=== PATIENT | female | born 1995 | race Two or more races ===

== ENCOUNTER 2016-12-26 22:05 | Emergency (ER) | payer MEDICAID ==
[~2016-12-26] VITALS: Ht 162.6 cm; Wt 90.7 kg
[2016-12-26] MEDS ORDERED: NKM (22:28)
[2016-12-26 22:55] LABS: APPEARANCE,URINE CLEAR; KETONES,URINE 1+ (NEGATIVE); LEUKOCYTE ESTERASE ,URINE 1+ (NEGATIVE); NITRITE,URINE NEGATIVE (NEGATIVE); PH,URINE 5 (4.5-8.0); PROTEIN,URINE NEGATIVE (NEGATIVE); UROBILINOGEN,URINE 1 MG/DL (0.0-1.0)
[2016-12-26 23:01] LABS: RBC,URINE 0-2 /HPF (0 - 2); SQUAMOUS EPITHELIAL CELL,UR MODERATE /LPF (NONE/OCC)
[2016-12-26 23:02] LABS: AMORPHOUS SEDIMENT,UR FEW /LPF; BACTERIA,URINE MODERATE /HPF; MUCUS,URINE FEW /LPF (NONE/OCC)
[2016-12-26] MEDS ORDERED: MACROBID100 MG ORAL (23:21)
[2016-12-26] MEDS ORDERED: ZOFRAN4 MG ORAL (23:21)
--- NOTE | 2016-12-26 23:21 | Emergency Room Report ---
History of Present Illness General Chief Complaint: Vomiting Source: Patient Present Illness HPI Is a 21-year-old female with no past medical history. She presents with chief complaint of vomiting in the morning for the last 3 days. No fever chills no nausea vomiting now. She ate dinner without a problem. She also has some mild left ear pain. She is currently on control pill that she's been on for the last 2 years. Also starting her menstrual. Patient History Past Medical History: see triage record, old chart reviewed Past Surgical History: none Pertinent Family History: none Social History: Denies: smoking Last Menstrual Period: now Now: No Immunizations: other Reviewed Nursing Documentation: PMH: Agreed, PSxH: Agreed Nursing Documentation-PMH Past Medical History: No Stated History Review of Systems Eye: Denies: blurred vision, eye pain ENT: Denies: ear pain, nose congestion, throat swelling Respiratory: Denies: cough, shortness of breath Cardiovascular: Denies: chest pain, palpitations Gastrointestinal: Reports: nausea, vomiting, Denies: abdominal pain, diarrhea Musculoskeletal: Denies: back pain, joint pain Skin: Denies: rash Neurological: Denies: headache, numbness Endocrine: Denies: increased thirst, increased urine Hematologic/Lymphatic: Denies: easy bruising All Other Systems: negative except mentioned in HPI Physical Exam Vital Signs Date Time Temp Pulse Resp B/P Pulse Ox O2 Delivery O2 Flow Rate FiO2 12/26/16 22:23 98.2 78 16 146/89 100 Room Air vitals unremarkable Sp02 EP Interpretation: reviewed, normal General Appearance: well appearing, no apparent distress, alert Head: normocephalic, atraumatic Eyes: bilateral eye EOMI, bilateral eye PERRL ENT: hearing grossly normal, normal pharynx, other - TMs normal Neck: full range of motion, supple, no meningismus Respiratory: chest non-tender, lungs clear, normal breath sounds Cardiovascular #1: regular rate, rhythm, no murmur Gastrointestinal: normal bowel sounds, non tender, no mass, no organomegaly, no bruit, non-distended Musculoskeletal: back normal, gait/station normal, normal range of motion Psychiatric: mood/affect normal Skin: warm/dry Medical Decision Making Diagnostic Impression: Primary Impression: Vomiting Qualified Codes: R11.11 - Vomiting without nausea Additional Impression: UTI (urinary tract infection) Qualified Codes: N30.00 - Acute cystitis without hematuria ER Course Patient with no specific vomiting. No symptoms now. Abdominal exam showed no tenderness. No evidence of gallbladder disease. May have a mild urinary tract infection. Not . We'll discharge him. Last Vital Signs Date Time Temp Pulse Resp B/P Pulse Ox O2 Delivery O2 Flow Rate FiO2 12/26/16 22:23 98.2 78 16 146/89 100 Room Air Status: unchanged Disposition: HOME, SELF-CARE Condition: Stable Scripts Nitrofurantoin Monohyd/M-Cryst (Nitrofurantoin Dickinson-Mcr 100 mg) 100 Mg Capsule 100 MG ORAL Q12H, #14 CAP Prov: LYNN MEEHAN M.D. 12/26/16 Ondansetron (Zofran) 4 Mg Tablet 4 MG ORAL Q6H Y for Nausea & Vomiting, #5 TAB 0 Refills Prov: LYNN MEEHAN M.D. 12/26/16 Patient Instructions: Nausea and Vomiting, Adult Additional Instructions: Followup with your DrVincent in 2-3 days. Return if worse. LYNN MEEHAN M.D. Dec 26, 2016 23:21
[2016-12-26 23:47] VITALS: BP 132/79
[2016-12-26 23:48] VITALS: BP 146/89
== END 2016-12-26 23:49 | disposition home or self-care (01) ==
LOC: EMR 23:00
DX: R11.11 Vomiting without nausea (principal); N30.00 Acute cystitis without hematuria; H92.02 Otalgia, left ear; Z79.3 Long term (current) use of hormonal contraceptives
CPT/HCPCS: 81003; 81025; 87086; 99284

== ENCOUNTER 2017-07-12 19:23 | Emergency (ER) | payer MEDICAID ==
[~2017-07-12] VITALS: Ht 162.6 cm; Wt 86.2 kg
[~2017-07-12 19:23] MED LIST: MACROBID100 MG ORAL; NKM; ZOFRAN4 MG ORAL
[2017-07-12 19:40] VITALS: BP 122/83
[2017-07-12] MEDS ORDERED: FIORINAL 50-321 EACH PO (20:08)
[2017-07-12] MEDS ORDERED: ZOFRAN ODT4 MG ORAL (20:08)
[2017-07-12 20:27] VITALS: BP 122/83
--- NOTE | 2017-07-12 22:50 | Emergency Room Report ---
History of Present Illness General Chief Complaint: Headache Source: Patient Present Illness HPI 22-year-old female presents ED complaining of headache. Started today earlier. States she's been having migraines since she was a teenager. But states that becoming more frequently. Initially noticed photophobia and nausea. Denies any headache at this time. Denies any neck stiffness fevers or chills. States that her brother also has migraines. Patient states she did not take medication for headaches. Denies fevers or chills. Denies cough or dysuria or hematuria. However aggravating or leading factors. Denies any other associated symptom Allergies: Coded Allergies: No Known Allergies (Unverified , 07/12/17) Patient History Past Medical History: none Past Surgical History: none Pertinent Family History: none Social History: Denies: smoking, alcohol use, drug use Last Menstrual Period: July 04 Now: No : 2 Immunizations: UTD Reviewed Nursing Documentation: PMH: Agreed, PSxH: Agreed Review of Systems All Other Systems: negative except mentioned in HPI Physical Exam Vital Signs Date Time Temp Pulse Resp B/P (MAP) Pulse Ox O2 Delivery O2 Flow Rate FiO2 07/12/17 19:29 98.2 83 18 122/83 98 Room Air Sp02 EP Interpretation: reviewed, normal General Appearance: no apparent distress, alert, GCS 15, non-toxic Head: normocephalic, atraumatic Eyes: bilateral eye normal inspection, bilateral eye PERRL ENT: hearing grossly normal, normal pharynx, no angioedema, normal voice Neck: full range of motion, supple/symm/no masses Respiratory: chest non-tender, lungs clear, normal breath sounds, speaking full sentences Cardiovascular #1: regular rate, rhythm, no edema Cardiovascular #2: 2+ carotid (R), 2+ carotid (L), 2+ radial (R), 2+ radial (L) , 2+ dorsalis pedis (R), 2+ dorsalis pedis (L) Gastrointestinal: normal bowel sounds, non tender, soft, non-distended, no guarding, no rebound Rectal: deferred Genitourinary: normal inspection, no CVA tenderness Musculoskeletal: back normal, gait/station normal, normal range of motion, non- tender Neurologic: alert, oriented x3, responsive, motor strength/tone normal, sensory intact, speech normal Psychiatric: judgement/insight normal, memory normal, mood/affect normal, no suicidal/homicidal ideation Reflexes: 3+ bicep (R), 3+ bicep (L), 3+ tricep (R), 3+ tricep (L), 3+ knee (R) , 3+ knee (L) Skin: normal color, no rash, warm/dry, well hydrated Lymphatic: no adenopathy Medical Decision Making Diagnostic Impression: Primary Impression: Migraine Qualified Codes: G43.909 - Migraine, unspecified, not intractable, without status migrainosus ER Course Hospital Course 22-year-old female presents ED complaining of headache. History of migraine. Differential diagnoses include: tension headache, migraine, dehydration Clinical course Patient placed on stretcher. After initial history, physical exam reveals a young female in no acute distress. No focal neurological deficits. No nuchal rigidity. No photophobia or blurry vision at this time. No headache at this time. Given no headache at this time I see no reason for workup or treatment Migraine strongly suspected given family history and patient described a classical symptoms of migraine including photophobia and nausea I will prescribe Fioricet and Zofran. Recommended followup with PMD and neurology consultation as outpatient i. I feel this is a highly complex case requiring extensive working including EKG/Rhythm strip, Xray/CT/US, Blood/urine lab work, repeat exams while in ED, and administration of strong opiates/narcotics for pain control, admission to hospital or close patient follow up. Diagnosis - migraine stable and discharged to home with RX Fiorcet, Zofran. f/up with PMD. return to ED if symptoms recur/worsen. Last Vital Signs Date Time Temp Pulse Resp B/P (MAP) Pulse Ox O2 Delivery O2 Flow Rate FiO2 07/12/17 19:29 98.2 83 18 122/83 98 Room Air Status: improved Disposition: HOME, SELF-CARE Condition: Stable Scripts Ondansetron Odt* (ZOFRAN ODT*) 4 Mg Tab.rapdis 4 MG ORAL Q6H Y for Nausea & Vomiting, #30 TAB 0 Refills Prov: MICHELLE LANGSTON M.D. 07/12/17 Aspirin/Caffeine/Butalbital (Fiorinal 50-325-40 mg Capsule) 1 Each Capsule 1 EA PO Q6HR, #20 CAP Prov: MICHELLE LANGSTON M.D. 07/12/17 Referrals: [facility] (PCP) Patient Instructions: Migraine Headache MICHELLE LANGSTON M.D. Jul 12, 2017 22:50
== END 2017-07-12 20:27 | disposition home or self-care (01) ==
LOC: EMR 20:00
DX: G43.909 Migraine, unspecified, not intractable, without status migrainosus (principal)
CPT/HCPCS: 99283

== ENCOUNTER 2018-11-13 21:53 | Emergency (ER) | payer MEDICAID ==
[~2018-11-13] VITALS: Ht 162.6 cm; Wt 86.2 kg
[~2018-11-13 21:53] MED LIST changes: +FIORINAL 50-321 EACH PO; +ZOFRAN ODT4 MG ORAL
[2018-11-13] MEDS ORDERED: NKM (22:10)
--- NOTE | 2018-11-13 22:27 | NUR ---
ED Nurse Note: Patient transferred from [facility] and presents with abscess at left perineal area adjacent to labia. patient has pain 10/10.
[2018-11-13 22:28] VITALS: BP 134/80
--- NOTE | 2018-11-13 22:33 | NUR ---
ED Nurse Note: ERMD at bedside to perform I&D.
[2018-11-13] MEDS ORDERED: IBUPROFEN600 MG ORAL (22:47)
[2018-11-13] MEDS ORDERED: CLINDAMYCIN HC300 MG ORAL (22:47)
--- NOTE | 2018-11-13 22:47 | Emergency Room Report ---
History of Present Illness General Chief Complaint: Skin Rash/Abscess Source: Patient Present Illness HPI Is a 23-year-old female with no significant past medical history. She presents with chief complaint of a Bartholin abscess. Onset for last few days. Getting more swollen. Painful to palpation walking. Similar symptom in the past. No other complaint. Pain is 8 out of 10. Allergies: Coded Allergies: No Known Allergies (Unverified , 07/12/17) Patient History Past Medical History: see triage record, old chart reviewed Past Surgical History: none Pertinent Family History: none Social History: Denies: smoking Last Menstrual Period: July 2018, patient currently on a depo shot Now: No : 2 Para: 2 Immunizations: other Reviewed Nursing Documentation: PMH: Agreed; PSxH: Agreed Nursing Documentation-PMH Past Medical History: No History, Except For Review of Systems Eye: Denies: eye pain, blurred vision ENT: Denies: ear pain, nose congestion, throat swelling Respiratory: Denies: cough, shortness of breath Cardiovascular: Denies: chest pain, palpitations Gastrointestinal: Denies: abdominal pain, diarrhea, nausea, vomiting Musculoskeletal: Denies: back pain, joint pain Skin: Denies: rash Neurological: Denies: headache, numbness Endocrine: Denies: increased thirst, increased urine Hematologic/Lymphatic: Denies: easy bruising All Other Systems: negative except mentioned in HPI Physical Exam Vital Signs Date Time Temp Pulse Resp B/P (MAP) Pulse Ox O2 Delivery O2 Flow Rate FiO2 11/13/18 22:06 98.8 89 20 97 Room Air 11/13/18 22:28 134/80 vitals normal Sp02 EP Interpretation: reviewed, normal General Appearance: well appearing, no apparent distress, alert Head: normocephalic, atraumatic Eyes: bilateral eye PERRL, bilateral eye EOMI ENT: hearing grossly normal, normal pharynx Neck: full range of motion, supple, no meningismus Respiratory: chest non-tender, lungs clear, normal breath sounds Cardiovascular #1: regular rate, rhythm, no murmur Gastrointestinal: normal bowel sounds, non tender, no mass, no organomegaly, no bruit, non-distended Genitourinary: other - Bartholin abscess to the left side of vagina. Exam done with female nurse in room. Musculoskeletal: back normal, gait/station normal, normal range of motion Neurologic: alert, oriented x3 Psychiatric: mood/affect normal Skin: warm/dry Procedures Incision and Drainage Incision and Drainage : Consent: Verbal Site: vagina Blade Size: 11 I & D Procedure: betadine prep Wound Location: pelvis Anesthesia: 1% Lidocaine Patient Tolerated: Well Complications: None Medical Decision Making Diagnostic Impression: Primary Impression: Bartholin's gland abscess Last Vital Signs Date Time Temp Pulse Resp B/P (MAP) Pulse Ox O2 Delivery O2 Flow Rate FiO2 11/13/18 22:28 98.8 78 20 134/80 97 Room Air Status: improved Disposition: HOME, SELF-CARE Condition: Stable Scripts Ibuprofen* (MOTRIN*) 600 Mg Tablet 600 MG ORAL THREE TIMES A DAY, #30 TAB 0 Refills Prov: Jamar Moy MD 11/13/18 Clindamycin Hcl (CLINDAMYCIN HCL) 300 Mg Capsule 300 MG ORAL THREE TIMES A DAY, #21 CAP Prov: Jamar Moy MD 11/13/18 Referrals: [facility] (PCP) Additional Instructions: Follow-up with your accountant machine processing within a week. Return if symptom worsen. Jamar Moy MD November 13, 2018 22:47
[2018-11-13 22:57] VITALS: BP 134/80
--- NOTE | 2018-11-13 22:57 | NUR ---
ED Nurse Note: Patient cleared for discharge by ERMD, no s/s of acute distress. ID band removed. Patient verbalized understanding of discharge instructions.
== END 2018-11-13 23:00 | disposition home or self-care (01) ==
LOC: EMR 22:25
DX: N75.1 Abscess of Bartholin's gland (principal)
CPT/HCPCS: 57010; 99283; Z7502

== ENCOUNTER 2018-12-23 11:32 | Emergency (ER) | payer MEDICAID ==
[~2018-12-23] VITALS: Ht 162.6 cm; Wt 81.6 kg
[~2018-12-23 11:32] MED LIST changes: +CLINDAMYCIN HC300 MG ORAL; +IBUPROFEN600 MG ORAL
[2018-12-23 11:53] VITALS: BP 137/91
--- NOTE | 2018-12-23 11:53 | NUR ---
ED Nurse Note:pt. came with left vaginal swelling possible cyst, exam was done by ER MD in my presence, no c/o pain at this time, no drainage noted
[2018-12-23] MEDS ORDERED: CLINDAMYCIN HC300 MG ORAL (11:54)
[2018-12-23] MEDS ORDERED: IBUPROFEN600 MG ORAL (11:54)
[2018-12-23 11:57] VITALS: BP 137/91
--- NOTE | 2018-12-23 11:58 | NUR ---
ER DISCHARGE NOTE: Patient is cleared to be discharged per ERMD, pt is aox4, on room air, with stable vital signs. pt was given dc and prescription instructions, pt was able to verbalize understanding pt is able to ambulate with steady gait. pt took all belongings.
--- NOTE | 2018-12-23 13:59 | Emergency Room Report ---
History of Present Illness General Chief Complaint: Skin Rash/Abscess Source: Patient Present Illness HPI Patient presents with complaints of the left lower vaginal area discomfort similar to previous Patient had incision performed here last month Reports that the area had improved however over the past several days again felt a small increased palpable area in the lateral vaginal area This was also associated with some discomfort on touch Denies any vaginal discharge denies any fevers or chills patient has not had the ability to follow-up with tunnel kiln firer since then Allergies: Coded Allergies: No Known Allergies (Unverified , 07/12/17) Patient History Past Medical History: see triage record Pertinent Family History: none Last Menstrual Period: LAST WEEK Reviewed Nursing Documentation: PMH: Agreed; PSxH: Agreed Nursing Documentation-PMH Past Medical History: No Stated History Review of Systems All Other Systems: negative except mentioned in HPI Physical Exam Vital Signs Date Time Temp Pulse Resp B/P (MAP) Pulse Ox O2 Delivery O2 Flow Rate FiO2 12/23/18 11:34 98.1 91 23 137/91 (106) 100 Room Air Sp02 EP Interpretation: reviewed, normal General Appearance: well appearing, no apparent distress Head: normocephalic, atraumatic Eyes: bilateral eye PERRL, bilateral eye EOMI ENT: hearing grossly normal, normal pharynx Neck: supple Respiratory: lungs clear Cardiovascular #1: regular rate, rhythm Gastrointestinal: non tender, soft Genitourinary: other - Left lower area of the Labora minor of the vaginal area reveals a small palpable cyst type structure no erythema approximately half by half centimeter Musculoskeletal: normal inspection Neurologic: alert, oriented x3 Skin: other - As noted above Lymphatic: no adenopathy Medical Decision Making Diagnostic Impression: Primary Impression: bartholyn cyst ER Course Patient appears to have findings consistent with a Bartholin cyst does not appear to be Infected at this time I discussed with the patient's the importance of close follow-up with gynecology As given the lack of full improvement with incision She will likely require further more in-depth evaluation by this specialty and possible further procedure patient is otherwise medically stable Was prophylactically placed on antibiotics and requires close follow-up Last Vital Signs Date Time Temp Pulse Resp B/P (MAP) Pulse Ox O2 Delivery O2 Flow Rate FiO2 12/23/18 11:57 98.1 72 23 137/91 100 Room Air Status: unchanged Disposition: HOME, SELF-CARE Condition: Stable Scripts Ibuprofen* (MOTRIN*) 600 Mg Tablet 600 MG ORAL Q8H PRN for For Pain, #20 TAB 0 Refills Prov: Norris Rivas DO 12/23/18 Clindamycin Hcl (CLINDAMYCIN HCL) 300 Mg Capsule 300 MG ORAL THREE TIMES A DAY, #21 CAP Prov: Norris Rivas DO 12/23/18 Referrals: [facility] Patient Instructions: Bartholin Cyst or Abscess, [id number] Additional Instructions: Patient is provided with the discharge instructions notified to follow up with primary doctor in the next 2-3 days otherwise return to the er with any worsening symptoms. Please note that this report is being documented using [employer] technology. This can lead to erroneous entry secondary to incorrect interpretation by the dictating instrument. Norris Rivas DO Dec 23, 2018 13:59
== END 2018-12-23 13:30 | disposition home or self-care (01) ==
LOC: EMR 13:20
DX: N75.0 Cyst of Bartholin's gland (principal)
CPT/HCPCS: 99282

== ENCOUNTER 2019-02-08 11:26 | Emergency (ER) | payer MEDICAID ==
[~2019-02-08] VITALS: Ht 162.6 cm; Wt 83.9 kg
[2019-02-08 11:37] VITALS: BP 116/75
[2019-02-08] MEDS ORDERED: CEPHALEXIN500 M1 ORAL (12:11)
[2019-02-08] MEDS ORDERED: IBUPROFEN600 MG ORAL (12:11)
--- NOTE | 2019-02-08 12:13 | Emergency Room Report ---
History of Present Illness General Chief Complaint: Toothache Source: Patient, Medical Record Present Illness HPI 23-year-old female complaining of left sided tooth ache X3 days. States pain is 10/10, Sharp in quality. No aggravating/ relieving factors. Denies fall or trauma. Denies fever, rash, vomiting, diarrhea or abdominal pain. Denies chest pain or shortness of breath. LMP February 02, 2019. No current medications. Has appt with dentist scheduled in 5 days. Allergies: Coded Allergies: No Known Allergies (Unverified , 07/12/17) Patient History Past Medical History: none Past Surgical History: none Social History: Denies: smoking, alcohol use, drug use Last Menstrual Period: 01/2019 Now: No : 2 Para: 0 Nursing Documentation-PMH Past Medical History: No Stated History Review of Systems All Other Systems: negative except mentioned in HPI Physical Exam Vital Signs Date Time Temp Pulse Resp B/P (MAP) Pulse Ox O2 Delivery O2 Flow Rate FiO2 02/08/19 11:32 98.2 72 18 116/75 (89) 99 Room Air Sp02 EP Interpretation: reviewed, normal Eyes: bilateral eye normal inspection, bilateral eye PERRL ENT: normal pharynx, TMs + canals normal, other - no erythema over left cheek or jaw. left lower posterior molar: TTP with tongue depressor, multiple cavities. Respiratory: chest non-tender, lungs clear, normal breath sounds, speaking full sentences Cardiovascular #1: regular rate, rhythm, no edema Neurologic: alert, oriented x3, responsive, motor strength/tone normal, sensory intact, speech normal Psychiatric: mood/affect normal Medical Decision Making PA Attestation This patient was seen under the direct supervision of [Dr. Deluca] who directed all aspects of care and diagnostic interpretation. Diagnostic Impression: Primary Impression: Toothache ER Course ED course HPI: 23 year-old female with no significant past medical history complaining of pain to the left lower toothache x3 days. Denies fever. Patient is well-appearing, nontoxic in appearance. Normal vitals, afebrile. Patient speaking in full sentences without respiratory distress. Denies chest pain or shortness of breath. Ddx: Gingivitis versus periodontal disease versus dental abscess HPI & PE consistent with: Toothache/ Dental pain Orders/ Interventions: None Disposition: Stable for discharge home. Prescription for Keflex 500 mg 3 times daily x1 week and ibuprofen as needed for pain given. Soft Liquid diet advised. Apply ice pack to affected area. Follow-up with dentist in 2 to 3 days or return to ED if worsening symptoms, new symptoms, or sudden change in condition. Please note that this Emergency Department Report was dictated using [employer] acquisition manager technology software, occasionally this can lead to erroneous entry secondary to interpretation by the dictation equipment. Last Vital Signs Date Time Temp Pulse Resp B/P (MAP) Pulse Ox O2 Delivery O2 Flow Rate FiO2 02/08/19 11:37 98.2 72 18 116/75 99 Room Air Status: unchanged Disposition: HOME, SELF-CARE Condition: Stable Scripts Ibuprofen* (MOTRIN*) 600 Mg Tablet 600 MG ORAL Q8H PRN for For Pain, #20 TAB 0 Refills Prov: Deshaun Conway 02/08/19 Cephalexin* (CEPHALEXIN*) 500 Mg Tablet 500 MG ORAL EVERY 8 HOURS for 7 Days, #21 CAP Prov: Deshaun Conway 02/08/19 Additional Instructions: Followup with PCP/ dentist in 2 to 3 days or return to ED if worsening symptoms , new symptoms (fever), or sudden change in condition. Deshaun Conway Feb 08, 2019 12:13
[2019-02-08 12:28] VITALS: BP 112/69
== END 2019-02-08 12:30 | disposition home or self-care (01) ==
LOC: EMR 12:06
DX: K08.89 Other specified disorders of teeth and supporting structures (principal)
CPT/HCPCS: 99282

== ENCOUNTER 2019-02-15 14:07 | Emergency (ER) | payer MEDICAID ==
[~2019-02-15] VITALS: Ht 162.6 cm; Wt 81.6 kg
[~2019-02-15 14:07] MED LIST changes: +CEPHALEXIN500 M1 ORAL
[2019-02-15 15:00] VITALS: BP 116/72
--- NOTE | 2019-02-15 15:00 | NUR ---
ED Nurse Note: pt walked in due to skin rash on vagina started yesterday. denies pain. pt stated itis growing. pt is seen by shakeel banegas. will continue to monitor
--- NOTE | 2019-02-15 15:03 | Emergency Room Report ---
History of Present Illness General Chief Complaint: Skin Rash/Abscess Source: Patient, Medical Record Present Illness HPI 23-year-old female with no significant past medical history here complaining of a nonpainful mass in the vaginal area times 3 months. Patient was here back in October 2018 and had a Bartholin cyst which was drained and put on antibiotics. Patient reports that she never follow-up with her primary care provider manager organizational and keeps having recurrences of a similar cyst in the area. She reports that this time she has a nonpainful mass in the vaginal area without any pus drainage. Denies fever and chills. Reports that she periodically waxes vaginal area. Denies vaginal discharge, dysuria, urinary frequency. Denies chest pain, shortness of breath, palpitation, and other associated symptoms. Has not taken medication for pain. Denies pruritus. Allergies: Coded Allergies: No Known Allergies (Unverified , 07/12/17) Patient History Past Medical History: see triage record Past Surgical History: unable to obtain Pertinent Family History: none Last Menstrual Period: 02/02/2019 Now: No : 2 Para: 2 Immunizations: UTD Reviewed Nursing Documentation: PMH: Agreed; PSxH: Agreed Review of Systems All Other Systems: negative except mentioned in HPI Physical Exam Vital Signs Date Time Temp Pulse Resp B/P (MAP) Pulse Ox O2 Delivery O2 Flow Rate FiO2 02/15/19 14:41 98.4 81 18 116/72 (87) 97 Room Air Sp02 EP Interpretation: reviewed, normal General Appearance: no apparent distress, alert, GCS 15, non-toxic Head: normocephalic, atraumatic Eyes: bilateral eye normal inspection, bilateral eye PERRL ENT: hearing grossly normal, normal pharynx, no angioedema, normal voice Neck: full range of motion, supple/symm/no masses Respiratory: chest non-tender, lungs clear, normal breath sounds, speaking full sentences Cardiovascular #1: regular rate, rhythm, no edema, no murmur Gastrointestinal: normal inspection, soft, no mass Genitourinary: no CVA tenderness, other - Bartholin cyst noted in the vaginal area however no pus drainage Musculoskeletal: normal inspection, back normal Neurologic: normal inspection, alert, oriented x3 Psychiatric: normal inspection Skin: no rash Lymphatic: normal inspection, no adenopathy Medical Decision Making PA Attestation All my diagnosis and treatment plans were reviewed ad discussed with my supervising physician Dr. Flores Diagnostic Impression: Primary Impression: Vaginal cyst Additional Impression: Bartholin cyst ER Course 23-year-old female with no significant past medical history here complaining of a nonpainful mass in the vaginal area times 3 months. Patient was here back in October 2018 and had a Bartholin cyst which was drained and put on antibiotics. Patient reports that she never follow-up with her primary care provider manager organizational and keeps having recurrences of a similar cyst in the area. She reports that this time she has a nonpainful mass in the vaginal area without any pus drainage. Denies fever and chills. Reports that she periodically waxes vaginal area. Denies vaginal discharge, dysuria, urinary frequency. Denies chest pain, shortness of breath, palpitation, and other associated symptoms. Has not taken medication for pain. Denies pruritus. Ddx considered but are not limited to : Cellulitis, Bartholin abscess, Bartholin cyst, vaginal mass Vital signs: are WNL, pt. is afebrile H&PE are most consistent with: Bartholin cyst ORDERS: Keflex, ibuprofen ED INTERVENTIONS: None required at this time. DISCHARGE: At this time pt. is stable for d/c to home. Will provide printed patient care instructions, and any necessary prescriptions. Care plan and follow up instructions have been discussed with the patient prior to discharge. Patient refuses incision and drainage and reports that she is going to follow- up with primary care. She requests antibiotics. Denies pain. Advised to return to the emergency room with fever and chills. Last Vital Signs Date Time Temp Pulse Resp B/P (MAP) Pulse Ox O2 Delivery O2 Flow Rate FiO2 02/15/19 14:41 98.4 81 18 116/72 (87) 97 Room Air Disposition: HOME, SELF-CARE Condition: Stable Scripts Ibuprofen (Ibu) 800 Mg Tablet 800 MG PO BID, #15 TAB Prov: Ed Jang 02/15/19 Cephalexin* (KEFLEX*) 500 Mg Capsule 500 MG ORAL EVERY 6 HOURS for 7 Days, #28 CAP Prov: Ed Jang 02/15/19 Patient Instructions: Bartholin Cyst or Abscess Additional Instructions: Due to recurrent Bartholin cyst follow-up with manager organizational you need to see her primary care physician first noted to get referral. Take antibiotics as directed since you are in no pain or discomfort no drainage is necessary and your cyst has not turned into an abscess. If worsening symptoms return to the emergency room. Ed Jang Feb 15, 2019 15:03
[2019-02-15] MEDS ORDERED: IBU800 MG PO (15:04)
[2019-02-15] MEDS ORDERED: CEPHALEXIN500 MG ORAL (15:04)
[2019-02-15 15:15] VITALS: BP 116/72
--- NOTE | 2019-02-15 15:15 | NUR ---
ER DISCHARGE NOTE: Patient is cleared to be discharged per ERMD, pt is aox4, on room air, with stable vital signs. pt was given dc and prescription instructions, pt was able to verbalize understanding, pt id band removed without complications. pt is able to ambulate with steady gait. pt took all belongings.
== END 2019-02-15 15:15 | disposition home or self-care (01) ==
LOC: EMR 15:04
DX: N75.0 Cyst of Bartholin's gland (principal); N89.8 Other specified noninflammatory disorders of vagina
CPT/HCPCS: 99282

== ENCOUNTER 2019-04-07 00:41 | Emergency (ER) | payer MEDICAID ==
[~2019-04-07] VITALS: Ht 162.6 cm; Wt 88.5 kg
[~2019-04-07 00:41] MED LIST changes: +CEPHALEXIN500 MG ORAL; +IBU800 MG PO; +IMITREX50 MG ORAL
[2019-04-07 00:44] VITALS: BP 111/68
--- NOTE | 2019-04-07 01:10 | NUR ---
ED Nurse Note: Patient nursed in room otho. Await review. Complaining of cramping pain score 5 since this morning and spotting. LMP 1 Sept. Reports being 5 weeks . Urine sample obtained.
--- NOTE | 2019-04-07 01:15 | NUR ---
ED Nurse Note: Patient reports not yet having seen OBGYN care but has been seeen by PCP. Partner and daughter taken to bedside from waiting area.
--- NOTE | 2019-04-07 01:35 | Emergency Room Report ---
History of Present Illness General Chief Complaint: Complications Source: Patient Present Illness [facility] This is a 23-year-old female who is 3, para 2, approximately 5 and half weeks . She presents with chief complaint of vaginal bleeding. She had an ultrasound around 4 weeks at [facility]. She said that they only saw a gestational sac. She was doing well until today. She started spotting and then have heavy bleeding with clots tonight. She said it felt like a normal menstruation. Denies any pain other than cramps. No nausea no vomiting. No trauma. Denies any other complaint. Allergies: Coded Allergies: No Known Allergies (Unverified , 07/12/17) Patient History Past Medical History: see triage record, old chart reviewed Past Surgical History: none Pertinent Family History: none Social History: Denies: smoking Last Menstrual Period: jan Now: Yes : 3 Para: 2 Immunizations: other Reviewed Nursing Documentation: PMH: Agreed; PSxH: Agreed Nursing Documentation-PMH Past Medical History: No Stated History Review of Systems Eye: Denies: eye pain, blurred vision ENT: Denies: ear pain, nose congestion, throat swelling Respiratory: Denies: cough, shortness of breath Cardiovascular: Denies: chest pain, palpitations Gastrointestinal: Denies: abdominal pain, diarrhea, nausea, vomiting Genitourinary: Reports: vag bleed/dc Musculoskeletal: Denies: back pain, joint pain Skin: Denies: rash Neurological: Denies: headache, numbness Endocrine: Denies: increased thirst, increased urine Hematologic/Lymphatic: Denies: easy bruising All Other Systems: negative except mentioned in HPI Physical Exam Vital Signs Date Time Temp Pulse Resp B/P (MAP) Pulse Ox O2 Delivery O2 Flow Rate FiO2 04/07/19 00:44 98.1 92 16 111/68 (82) 99 Room Air Vitals normal Sp02 EP Interpretation: reviewed, normal General Appearance: well appearing, no apparent distress, alert Head: normocephalic, atraumatic Eyes: bilateral eye PERRL, bilateral eye EOMI ENT: hearing grossly normal, normal pharynx Neck: full range of motion, supple, no meningismus Respiratory: chest non-tender, lungs clear, normal breath sounds Cardiovascular #1: regular rate, rhythm, no murmur Gastrointestinal: normal bowel sounds, non tender, no mass, no organomegaly, no bruit, non-distended Musculoskeletal: back normal, gait/station normal, normal range of motion Psychiatric: mood/affect normal Medical Decision Making Diagnostic Impression: Primary Impression: Spontaneous in first trimester Additional Impression: UTI (urinary tract infection) Qualified Codes: N30.00 - Acute cystitis without hematuria ER Course Patient presents with vaginal bleeding. The fact that she described this as irregular menstrual bleed and with a low hCG, this points toward spontaneous . She said this saw gestational sac a week and a half ago. Will need repeat blood work in 2 days and/or ultrasound. I see no need for emergent ultrasound at this moment because hCG level is very low. No evidence of ectopic since she had an ultrasound a week ago that showed no ectopic. She is not on fertility medication. Last Vital Signs Date Time Temp Pulse Resp B/P (MAP) Pulse Ox O2 Delivery O2 Flow Rate FiO2 04/07/19 00:44 98.1 92 16 111/68 (82) 99 Room Air Status: improved Disposition: HOME, SELF-CARE Condition: Stable Scripts Nitrofurantoin Monohyd/M-Cryst (Nitrofurantoin [place]-Mcr 100 mg) 100 Mg Capsule 100 MG ORAL Q12H, #14 CAP Prov: Jamar Moy MD 04/07/19 Additional Instructions: Follow-up with your doctor in 2 to 3 days for recheck on your level. Call your TRACTOR TRAILER OPERATOR to compare level done last week. Return if worse. Jamar Moy MD Apr 07, 2019 01:35
[2019-04-07 01:58] LABS: BILIRUBIN, URINE NEGATIVE (NEGATIVE); GLUCOSE, URINE (UA) NEGATIVE (NEGATIVE); KETONES,URINE NEGATIVE (NEGATIVE); LEUKOCYTE ESTERASE ,URINE 1+ (NEGATIVE); NITRITE,URINE NEGATIVE (NEGATIVE); PH,URINE 6 (4.5-8.0); PROTEIN,URINE 1+ (NEGATIVE); UROBILINOGEN,URINE 4 MG/DL (0.0-1.0)
[2019-04-07 02:14] LABS: APPEARANCE,URINE SLIGHTLY CLOUDY; COLOR,URINE YELLOW
[2019-04-07] MEDS ORDERED: MACROBID100 MG ORAL (02:35)
--- NOTE | 2019-04-07 02:40 | NUR ---
ER DISCHARGE NOTE: Patient is cleared to be discharged per ERMD, pt is aox4, on room air, with stable vital signs. pt was given dc instructions by RN completeing discharge, pt was able to verbalize understanding, pt id band removed. pt is able to ambulate with steady gait. pt took all belongings.
== END 2019-04-07 02:40 | disposition home or self-care (01) ==
LOC: EMR 01:13
DX: O03.9 Complete or unspecified spontaneous abortion without complication (principal); O23.11 Infections of bladder in pregnancy, first trimester; Z3A.01 Less than 8 weeks gestation of pregnancy
CPT/HCPCS: 36415; 81003; 84702; 86850; 86900; 86901; Z7502; 99283

== ENCOUNTER 2020-02-13 21:51 | Emergency (ER) | payer MEDICAID ==
[~2020-02-13] VITALS: Ht 162.6 cm; Wt 87.1 kg
[~2020-02-13 21:51] MED LIST changes: +RIBOFLAVIN100 MG PO
[2020-02-13 22:15] VITALS: BP 134/80
--- NOTE | 2020-02-13 22:17 | Emergency Room Report ---
History of Present Illness General Chief Complaint: General Complaint Source: Patient Present Illness HPI 24-year-old female with no past medical history. She presents with chief complaint of abnormal labs. She said that she is noticed that her eyes and scans are yellowish in nature. She has no abdominal pain. She said this been ongoing for a month. Before that she was taking some protein shake diet. She is not drinker. She says she only drink 1-2 beer once in a while. No Tylenol use. She went to her doctor a week ago. She had lab done and it came back abnormal liver enzyme. She was sent here to the ER. Patient has no symptoms other than these abnormal labs. 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 COVID-19 Screening: Negative COVID-19 COVID-19 Testing Source: 02/04/20 Patient History Past Medical History: see triage record, old chart reviewed Past Surgical History: none Pertinent Family History: none Social History: Denies: smoking, alcohol use Last Menstrual Period: july 2019 Now: No - IUD Immunizations: other Reviewed Nursing Documentation: PMH: Agreed; PSxH: Agreed Nursing Documentation-PMH Past Medical History: No History, Except For Hx Neurological Problems: Yes - migraine Review of Systems Eye: Denies: eye pain, blurred vision ENT: Denies: ear pain, nose congestion, throat swelling Respiratory: Denies: cough, shortness of breath Cardiovascular: Denies: chest pain, palpitations Gastrointestinal: Denies: abdominal pain, diarrhea, nausea, vomiting Musculoskeletal: Denies: back pain, joint pain Skin: Reports: change in color; Denies: rash Neurological: Denies: headache, numbness Endocrine: Denies: increased thirst, increased urine Hematologic/Lymphatic: Denies: easy bruising All Other Systems: negative except mentioned in HPI Physical Exam Vital Signs Date Time Temp Pulse Resp B/P (MAP) Pulse Ox O2 Delivery O2 Flow Rate FiO2 02/13/20 21:59 99.1 105 18 134/80 (98) 100 Room Air Vitals unremarkable Sp02 EP Interpretation: reviewed, normal General Appearance: well appearing, no apparent distress, alert Head: normocephalic, atraumatic Eyes: bilateral eye PERRL, bilateral eye EOMI, bilateral eye scleral icterus ENT: hearing grossly normal, normal pharynx Neck: full range of motion, supple, no meningismus Respiratory: chest non-tender, lungs clear, normal breath sounds Cardiovascular #1: regular rate, rhythm, no murmur Gastrointestinal: normal bowel sounds, non tender, no mass, no organomegaly, no bruit, non-distended Musculoskeletal: back normal, normal range of motion, gait/station normal Psychiatric: mood/affect normal Skin: jaundice Medical Decision Making Diagnostic Impression: Primary Impression: Hyperbilirubinemia Additional Impression: Abnormal liver enzymes ER Course She came in with abnormal liver enzymes. Laboratory data show that her LFTs are elevated. Bilirubin is 9. This explain her jaundice and icterus. She is also felt itching. This is probably secondary to her elevated bilirubin. CT scan and ultrasound he was unremarkable. No obvious source for of her problem. Hepatitis panel sent. She will need further work-up with GI doctor. Her CT scan showed a very distended stomach with ingested content. Patient said that she ate a large Prydeinig meal right before she came in. CT/MRI/US Diagnostic Results CT/MRI/US Diagnostic Results #1: Imaging Test Ordered: CT abdomen pelvis Impression Read by radiologist. Distended stomach with ingested content. Otherwise negative. CT/MRI/US Diagnostic Results #2: Imaging Test Ordered: Ultrasound abdomen Impression Read by radiologist. No acute process. Last Vital Signs Date Time Temp Pulse Resp B/P (MAP) Pulse Ox O2 Delivery O2 Flow Rate FiO2 02/13/20 21:59 99.1 105 18 134/80 (98) 100 Room Air Status: improved Disposition: HOME, SELF-CARE Condition: Stable Scripts Hydroxyzine Pamoate* (VISTARIL*) 50 Mg Capsule 50 MG ORAL EVERY 6 HOURS, #30 TAB 0 Refills Prov: Jamar Moy MD 02/14/20 Additional Instructions: Bring your laboratory data and CT and ultrasound report to your doctor. You will need referral to see a GI/liver specialist. You will need work-up. Return if symptoms worsen. Jamar Moy MD Feb 13, 2020 22:17
--- NOTE | 2020-02-13 23:14 | Diagnostic Imaging Report ---
EXAM: CT Abdomen and Pelvis Without Intravenous Contrast CLINICAL HISTORY: PAIN TECHNIQUE: Axial computed tomography images of the abdomen and pelvis without intravenous contrast. CTDI is 10 mGy and DLP is 522 mGy-cm. One or more of the following dose reduction techniques were used: automated exposure control, adjustment of the mA and/or kV according to patient size, use of iterative reconstruction technique. Coronal and sagittal reformatted images were created and reviewed. COMPARISON: No relevant prior studies available. FINDINGS: Lung bases: Unremarkable. No mass. No consolidation. ABDOMEN: Liver: Unremarkable. Gallbladder and bile ducts: Unremarkable. No calcified stones. No ductal dilation. Pancreas: Unremarkable. No ductal dilation. Spleen: Unremarkable. No splenomegaly. Adrenals: Unremarkable. No mass. Kidneys and ureters: Incidentally noted left renal nonobstructing 0.4 cm nephrolith. Remaining renal structures unremarkable. Stomach and bowel: Stomach markedly distended with ingested contents, this could be a cause for pain. Fecal small bowel contents could be incidental or could represent slow intestinal transit and could be a cause for pain. No mucosal thickening. PELVIS: Appendix: No findings to suggest acute appendicitis. Bladder: Unremarkable. No stones. Reproductive: Unremarkable as visualized. ABDOMEN and PELVIS: Intraperitoneal space: Unremarkable. No free air. No significant fluid collection. Bones/joints: No acute fracture. No dislocation. Soft tissues: Unremarkable. Vasculature: Unremarkable. No abdominal aortic aneurysm. Lymph nodes: Unremarkable. No enlarged lymph nodes. IMPRESSION: 1. Stomach markedly distended with ingested contents, this could be a cause for pain. 2. Fecal small bowel contents could be incidental or could represent slow intestinal transit and could be a cause for pain. 3. Otherwise no acute abnormality identified to account for patient presentation. 4. Incidentally noted left renal nonobstructing 0.4 cm nephrolith.
--- NOTE | 2020-02-14 00:27 | Diagnostic Imaging Report ---
EXAM: US Abdomen Complete CLINICAL HISTORY: PAIN TECHNIQUE: Real-time ultrasound of the abdomen with image documentation. COMPARISON: Same-day CT abdomen and pelvis FINDINGS: Liver: Mild hepatomegaly of uncertain significance. Otherwise normal liver. Liver 18.5 cm No intrahepatic bile duct dilation. Gallbladder: Nondistended gallbladder with mild wall thickening probably due to contraction. Multiple gallstones. Common bile duct: CBD 0.3 cm No stones. No dilation. Pancreas: Unremarkable as visualized. Kidneys: Right kidney 10.7 cm Left kidney 11.5 cm No stones. No hydronephrosis. Spleen: Spleen 12.6 cm Aorta: Aorta approximately 1.8cm No aneurysm. Inferior vena cava: Unremarkable. Other findings: GB wall 0.4 cm IMPRESSION: 1. No acute abnormality definitively identified to explain patient presentation. 2. Consider nonemergent hepatobiliary scintigraphy to evaluate for other causes of right upper quadrant pain if there is persistent concern, appearance could be compatible with chronic cholecystitis in the proper clinical context. 3. Mild hepatomegaly of uncertain significance. 4. Otherwise unremarkable study.
[2020-02-14] MEDS ORDERED: VISTARIL50 MG ORAL (00:40)
[2020-02-14 23:30] VITALS: BP 141/80
== END 2020-02-14 00:50 | disposition home or self-care (01) ==
LOC: EMR 22:15
DX: E80.6 Other disorders of bilirubin metabolism (principal); R94.5 Abnormal results of liver function studies
CPT/HCPCS: 74176; 76700; 81025; Z7502; 86705; 86709; 86803; 87340; 99284

== ENCOUNTER 2020-08-10 19:11 | Emergency (ER) | payer MEDICAID ==
[~2020-08-10] VITALS: Ht 162.6 cm; Wt 90.7 kg
[~2020-08-10 19:11] MED LIST changes: +VISTARIL50 MG ORAL
--- NOTE | 2020-08-10 19:35 | NUR ---
ED Nurse Note: Pt ambulated into ed with no assistance. C/O bilateral foot and ankle swelling x1 week. Reports she is supposed to have an appointment scheduled in a couple of days with a turn laster for unknown liver issue. Pt denies pain but reports her abdomen feels swollen.
[2020-08-10 20:05] LABS: BASOPHILS % (AUTO) 1.9 % (0.0-2.0); EOSINOPHILS % (AUTO) 2.8 % (0.0-3.0); HEMATOCRIT 30.1 % (37.0-47.0); HEMOGLOBIN 9.4 G/DL (12.0-16.0); LYMPHOCYTES % (AUTO) 34.8 % (20.0-45.0); MEAN CORPUSCULAR VOLUME 105 FL (80-99); MONOCYTES % (AUTO) 9.3 % (1.0-10.0); NEUTROPHILS % (AUTO) 51.2 % (45.0-75.0); PLATELET COUNT 106 K/UL (150-450); RED BLOOD COUNT 2.86 M/UL (4.20-5.40); RED CELL DISTRIBUTION WIDTH 17.2 % (11.6-14.8); WHITE BLOOD COUNT 9.3 K/UL (4.8-10.8)
[2020-08-10 20:13] LABS: ANION GAP 4 mmol/L (5-15); BLOOD UREA NITROGEN 8 mg/dL (7-18); CALCIUM 7.2 MG/DL (8.5-10.1); CARBON DIOXIDE 23 MMOL/L (21-32); CHLORIDE 106 MMOL/L (98-107); CREATININE 0.8 MG/DL (0.55-1.30); POTASSIUM 3.5 MMOL/L (3.5-5.1); SODIUM 133 MMOL/L (136-145)
--- NOTE | 2020-08-10 20:26 | Emergency Room Report ---
History of Present Illness General Chief Complaint: Edema Source: Patient Present Illness HPI Disclaimer: Please note that this report is being documented using DRAGON technology. This can lead to erroneous entry secondary to incorrect interpretation by the dictating instrument. HPI: 25-year-old female presents for evaluation of bilateral lower extremity edema. Patient states she noted swelling over the past week in her feet. Sometimes it is painful to walk. Denies redness or heat. Denies skin breakdown. Denies trauma or injury. No prior history of swelling in the feet. Tried elevating her legs and soaking them in salted water. Denies numbness or tingling. Denies weakness. 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 EOMI. Resp: Normal work of breathing Skin: Intact. No abrasions, laceration or rash over the exposed skin MSK: Normal tone and bulk. Moving all extremities. No obvious deformity. Bilateral lower extremity nonpitting edema mid martinez distally. Palpable posterior tibialis pulses bilaterally brisk capillary refill of the digits. Neuro: Awake and alert. Mentating appropriately Medical Decision Making Diagnostic Impression: Primary Impression: Anemia Additional Impression: Peripheral edema ER Course 25-year-old female presents with symmetrical bilateral lower extremity edema. Concern for DVT or kidney issues labs and ultrasound studies were obtained. No significant findings. Kidney function within normal limits. No DVT identified according to initial interpretation. Likely peripheral edema. Consult on elevation, compression stockings, losing weight and changing her diet to reduce the amount of salt she is taking in. Follow-up with her PMD. Instructed to return with new or worsening symptoms. Laboratory Tests Test 08/10/20 19:57 White Blood Count 9.3 K/UL (4.8-10.8) Red Blood Count 2.86 M/UL (4.20-5.40) L Hemoglobin 9.4 G/DL (12.0-16.0) L Hematocrit 30.1 % (37.0-47.0) L Mean Corpuscular Volume 105 FL (80-99) H Mean Corpuscular Hemoglobin 33.1 PG (27.0-31.0) H Mean Corpuscular Hemoglobin Concent 31.4 G/DL (32.0-36.0) L Red Cell Distribution Width 17.2 % (11.6-14.8) H Platelet Count 106 K/UL (150-450) L Mean Platelet Volume 8.5 FL (6.5-10.1) Neutrophils (%) (Auto) 51.2 % (45.0-75.0) Lymphocytes (%) (Auto) 34.8 % (20.0-45.0) Monocytes (%) (Auto) 9.3 % (1.0-10.0) Eosinophils (%) (Auto) 2.8 % (0.0-3.0) Basophils (%) (Auto) 1.9 % (0.0-2.0) Sodium Level 133 MMOL/L (136-145) L Potassium Level 3.5 MMOL/L (3.5-5.1) Chloride Level 106 MMOL/L (98-107) Carbon Dioxide Level 23 MMOL/L (21-32) Anion Gap 4 mmol/L (5-15) L Blood Urea Nitrogen 8 mg/dL (7-18) Creatinine 0.8 MG/DL (0.55-1.30) Estimated Glomerular Filtration Rate > 60 mL/min (>60) Glucose Level 106 MG/DL (74-106) Calcium Level 7.2 MG/DL (8.5-10.1) L Last Vital Signs Date Time Temp Pulse Resp B/P (MAP) Pulse Ox O2 Delivery O2 Flow Rate FiO2 08/10/20 19:18 98.4 108 18 129/67 (87) 100 Room Air Disposition: HOME, SELF-CARE Condition: Stable Patient Instructions: Peripheral Edema Additional Instructions: Please follow-up with your primary care doctor in the next 1 to 3 days to discuss this emergency department visit and for reevaluation. If you have any new or worsening symptoms please return to the emergency department for reevaluation. Please note that this report is being documented using Broadcastr technology. This can lead to erroneous entry secondary to incorrect interpretation by the dictating instrument. Noah Deluca MD Aug 10, 2020 20:26
--- NOTE | 2020-08-10 20:30 | NUR ---
ED Nurse Note: US in room.
[2020-08-10 20:45] VITALS: BP 125/70
--- NOTE | 2020-08-10 20:49 | NUR ---
ER DISCHARGE NOTE: Patient is cleared to be discharged per ER MD, pt is aaox4, on room air, with stable vital signs. pt was given d/c instructions, pt was able to verbalize understanding, pt id band removed. pt is able to ambulate with steady gait. pt took all belongings.
--- NOTE | 2020-08-11 15:02 | Diagnostic Imaging Report ---
Indication: Reason For Exam: DVT Technique: Grayscale and duplex images of the bilateral lower extremity veins Comparison: None Findings: Bilaterally, grayscale and duplex images demonstrate no evidence of intraluminal thrombus. Normal phasic Doppler waveforms, demonstrating normal augmentation response and no evidence of valvular insufficiency. Greater saphenous vein(s) and tibial veins are patent. Normal compressibility. There is edema of the bilateral calf subcutaneous fat Impression: Negative for evidence of lower extremity deep venous thrombosis bilaterally
== END 2020-08-10 20:50 | disposition home or self-care (01) ==
LOC: EMR 19:40
DX: R60.0 Localized edema (principal); D64.9 Anemia, unspecified
CPT/HCPCS: 36415; 80048; 85025; 93970; Z7502; 99284

== ENCOUNTER 2020-08-22 14:04 | Inpatient (IN) | payer MEDICAID ==
[~2020-08-22] VITALS: Ht 162.6 cm; Wt 90.7 kg
--- NOTE | 2020-08-22 15:34 | Emergency Room Report ---
History of Present Illness General Chief Complaint: Gastrointestinal Illness Source: Patient Present Illness HPI 25-year-old female with past medical history of hepatitis B, previous alcohol dependence, obesity presents with abdominal distention, leg swelling, and shortness of breath x 2 weeks. Patient is currently awaiting follow-up with a GI specialist. Referral was sent from her primary care doctor 1 week ago. She states that she feels more short of breath than usual secondary to her abdominal distention and has not been able to get out of bed. She feels bloated and the bloating goes from the right upper quadrant/left upper quadrant all the way around to the bilateral flanks. Also endorses loose nonbloody stools. Denies fever, cough, chest pain, nausea, vomiting, phlegm, hematuria, dysuria, rash, headache, photophobia or any other symptoms. Denies trauma The patient's symptoms were acute on chronic onset, severity was moderate, duration since 14 days. Quality: Distended Past medical history: Previous alcohol dependence, hepatitis C Past surgical history: Denies Smoking: Denies Alcohol use: Previous heavy alcohol use Drug use: Denies Review of systems: CONST: No fevers or chills, No night sweats PULMONARY: No productive cough, ++ shortness of breath CARDIAC: No chest pain, No palpitations GI: No vomiting, ++ diarrhea , No melena_or_BRBPR : No dysuria, No hematuria, No discharge NEURO: No new_focal_weakness_or_numbness, No confusion, No vision changes 14 point Review of Systems is otherwise negative except per HPI Physical Exam: GENERAL: Awake_alert_ nontoxic, no acute distress Spo2 denies 100% on RA -normal EYES: ++ Scleral icterus Extraocular muscles are intact. Conjunctivae clear. Lids without swelling. ENT: External nose and ear normal_in_appearance. Oropharynx clear. Head_atraumatic, Moist_oral_mucosa NECK: No JVD. No meningismus. No thyromegaly. Supple. Trachea midline RESP: Normal respiratory effort. Symmetric rise. No stridor. Clear_to_auscultation_No_rales_No_wheezes CARDIAC: Tachycardic rate and regular rhytm. No_significant pedal edema. ABDOMEN: Soft. ++distended. ++ Ascites, ++ fluid wave. Negative murphys sign/rosving/obturator_No_rebound_or_guarding. MSK: Normal muscle tone, without rigidity. Extremities without asymmetric deformity or swelling. SKIN: ++Mild jaundice. Warm and dry. No visible cyanosis or pallor. NEUROLOGIC: Alert, oriented x3. Motor_and_sensation_grossly_intact. No truncal ataxia. Gait_normal Psych: Normal mood and affect, normal judgment and insight - COORDINATION OF CARE Case was discussed with: Patient , Patient's Physician Any labs and imaging that were ordered were interpreted as part of the medical decision making: Medical Decision Making/Plan: Differential diagnosis includes cholecystitis, choledocholithiasis, hepatitis, small bowel obstruction, volvulus, AAA, pancreatitis, atypical appendicitis, gastroparesis, gastritis, peptic ulcer disease, among others. Patient is well appearing with stable vital signs. Abdominal exam is non pe ritoneal with no guarding or rebound. Labs show liver failure, worsening thrombocytopenia, stable anemia, and evidence for urinary tract infection. Due to diffuse anasarca and history of heavy drinking, BNP was ordered and found to be elevated. Cannot rule out diastolic heart failure at this time given her drinking history and symptoms of orthopnea and lower extremity edema. She has no echocardiogram on file. EKG shows T wave inversions in the lateral leads. Troponin was negative x1. Chest x-ray showed mildly elevated cardiac silhouette. No pleural effusions. CT scan of the abdomen pelvis demonstrates nodular liver phlebotomy services representative of early cirrhosis, cholelithiasis, nonspecific pericholecystic fluid, ascites, splenomegaly, small nonobstructing left renal stone without hydronephrosis, colitis. Chest x-ray shows diffuse interstitial opacities consistent with pulmonary vascular congestion. ED intervention included Lasix diuresis. Rocephin was given for broad-spectrum coverage for UTI. The patient denies any bloody stool and has no pain out of proportion to exam, and no significant risk factors for mesenteric ischemia such as atrial fibrillation or severe PAD/PVD (peripheral arterial / vascular disease), thus definitive workup to rule out mesenteric ischemia was not pursued. Patient is afebrile, without any significant tenderness in the RUQ, and a negative [place] sign. The patients presentation does not appear to be consistent with acute cholecystitis and thus definitive imaging to rule it out was not pursued. The patient has no significant risk factors for AAA (abdominal aortic aneurysm) such as age over 50 with history of hypertension, connective tissue disorder, or 1st degree relative with AAA. the patient has normal dorsalis pedis pulses, no radiation of pain to the back, and no pulsatile mass felt on exam. The patients profile was overall low risk for AAA and definitive workup was not pursued. The patients symptoms are not consistent with ACS (acute coronary syndrome), symptoms are not exertional, EKG without obvious ischemic change. I spoke with Dr. Nolan, and reviewed the patients presentation, workup, resul ts, and treatment. They will admit the patient for further care and evaluation, and assume care of the patient at this time. Allergies: Coded Allergies: No Known Allergies (Unverified , 08/22/20) COVID-19 Screening Contact w/high risk pt: No Experienced COVID-19 symptoms?: No COVID-19 Testing performed PACKAGING MANAGER: No Patient History Last Menstrual Period: 08/15/20 Now: No Nursing Documentation-PMH Past Medical History: No History, Except For Hx Gastrointestinal Problems: Yes - hep B Hx Neurological Problems: Yes - migraine Physical Exam Vital Signs Date Time Temp Pulse Resp B/P (MAP) Pulse Ox O2 Delivery O2 Flow Rate FiO2 08/22/20 14:51 97.9 114 18 127/62 (83) 100 Room Air Sp02 EP Interpretation: reviewed, normal Medical Decision Making Diagnostic Impression: Primary Impression: Anasarca Additional Impressions: Hepatitis B Anemia Peripheral edema UTI (urinary tract infection) Pleural effusion Alcohol dependence Cirrhosis Thrombocytopenia Pleural effusion, right Cholelithiasis Splenomegaly Colitis EKG Diagnostic Results Troponin ordered: Yes When was troponin ordered?: Aug 22, 2020 DEBORAH Scribe Text 12-lead EKG (interpreted by me) Time: 1604 Indication: Rhythm analysis Tracing visualized and Interpreted by me. Rhythm: Tachycardia Rate: 112 bpm QTc: 464 Morphology: No_significant_ST_elevations_or_depressions, No STEMI Impression: Sinus tachycardia, fusion complexes, T wave inversion in lead V4, V5, V6 Rhythm Strip Diag. Results Rhythm Strip Time: 15:34 EP Interpretation: yes Rate: 99 Rhythm: NSR, no PVC's, no ectopy Chest X-Ray Diagnostic Results Chest X-Ray Diagnostic Results : PA Scribe Text Chest X-Ray: Views: [ 1 ] view(s) Indication: Shortness of breath Findings: Cardiomegaly, interstitial edema, mediastinum normal. No infiltrate. Impression: Cardiomegaly, interstitial edema The X-ray(s) were independently viewed and interpreted contemporaneously Electronically signed by Honey beach DO CT/MRI/US Diagnostic Results CT/MRI/US Diagnostic Results : Impression CT Abdomen and Pelvis Without Intravenous Contrast FINDINGS: Lung bases: Mild dependent atelectasis bilaterally. Pleural space: Small right pleural effusion. Mediastinum: Mild prominence of the wall of the distal esophagus may represent esophagitis. ABDOMEN: Liver: Nodular contour of the liver could represent early cirrhosis changes. Gallbladder and bile ducts: Cholelithiasis. Nonspecific prominence of the gallbladder wall and pericholecystic fluid. Further evaluation could be performed with ultrasound if clinically indicated. Pancreas: Unremarkable. No ductal dilation. Spleen: Mild splenomegaly. Adrenals: Unremarkable. No mass. Kidneys and ureters: Small nonobstructing left renal stone. No hydronephrosis or ureteral stone. Stomach and bowel: Prominence of the lo of the colon may be secondary to underdistention. Colitis is not excluded. Evaluation of the stomach is limited by under distention. PELVIS: Appendix: Normal appendix. Bladder: Mild prominence of the bladder wall may be secondary to underdistention. Please correlate with urinalysis if concerned for cystitis. No stones. Reproductive: Unremarkable as visualized. ABDOMEN and PELVIS: Intraperitoneal space: Large amount of ascites. No free air. Bones/joints: No acute fracture. No dislocation. Soft tissues: Anasarca. Small fat-containing umbilical hernia. Vasculature: Unremarkable. No abdominal aortic aneurysm. Lymph nodes: Unremarkable. No enlarged lymph nodes. IMPRESSION: 1. Small right pleural effusion. 2. Mild prominence of the wall of the distal esophagus may represent esophagitis. 3. Cholelithiasis. Nonspecific prominence of the gallbladder wall and pericholecystic fluid. Further evaluation could be performed with ultrasound if clinically indicated. 4. Small nonobstructing left renal stone. No hydronephrosis or ureteral stone. 5. Nodular contour of the liver could represent early cirrhosis changes. 6. Mild splenomegaly. 7. Large amount of ascites. 8. Anasarca. 9. Prominence of the lo of the colon may be secondary to underdistention. Colitis is not excluded. 10. Mild prominence of the bladder wall may be secondary to underdistention. Please correlate with urinalysis if concerned for cystitis. Dictated By: Mesha Mercedes MD Reevaluation Time: 16:34 Last Vital Signs Date Time Temp Pulse Resp B/P (MAP) Pulse Ox O2 Delivery O2 Flow Rate FiO2 08/22/20 14:51 97.9 114 18 127/62 (83) 100 Room Air Status: improved Disposition: ADMITTED INPATIENT Admit Decision Time: 16:34 Condition: Stable Referrals: [facility],REFERRING (PCP) Honey Schaeffer D.O. Aug 22, 2020 15:34
--- NOTE | 2020-08-22 15:48 | NUR ---
Patient presented to the ER with c/o abdominal distention and bloating. She also reports SOB and recent diagnosis of Hepatitis B. Her bi-lat eyes are yellow tinted. She reports that she is currently awaiting a GI consult.
[2020-08-22 15:57] LABS: BASOPHILS % (AUTO) 1.9 % (0.0-2.0); EOSINOPHILS % (AUTO) 2.8 % (0.0-3.0); HEMATOCRIT 27.8 % (37.0-47.0); HEMOGLOBIN 9.1 G/DL (12.0-16.0); LYMPHOCYTES % (AUTO) 29.7 % (20.0-45.0); MEAN CORPUSCULAR VOLUME 102 FL (80-99); MONOCYTES % (AUTO) 12.4 % (1.0-10.0); NEUTROPHILS % (AUTO) 53.2 % (45.0-75.0); PLATELET COUNT 100 K/UL (150-450); RED BLOOD COUNT 2.74 M/UL (4.20-5.40); RED CELL DISTRIBUTION WIDTH 16.8 % (11.6-14.8); WHITE BLOOD COUNT 8.3 K/UL (4.8-10.8)
[2020-08-22 16:03] LABS: APPEARANCE,URINE SLIGHTLY CLOUDY; BILIRUBIN, URINE 3+ (NEGATIVE); GLUCOSE, URINE (UA) NEGATIVE (NEGATIVE); KETONES,URINE 1+ (NEGATIVE); LEUKOCYTE ESTERASE ,URINE 1+ (NEGATIVE); NITRITE,URINE POSITIVE (NEGATIVE); PH,URINE 5 (4.5-8.0); PROTEIN,URINE 2+ (NEGATIVE); UROBILINOGEN,URINE 8 MG/DL (0.0-1.0)
[2020-08-22 16:06] LABS: COLOR,URINE AMBER
[2020-08-22 16:10] LABS: ANION GAP 7 mmol/L (5-15); BLOOD UREA NITROGEN 8 mg/dL (7-18); CALCIUM 7.4 MG/DL (8.5-10.1); CARBON DIOXIDE 22 MMOL/L (21-32); CHLORIDE 107 MMOL/L (98-107); CREATININE 0.8 MG/DL (0.55-1.30); POTASSIUM 3.6 MMOL/L (3.5-5.1); SODIUM 136 MMOL/L (136-145)
[2020-08-22 16:14] LABS: INR 2.7 (0.9-1.1)
[2020-08-22] MEDS ORDERED: cefTRIAXone 1 GM in NS 55 ML IVPB ONE (16:15)
[2020-08-22 16:22] LABS: ALANINE AMINOTRANSFERASE 231 U/L (12-78); ALBUMIN 1.1 G/DL (3.4-5.0); ALBUMIN/GLOBULIN RATIO 0.1 (1.0-2.7); ALKALINE PHOSPHATASE 266 U/L (46-116); ASPARTATE AMINO TRANSFERASE 625 U/L (15-37); BILIRUBIN,TOTAL 7.7 MG/DL (0.2-1.0)
[2020-08-22 16:28] LABS: BILIRUBIN,DIRECT 5.7 MG/DL (0.0-0.3)
--- NOTE | 2020-08-22 17:02 | Diagnostic Imaging Report ---
EXAM: XR Chest, 1 View CLINICAL HISTORY: SOB TECHNIQUE: Frontal view of the chest. COMPARISON: None FINDINGS: Hardware: None. Lungs/pleura: Diffuse interstitial opacities. No focal consolidation. No pleural effusion or pneumothorax. Heart/mediastinum: Borderline size of the heart. Soft tissues: Unremarkable. Bones: No acute fracture. Upper abdomen: Normal. IMPRESSION: Diffuse interstitial opacities may be related to technique versus pulmonary vasculature congestion.
--- NOTE | 2020-08-22 17:22 | NUR ---
assisting primary RN with pt. IV placed, labs sent. pt medicated. 1720: repeat lactic drawn, 2nd set of cultures drawn. pt vitals updated. pt on monitor. VSS. pt denies pain. will continue to monitor.
[2020-08-22 17:23] VITALS: BP 120/49
--- NOTE | 2020-08-22 17:24 | Diagnostic Imaging Report ---
EXAM: CT Abdomen and Pelvis Without Intravenous Contrast CLINICAL HISTORY: ABD PAIN TECHNIQUE: Axial computed tomography images of the abdomen and pelvis without intravenous contrast. CTDI is 17.4 mGy and DLP is 937.8 mGy-cm. One or more of the following dose reduction techniques were used: automated exposure control, adjustment of the mA and/or kV according to patient size, use of iterative reconstruction technique. COMPARISON: CT abdomen/pelvis on 02/13/2020 FINDINGS: Lung bases: Mild dependent atelectasis bilaterally. Pleural space: Small right pleural effusion. Mediastinum: Mild prominence of the wall of the distal esophagus may represent esophagitis. ABDOMEN: Liver: Nodular contour of the liver could represent early cirrhosis changes. Gallbladder and bile ducts: Cholelithiasis. Nonspecific prominence of the gallbladder wall and pericholecystic fluid. Further evaluation could be performed with ultrasound if clinically indicated. Pancreas: Unremarkable. No ductal dilation. Spleen: Mild splenomegaly. Adrenals: Unremarkable. No mass. Kidneys and ureters: Small nonobstructing left renal stone. No hydronephrosis or ureteral stone. Stomach and bowel: Prominence of the lo of the colon may be secondary to underdistention. Colitis is not excluded. Evaluation of the stomach is limited by under distention. PELVIS: Appendix: Normal appendix. Bladder: Mild prominence of the bladder wall may be secondary to underdistention. Please correlate with urinalysis if concerned for cystitis. No stones. Reproductive: Unremarkable as visualized. ABDOMEN and PELVIS: Intraperitoneal space: Large amount of ascites. No free air. Bones/joints: No acute fracture. No dislocation. Soft tissues: Anasarca. Small fat-containing umbilical hernia. Vasculature: Unremarkable. No abdominal aortic aneurysm. Lymph nodes: Unremarkable. No enlarged lymph nodes. IMPRESSION: 1. Small right pleural effusion. 2. Mild prominence of the wall of the distal esophagus may represent esophagitis. 3. Cholelithiasis. Nonspecific prominence of the gallbladder wall and pericholecystic fluid. Further evaluation could be performed with ultrasound if clinically indicated. 4. Small nonobstructing left renal stone. No hydronephrosis or ureteral stone. 5. Nodular contour of the liver could represent early cirrhosis changes. 6. Mild splenomegaly. 7. Large amount of ascites. 8. Anasarca. 9. Prominence of the lo of the colon may be secondary to underdistention. Colitis is not excluded. 10. Mild prominence of the bladder wall may be secondary to underdistention. Please correlate with urinalysis if concerned for cystitis.
[2020-08-22 17:51] VITALS: BP 130/53
--- NOTE | 2020-08-22 19:10 | NUR ---
ED Nurse Note: Received report from offgoing nurse PORTIA Medrano. Patient is AOX4, calm and cooperative. Denies any discomfort at this time. NBP 114/64, HR 59, RR 19, O2 Sat 100% on room air,denies any pain.
--- NOTE | 2020-08-22 19:30 | NUR ---
covid19 antigen test specimen taken to lab, registered in lab book.
--- NOTE | 2020-08-22 20:00 | NUR ---
NURSE NOTES: received report from PORTIA Montero from ER. awaiting pt arrival on unit.
--- NOTE | 2020-08-22 20:07 | NUR ---
Report given to PORTIA Suazo on 4th floor.
--- NOTE | 2020-08-22 20:20 | NUR ---
Patient tranported to [phone] via anette christiansen.
[2020-08-22 20:25] VITALS: BP 140/66
--- NOTE | 2020-08-22 20:25 | NUR ---
TRANSFER TO FLOOR: Patient transferred to [facility] as ordered, per dr. Schaeffer. Report given to PORTIA Suazo. Belongings given to patient, list given to nurse Gabriele.
--- NOTE | 2020-08-22 20:25 | NUR ---
NURSE NOTES: pt arrived on unit. no acute distress noted, no co pain at the moment, just uncomfortable from the ascites and anasarca. Pt denies SOB at the moment. Vital signs are stable although pt is running tachy at 115. pt states she is nervous being here in the hospital. belongings recorded. no home medications brought. pt oriented to unit and to room. call light in reach, bed in lowest position, side rails up bed locked. Will call Dr. Nolan for admission orders.
[2020-08-22] MEDS ORDERED: LORazepam Inj 2mg/ml 1ml IV PRN (21:45)
[2020-08-22] MEDS ORDERED: Varibar Pudding 230ml MC PRN (22:00)
[2020-08-22] MEDS ORDERED: Varibar Nectar 240ml MC PRN (22:00)
[2020-08-22] MEDS ORDERED: Varibar Honey 250ml MC PRN (22:00)
[2020-08-22] MEDS ORDERED: Varibar Thin Liquid powder 148gm MC PRN (22:00)
[2020-08-23 00:09] VITALS: BP 103/54
--- NOTE | 2020-08-23 00:10 | NUR ---
NURSE NOTES: pt running tachy with heart rate at 109. Other vital signs are stable. pt with no acute s/s of distress and no co pain at the moment. Dr. Nolan notified of tachycardia. Instructed by Dr. Nolan to give ice chips to pt and to contact Dr. Cunningham for overnight tachycardia.
[2020-08-23 04:00] VITALS: BP 130/73
--- NOTE | 2020-08-23 04:15 | NUR ---
NURSE NOTES: pt pulse rate at 113. EKG done in ER shows sinus tachycardia as well. Dr. Nolan notified earlier of tachycardia, consult made to Dr. Cunningham for cardiovascular management. pt is not symtomatic, she is asleep in bed at the moment. no acute distress observed. no co pain, no co sob and difficulty breathing. other vital signs are stable and she is 100% on room air. will endorse sinus tachy to day shift nurse and to follow up with the
--- NOTE | 2020-08-23 06:29 | NUR ---
NURSE HAND-OFF: Important Events on Shift:new admit, safety, sinus tachycardia Patient Status: stable Diet: NPO Pending Orders: NA Pending Results/Labs:NA Pending MD notification: multiple physician consultations made Latest Vital Signs: Temperature 97.9 , Pulse 113 , B/P 130 /73 , Respiratory Rate 18 , O2 SAT 100 , Room Air, O2 Flow Rate . Vital Sign Comment: sinus tachy 109 to 113 throughout shift. pt in no acute distress, asymptomatic, other vital signs within normal limits, 100% on room air. Latest Marx Fall Score: 0 Fall Risk: Low Risk Safety Measures: Call light Within Reach, Bed Alarm , Side Rails Side Rails x2, Bed position Low and Locked. Fall Precautions: Patient Fall Education Report will be given to PORTIA Batista.
--- NOTE | 2020-08-23 07:18 | General Progress Note ---
Subjective ROS Limited/Unobtainable: Yes Allergies: Coded Allergies: No Known Allergies (Unverified , 08/22/20) Objective Last 24 Hour Vital Signs Date Time Temp Pulse Resp B/P (MAP) Pulse Ox O2 Delivery O2 Flow Rate FiO2 08/23/20 04:00 97.9 113 18 130/73 (92) 100 08/23/20 00:09 97.9 109 18 103/54 (70) 98 08/22/20 21:55 Room Air 08/22/20 20:25 98.4 110 18 140/66 (90) 100 08/22/20 17:51 75 16 130/53 100 08/22/20 17:23 98.6 105 18 120/49 100 Room Air 08/22/20 15:44 Room Air 08/22/20 15:44 08/22/20 14:51 97.9 114 18 127/62 (83) 100 Room Air Intake and Output 08/22/20 08/23/20 19:00 07:00 Intake Total 150 ml Balance 150 ml Intake IV Total 150 ml Laboratory Tests 08/22/20 15:13: Urine Color [place], Urine Appearance Slightly cloudy, Urine pH 5, Urine Specific [place] 1.020, Urine Protein 2+H, Urine Glucose (UA) Negative, Urine Ketones 1+H , Urine Blood 5+H, Urine Nitrite PositiveH, Urine Bilirubin 3+H, Urine Ictotest Positive, Urine Urobilinogen 8H, Urine Leukocyte Esterase 1+H, Urine RBC 2-4H, Urine WBC 0-2, Urine Squamous Epithelial Cells ModerateH, Urine Bacteria ModerateH, Urine HCG, Qualitative Negative 08/22/20 15:26: White Blood Count 8.3, Red Blood Count 2.74L, Hemoglobin 9.1L, Hematocrit 27.8L, Mean Corpuscular Volume 102H, Mean Corpuscular Hemoglobin 33.2H, Mean Corpuscular Hemoglobin Concent 32.6, Red Cell Distribution Width 16.8H, Platelet Count 100L, Mean Platelet Volume 9.8, Neutrophils (%) (Auto) 53.2, Lymphocytes (%) (Auto) 29.7, Monocytes (%) (Auto) 12.4H, Eosinophils (%) (Auto) 2.8, Basophils (%) (Auto) 1.9, Prothrombin Time 27.2H, Prothromb Time International Ratio 2.7H, Sodium Level 136, Potassium Level 3.6, Chloride Level 107, Carbon Dioxide Level 22, Anion Gap 7, Blood Urea Nitrogen 8, Creatinine 0.8, Estimat Glomerular Filtration Rate > 60, Glucose Level 113H, Lactic Acid Level 2.10H, Calcium Level 7.4L, Total Bilirubin 7.7H, Direct Bilirubin 5.7H, Aspartate Amino Transf (AST/SGOT) 625H, Alanine Aminotransferase (ALT/SGPT) 231H, Alkaline Phosphatase 266H, Troponin I 0.023, Pro-B-Type Natriuretic Peptide 241H, Total Protein 9.0H, Albumin 1.1L, Globulin 7.9, Albumin/Globulin Ratio 0.1L, Lipase 314 08/22/20 17:16: Lactic Acid Level 1.40 08/23/20 06:20: White Blood Count [Pending], Red Blood Count [Pending], Hemoglobin [Pending], Hematocrit [Pending], Mean Corpuscular Volume [Pending], Mean Corpuscular Hemo globin [Pending], Mean Corpuscular Hemoglobin Concent [Pending], Red Cell Distribution Width [Pending], Platelet Count [Pending], Mean Platelet Volume [Pending], Neutrophils (%) (Auto) [Pending], Lymphocytes (%) (Auto) [Pending], Monocytes (%) (Auto) [Pending], Eosinophils (%) (Auto) [Pending], Basophils (%) (Auto) [Pending], Sodium Level [Pending], Potassium Level [Pending], Chloride Level [Pending], Carbon Dioxide Level [Pending], Blood Urea Nitrogen [Pending], Creatinine [Pending], Estimat Glomerular Filtration Rate [Pending], Glucose Level [Pending], Calcium Level [Pending], Total Bilirubin [Pending], Aspartate Amino Transf (AST/SGOT) [Pending], Alanine Aminotransferase (ALT/SGPT) [Pending], Alkaline Phosphatase [Pending], Total Protein [Pending], Albumin [Pending], Globulin [Pending] Height (Feet): 5 Height (Inches): 4.00 Weight (Pounds): 200 General Appearance: no apparent distress EENT: scleral icterus Neck: supple Cardiovascular: normal rate Respiratory/Chest: decreased breath sounds Abdomen: normal bowel sounds, non tender, soft Extremities: non-tender Assessment/Plan Assessment/Plan: hep B cirrhosis ascites gallstones paracentesis AFP albumin diuretics tomorrow has out patient hepatology fu Faraz Fernandez MD Aug 23, 2020 07:18
[2020-08-23 07:22] LABS: BASOPHILS % (AUTO) 1.5 % (0.0-2.0); EOSINOPHILS % (AUTO) 1.7 % (0.0-3.0); HEMATOCRIT 29.5 % (37.0-47.0); HEMOGLOBIN 9.5 G/DL (12.0-16.0); LYMPHOCYTES % (AUTO) 34.1 % (20.0-45.0); MEAN CORPUSCULAR VOLUME 103 FL (80-99); MONOCYTES % (AUTO) 11.1 % (1.0-10.0); NEUTROPHILS % (AUTO) 51.6 % (45.0-75.0); PLATELET COUNT 102 K/UL (150-450); RED BLOOD COUNT 2.87 M/UL (4.20-5.40); RED CELL DISTRIBUTION WIDTH 16.8 % (11.6-14.8); WHITE BLOOD COUNT 8.2 K/UL (4.8-10.8)
--- NOTE | 2020-08-23 07:45 | NUR ---
NURSE NOTES: Pt lying in bed w/bed in lowest position and call light within reach. Pt A&Ox4, VSS, and in no apparent distress. IV site intact/asymptomatic; skin intact w/abdomen distension noted. Will continue to monitor.
[2020-08-23 07:47] LABS: ALANINE AMINOTRANSFERASE 212 U/L (12-78); ALBUMIN/GLOBULIN RATIO 0.1 (1.0-2.7); ALKALINE PHOSPHATASE 255 U/L (46-116); ANION GAP 5 mmol/L (5-15); ASPARTATE AMINO TRANSFERASE 617 U/L (15-37); BILIRUBIN,TOTAL 7.1 MG/DL (0.2-1.0); BLOOD UREA NITROGEN 9 mg/dL (7-18); CALCIUM 7.3 MG/DL (8.5-10.1); CARBON DIOXIDE 24 MMOL/L (21-32); CHLORIDE 109 MMOL/L (98-107); CREATININE 0.8 MG/DL (0.55-1.30); POTASSIUM 3.2 MMOL/L (3.5-5.1); SODIUM 138 MMOL/L (136-145)
[2020-08-23 07:48] LABS: BILIRUBIN,DIRECT 5.4 MG/DL (0.0-0.3)
[2020-08-23 08:00] VITALS: BP 103/51
[2020-08-23 08:18] LABS: FERRITIN 91 NG/ML (8-388); GAMMA GLUTAMYL TRANSPEPTIDASE 57 U/L (5-85); PHOSPHORUS 3.4 MG/DL (2.5-4.9)
[2020-08-23 08:30] LABS: % IRON SATURATION 78 % (15-50); IRON 157 ug/dL (50-175); TOTAL IRON BINDING CAPACITY 201 ug/dL (250-450)
--- NOTE | 2020-08-23 08:54 | Consultation ---
Consult Note Consult Note I am asked to evaluate the patient at the request of Dr. Mei for fluid and electrolyte management 25-year-old female with past medical history of hepatitis B, previous alcohol dependence, obesity presents with abdominal distention, leg swelling, and shortness of breath x 2 weeks. Patient is currently awaiting follow-up with a GI specialist. Referral was sent from her primary care doctor 1 week ago. She states that she feels more short of breath than usual secondary to her abdominal distention and has not been able to get out of bed. She feels bloated and the bloating goes from the right upper quadrant/left upper quadrant all the way around to the bilateral flanks. Also endorses loose nonbloody stools. Denies fever, cough, chest pain, nausea, vomiting, phlegm, hematuria, dysuria, rash, headache, photophobia or any other symptoms. Denies trauma The patient's symptoms were acute on chronic onset, severity was moderate, duration since 14 days. Quality: Distended Past medical history: Previous alcohol dependence, hepatitis C Past surgical history: Denies Smoking: Denies Alcohol use: Previous heavy alcohol use Drug use: Denies PHYSICAL EXAMINATION: VITAL SIGNS: Temperature 98.3, pulse 113, blood pressure 103/51. GENERAL APPEARANCE: No acute distress. HEAD AND NECK: She has icterus in the sclerae. HEART: Tachycardic. LUNGS: Clear. ABDOMEN: Soft, distended with ascites. EXTREMITIES: Edema of legs. NEUROLOGIC: Awake, alert, oriented x3. LABORATORY AND DIAGNOSTIC DATA: Sodium 138, potassium 3.2, chloride 109, bicarb 24, BUN 9, creatinine 0.8, glucose 55. Lactic acid at the time of admission was 2.1. Total bilirubin 7.1, direct bilirubin 5.4, AST 670, ALT 212, alkaline phosphatase 255. WBC 8.2, hemoglobin 9.2, hematocrit 29.5, platelets 102. UA showed moderate bacteria, WBCs 0 to 2, nitrite was positive. Urine culture so far negative. COVID test negative. CT scan of the abdomen and pelvis showed prominence of the wall of distal esophagus, may have esophagitis, cholelithiasis, nonobstructive left renal stone, nodular liver, likely early cirrhosis, splenomegaly, large amount of ascites, anasarca, mild prominence of bladder wall. . Assessment/Plan Electrolyte imbalance Cirrhosis of the liver, ascites Hepatitis B Previous alcohol dependent Gallstones Anemia Suggestions: Potassium supplement Anemia work-up Monitor electrolytes paracentesis AFP albumin diuretics tomorrow has out patient hepatology fu Sidney Norman MD Aug 23, 2020 08:54
[2020-08-23] MEDS ORDERED: Phytonadione 1 MG in D5W 55 ML IVPB ONE (09:00)
[2020-08-23] MEDS ORDERED: Sodium Chloride for KCL Premix x 2hrs IV SCH (09:15)
--- NOTE | 2020-08-23 09:30 | NUR ---
NURSE NOTES: Pt would like to have Dr. Zapata go over paracentesis before she signs consent; awaiting MD call back. Will continue to monitor.
[2020-08-23 12:00] VITALS: BP 117/53
[2020-08-23 12:09] LABS: INR 3.2 (0.9-1.1)
--- NOTE | 2020-08-23 12:15 | NUR ---
NURSE NOTES: Notified Dr. Cunningham of pt's elevated HR; no new orders given. Will continue to monitor.
--- NOTE | 2020-08-23 12:54 | Consultation ---
Consult Note Consult Note DATE OF CONSULTATION: 08/23/2020 CONSULTING PHYSICIAN: Ramon Parry MD. ATTENDING PHYSICIAN: Dr. Nolan REASON FOR CONSULTATION: Respiratory distress, pleural effusion HISTORY OF PRESENT ILLNESS: This is a 25-year-old female with past medical history of hepatitis B, previous alcohol dependence, and obesity, who presented to the ED for evaluation of abdominal distention, leg edema, and shortness of breath x2 weeks. Patient reports she started having yellowing of her eyes in January 2020. She was seen by her primary care physician who recommended her to be evaluated in the ER and she was diagnosed with hepatitis B. She denies IV drug use, or any family member who has hepatitis B. She reports having an appointment with her GI specialist on 08/28/2020 as an outpatient. She reports she started having abdominal distention and bloating for 2 weeks. She denies loose stools, fever, chest pain, nausea, vomiting, hematuria, dysuria, rash, or any other symptoms. Abdomen/pelvis CT showed early cirrhosis, cholelithiasis, nonspecific pericholecystic fluid, ascites, splenomegaly, small nonobstructing left renal stone without hydronephrosis, and colitis.Chest x-ray was notable for diffuse interstitial opacities consistent with pulmonary vascular congestion. She tested negative for COVID-19 in the ER. Urinalysis findings are consistent with UTI. Patient was given broad-spectrum antibiotics. Patient is now admitted to the hospital for further management. PAST MEDICAL HISTORY: Hepatitis B, history of alcohol dependence, obesity MEDICATIONS: Hydroxyzine, sumatriptan ALLERGIES: No known allergies FAMILY HISTORY: Noncontributory PERSONAL/SOCIAL HISTORY: Denies IV drug use REVIEW OF SYSTEMS: Negative except mentioned in HPI PHYSICAL EXAMINATION: VITAL SIGNS: Blood pressure 117/53, heart rate 121, respiratory rate 18, weight 90 kg, height 163 cm. General: Patient laying in bed comfortably, NAD on room air HEENT: Scleral icterus, EOMs intact. Lids without swelling. No JVD, CHEST AND LUNGS: Reveals clear, normal, symmetrical breath sounds with no adventitious sounds. CARDIOVASCULAR: Reveals normal S1, S2 without murmurs, rubs, or clicks. ABDOMEN: Morbid obesity, distended, positive fluid wave, negative Olvera sign RECTAL: Deferred. MUSCULOSKELETAL: There is no tenderness to palpation. Range of motion is normal. NEUROLOGICAL: Alert and oriented x3 , nonfocal LABORATORY DATA: Laboratory testing shows hemoglobin 9.5, hematocrit 29.5, platelet count 102. Chemistries show potassium 3.2, chloride 109, uric acid 2.0, total bilirubin 7.1 Assessment/Plan 1. DVT ppx - with tachycardia and leg edema -We will order D-dimer and venous duplex of legs 2. Hyperbilirubinemia, GI following 3. Elevated LFTs, GI following 4. Hypoalbuminemia -Albumin replaced 5. UTI -Follow-up UCx negative - s/p broad spectrum Abx 6. Respiratory distress on arrival -Now saturating well on room air -Monitor for hypoxia and provide supplemental oxygen as needed 7. Small pleural effusion -Monitor effusions for now given normoxemia -We will consider thoracentesis if effusion increases in size 8. Cirrhosis of the liver, ascites -GI following -Scheduled for paracentesis -Outpatient GI follow-up on 08/28/2020 per patient 9. Cholelithiasis, GI following 10. Anemia -On IV iron The care for this patient was discussed with my supervising physician. Time spent for this case was approximately 31 minutes. Harpal Mares Aug 23, 2020 12:54
--- NOTE | 2020-08-23 13:43 | Cardiac Electrophysiology PN ---
Subjective Subjective [id number] Objective Last 24 Hour Vital Signs Date Time Temp Pulse Resp B/P (MAP) Pulse Ox O2 Delivery O2 Flow Rate FiO2 08/23/20 12:00 98.2 121 18 117/53 (74) 96 08/23/20 08:00 98.3 117 18 103/51 (68) 97 08/23/20 04:00 97.9 113 18 130/73 (92) 100 08/23/20 00:09 97.9 109 18 103/54 (70) 98 08/22/20 21:55 Room Air 08/22/20 20:25 98.4 110 18 140/66 (90) 100 08/22/20 17:51 75 16 130/53 100 08/22/20 17:23 98.6 105 18 120/49 100 Room Air 08/22/20 15:44 Room Air 08/22/20 15:44 08/22/20 14:51 97.9 114 18 127/62 (83) 100 Room Air Intake and Output 08/22/20 08/23/20 19:00 07:00 Intake Total 150 ml Balance 150 ml Intake IV Total 150 ml Laboratory Tests Test 08/22/20 15:13 08/22/20 15:26 08/22/20 17:16 08/23/20 06:20 Urine Color Raine Urine Appearance Slightly cloudy Urine pH 5 (4.5-8.0) Urine Specific [place] 1.020 (1.005-1.035) Urine Protein 2+ (NEGATIVE) H Urine Glucose (UA) Negative (NEGATIVE) Urine Ketones 1+ (NEGATIVE) H Urine Blood 5+ (NEGATIVE) H Urine Nitrite Positive (NEGATIVE) H Urine Bilirubin 3+ (NEGATIVE) H Urine Ictotest Positive (NEGATIVE) Urine Urobilinogen 8 MG/DL (0.0-1.0) H Urine Leukocyte Esterase 1+ (NEGATIVE) H Urine RBC 2-4 /HPF (0 - 2) H Urine WBC 0-2 /HPF (0 - 2) Urine Squamous Epithelial Cells Moderate /LPF (NONE/OCC) H Urine Bacteria Moderate /HPF (NONE) H Urine HCG, Qualitative Negative (NEGATIVE) White Blood Count 8.3 K/UL (4.8-10.8) 8.2 K/UL (4.8-10.8) Red Blood Count 2.74 M/UL (4.20-5.40) L 2.87 M/UL (4.20-5.40) L Hemoglobin 9.1 G/DL (12.0-16.0) L 9.5 G/DL (12.0-16.0) L Hematocrit 27.8 % (37.0-47.0) L 29.5 % (37.0-47.0) L Mean Corpuscular Volume 102 FL (80-99) H 103 FL (80-99) H Mean Corpuscular Hemoglobin 33.2 PG (27.0-31.0) H 33.0 PG (27.0-31.0) H Mean Corpuscular Hemoglobin Concent 32.6 G/DL (32.0-36.0) 32.2 G/DL (32.0-36.0) Red Cell Distribution Width 16.8 % (11.6-14.8) H 16.8 % (11.6-14.8) H Platelet Count 100 K/UL (150-450) L 102 K/UL (150-450) L Mean Platelet Volume 9.8 FL (6.5-10.1) 9.1 FL (6.5-10.1) Neutrophils (%) (Auto) 53.2 % (45.0-75.0) 51.6 % (45.0-75.0) Lymphocytes (%) (Auto) 29.7 % (20.0-45.0) 34.1 % (20.0-45.0) Monocytes (%) (Auto) 12.4 % (1.0-10.0) H 11.1 % (1.0-10.0) H Eosinophils (%) (Auto) 2.8 % (0.0-3.0) 1.7 % (0.0-3.0) Basophils (%) (Auto) 1.9 % (0.0-2.0) 1.5 % (0.0-2.0) Prothrombin Time 27.2 SEC (9.30-11.50) H Prothromb Time International Ratio 2.7 (0.9-1.1) H Sodium Level 136 MMOL/L (136-145) 138 MMOL/L (136-145) Potassium Level 3.6 MMOL/L (3.5-5.1) 3.2 MMOL/L (3.5-5.1) L Chloride Level 107 MMOL/L (98-107) 109 MMOL/L (98-107) H Carbon Dioxide Level 22 MMOL/L (21-32) 24 MMOL/L (21-32) Anion Gap 7 mmol/L (5-15) 5 mmol/L (5-15) Blood Urea Nitrogen 8 mg/dL (7-18) 9 mg/dL (7-18) Creatinine 0.8 MG/DL (0.55-1.30) 0.8 MG/DL (0.55-1.30) Estimat Glomerular Filtration Rate > 60 mL/min (>60) > 60 mL/min (>60) Glucose Level 113 MG/DL (74-106) H 55 MG/DL (74-106) L Lactic Acid Level 2.10 mmol/L (0.4-2.0) H 1.40 mmol/L (0.66-2.22) Calcium Level 7.4 MG/DL (8.5-10.1) L 7.3 MG/DL (8.5-10.1) L Total Bilirubin 7.7 MG/DL (0.2-1.0) H 7.1 MG/DL (0.2-1.0) H Direct Bilirubin 5.7 MG/DL (0.0-0.3) H 5.4 MG/DL (0.0-0.3) H Aspartate Amino Transf (AST/SGOT) 625 U/L (15-37) H 617 U/L (15-37) H Alanine Aminotransferase (ALT/SGPT) 231 U/L (12-78) H 212 U/L (12-78) H Alkaline Phosphatase 266 U/L (46-116) H 255 U/L (46-116) H Troponin I 0.023 ng/mL (0.000-0.056) Pro-B-Type Natriuretic Peptide 241 pg/mL (0-125) H Total Protein 9.0 G/DL (6.4-8.2) H 8.9 G/DL (6.4-8.2) H Albumin 1.1 G/DL (3.4-5.0) L 1.0 G/DL (3.4-5.0) L Globulin 7.9 g/dL 7.9 g/dL Albumin/Globulin Ratio 0.1 (1.0-2.7) L 0.1 (1.0-2.7) L Lipase 314 U/L (73-393) Uric Acid 2.0 MG/DL (2.6-7.2) L Phosphorus Level 3.4 MG/DL (2.5-4.9) Magnesium Level 1.8 MG/DL (1.8-2.4) Iron Level 157 ug/dL (50-175) Total Iron Binding Capacity 201 ug/dL (250-450) L Percent Iron Saturation 78 % (15-50) H Unsaturated Iron Binding 44 ug/dL (112-346) L Ferritin 91 NG/ML (8-388) Gamma Glutamyl Transpeptidase 57 U/L (5-85) Vitamin B12 Level 1967 PG/ML (193-986) H Folate 14.6 NG/ML (8.6-58.9) Test 08/23/20 11:30 Prothrombin Time 32.6 SEC (9.30-11.50) H Prothromb Time International Ratio 3.2 (0.9-1.1) H D-Dimer 11.61 mg/L FEU (0.00-0.49) H Microbiology Date/Time Source Procedure Growth Status 08/22/20 19:30 Nasopharynx SARS-CoV-2 Antigen (Rapid)(LAURO) - Final Complete 08/22/20 15:13 Urine,Clean Catch Urine Culture - Preliminary NO GROWTH Resulted Benjamin Cunningham MD Aug 23, 2020 13:43
--- NOTE | 2020-08-23 15:51 | NUR ---
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 98.6 HR 105 RR 18 B/P 120/49 AST 625 ALT 231 ALK PHOS 266 UA+ NITRITES, LEUKOCYTES ESTERASE,BLOOD, KETONES IS: IV BOLUS NS X 1 LITER ROCEPHIN IV ADMITTED TO MED/SURG @ 2019 MED/SURG STATUS DCP RETURN HOME
[2020-08-23 16:00] VITALS: BP 116/53
--- NOTE | 2020-08-23 18:34 | NUR ---
Speech Pathology Note (Bedside Dysphagia Evaluation) Brief Note: Ms. Glover is a 25 year old female admitted for jaundice and distended abdomen in setting of liver cirrhosis. CBC: 8.2/9.5/29.5/102 LFT ALT/AST: 212/617, TB7.1, DB 5.4, VSS: Physicians order reviewed, preparing for paracentesis noted. CT A/P reviewed noted. CXR reviewed noted. GI on case. Findings: Ms. Glover stated, " I am hungry." Speech clear and voice intact. She was able to self drink and self feed jello, cranberry juice without dysphagia. Interpretation: 1. Functional swallow Plan: 1. Regular diet and thin liquid I will sign off from service at this time. Zuri Jackson
--- NOTE | 2020-08-23 19:30 | NUR ---
NURSE NOTES: Patient awake in bed, alert and oriented x4, on room air, no complaint at this time. IV access on the right AC and left wrist. Instructed to use call light for assistance. Bed in lowest and lock engaged. Will continue to monitor.
[2020-08-23 20:00] VITALS: BP 117/53
--- NOTE | 2020-08-23 20:29 | NUR ---
NURSE HAND-OFF: Important Events on Shift: Paracentesis not done; endorsed to give FFP 1 hr before paracentesis (per Dr. Alaniz). Patient Status: Stable Diet: NPO Pending Orders: paracentesis, VD Pending Results/Labs: None Pending MD notification: None Latest Vital Signs: Temperature 99.7 , Pulse 123 , B/P 116 /53 , Respiratory Rate 18 , O2 SAT 99 , Room Air, O2 Flow Rate Vital Sign Comment: tachycardic Latest Marx Fall Score: 0 Fall Risk: Low Risk Safety Measures: Call light Within Reach, Bed Alarm , Side Rails Side Rails x2, Bed position Low and Locked. Fall Precautions: Patient Fall Education Report given to PORTIA Crowley.
[2020-08-23] MEDS: Iron Sucrose 100 MG in NS 55 ML IVPB SCH (20:41)
--- NOTE | 2020-08-23 20:44 | Consultation ---
DATE OF CONSULTATION: 08/23/2020 INFECTIOUS DISEASES CONSULTATION CONSULTING PHYSICIAN: Elijah Resendiz MD PRIMARY ATTENDING PHYSICIAN: Norris Nolan MD REASON FOR CONSULTATION: Hepatitis B, cirrhosis. HISTORY OF PRESENT ILLNESS: A 25-year-old female was admitted yesterday from home complaining of abdominal distention, leg swelling, shortness of breath for 2 weeks. The patient was diagnosed with hepatitis B and cirrhosis, was supposed to see a cloth shrinker, has loose nonbloody stools. PAST MEDICAL HISTORY: Alcohol dependence, cirrhosis, anemia, hepatitis B. ALLERGIES: No known drug allergies. MEDICATIONS: Iron sucrose, Protonix, Zofran, got a dose of ceftriaxone in the ER. SOCIAL HISTORY: Single, has two children. Quit alcohol one year ago. Denies drug abuse or smoking. REVIEW OF SYSTEMS: She has history of present illness. Denies any fever or chills. No coughing. No nausea. No vomiting. No dysuria. PHYSICAL EXAMINATION: VITAL SIGNS: Temperature 98.3, pulse 113, blood pressure 103/51. GENERAL APPEARANCE: No acute distress. HEAD AND NECK: She has icterus in the sclerae. HEART: Tachycardic. LUNGS: Clear. ABDOMEN: Soft, distended with ascites. EXTREMITIES: Edema of legs. NEUROLOGIC: Awake, alert, oriented x3. LABORATORY AND DIAGNOSTIC DATA: Sodium 138, potassium 3.2, chloride 109, bicarb 24, BUN 9, creatinine 0.8, glucose 55. Lactic acid at the time of admission was 2.1. Total bilirubin 7.1, direct bilirubin 5.4, AST 670, ALT 212, alkaline phosphatase 255. WBC 8.2, hemoglobin 9.2, hematocrit 29.5, platelets 102. UA showed moderate bacteria, WBCs 0 to 2, nitrite was positive. Urine culture so far negative. COVID test negative. CT scan of the abdomen and pelvis showed prominence of the wall of distal esophagus, may have esophagitis, cholelithiasis, nonobstructive left renal stone, nodular liver, likely early cirrhosis, splenomegaly, large amount of ascites, anasarca, mild prominence of bladder wall. IMPRESSION: Cirrhosis of liver, hepatitis B, anemia, thrombocytopenia, acidosis at the time of admission. So far urine culture is negative. RECOMMENDATION: Observe off antibiotic. The patient is waiting for thoracentesis. At the end of my exam, I thank Dr. Nolan for involving me in the care of this patient. Elijah Resendiz M.D. DR: [place] JOB#: [id number] CC: HIRA
--- NOTE | 2020-08-23 20:44 | Consultation ---
DATE OF CONSULTATION: 08/23/2020 CARDIOLOGY CONSULTATION CONSULTING PHYSICIAN: Benjamin Cunningham M.D. REFERRING PHYSICIAN: Norris Nolan M.D. REASON FOR CONSULTATION: Shortness of breath. HISTORY OF PRESENT ILLNESS: The patient is a 25-year-old lady with history of hepatitis B as well as history of alcohol dependence in the past and obesity who presented to the emergency room for abdominal distention and leg edema and shortness of breath of two weeks' duration. The patient also noticed yellowishness of the eyes since January 2020 that was evaluated by her primary care doctor and diagnosed with hepatitis B. The patient has history of IV drug use. The patient has an appointment with her GI specialist as an outpatient; however, started having abdominal distention and bloating and came to the emergency room for further evaluation. The patient's abdomen and pelvis CT scan showed early cirrhosis and cholelithiasis. Chest x-ray showed pulmonary vascular congestion and tested negative for COVID. The patient also was found to have urinary tract infection and was also started on broad-spectrum IV antibiotic. REVIEW OF SYSTEMS: Negative other than what was mentioned in history of present illness. PAST MEDICAL HISTORY: Hepatitis B and history of alcohol dependence, but she quit about a year ago. MEDICATIONS: Per reconciliation. ALLERGIES: She has no known drug allergies. SOCIAL HISTORY: Denies any drug use, but she has a history of heavy alcohol use in the past. PHYSICAL EXAMINATION: VITAL SIGNS: Blood pressure of 117/53, pulse is 120, respirations 18, temperature 98.2. HEAD AND NECK: No JVD, but she has jaundiced sclerae. LUNGS: Clear. CARDIOVASCULAR: Regular S1 and S2 with no gallop. ABDOMEN: Distended with ascites. EXTREMITIES: 1+ pitting edema. LABORATORY DATA: Labs show white count of 8.2, hemoglobin 9.5, hematocrit 29.5, platelet count 102. Sodium is 138, potassium 3.2, BUN of 9, creatinine 0.8, and glucose of 55. Lactic acid 2.2. BNP was 241. Her alkaline phosphatase is 255, ALT is 212, AST is 617, bilirubin is 7.1, direct bilirubin of 5.4. Urinalysis showed 3+ bilirubin and positive nitrites. ASSESSMENT AND PLAN: 1. Shortness of breath due to volume overload. The patient has cirrhosis of the liver. Her INR is 3.2. D-dimer is 11.6. We will get an echocardiogram to evaluate for ejection fraction and wall motion abnormality to make sure the patient has not developed alcoholic cardiomyopathy lower extremity edema. Start the patient on Lasix 40 mg IV b.i.d. and replace the potassium. It is 3.2. Add Aldactone to her medical regimen as well. 2. Cirrhosis of the liver with ascites and with the INR, the patient received FFP and albumin and vitamin K, will be undergoing paracentesis. 3. History of hepatitis B and alcoholism. Further evaluation by Dr. Zapata. 4. Gallstones. Thank you very much for allowing me to participate in the care of this patient. Please do not hesitate to contact me for any questions regarding my evaluation. Sincerely, Benjamin Cunningham M.D. DR: DOREEN JOB#: [id number] CC:
--- NOTE | 2020-08-23 21:50 | NUR ---
NURSE NOTES: Patient complained of pain on left wrist IV access. IV removed.
[2020-08-24] VITALS: BP 124/75
--- NOTE | 2020-08-24 | NUR ---
NURSE NOTES: Patient's IV patent and with blood backflow. Patient didn't let RN to insert another IV access. Addendum: 08/25/20 at 0448 by RADHA VASQUEZ RN This note is for 08/24/20 2100
--- NOTE | 2020-08-24 03:14 | History and Physical Report ---
DATE OF ADMISSION: 08/22/2020 HISTORY OF PRESENT ILLNESS: The patient basically has alcohol abuse and came in with uncomfortable feeling of distended abdomen and also has hepatitis B since January 2020. The patient initially had tachycardia and also has been admitted for ascites, distended abdomen, dyspnea on exertion, anasarca, orthopnea, fulminant liver failure, right pleural effusion, and coagulopathy as well as UTI, rule out cirrhosis of the liver, and is admitted for ascites for possible paracentesis. The patient says feels uncomfortable with the abdomen; however, no vomiting. No hematemesis. No nausea. Does have shortness of breath and dyspnea on exertion, but no coughing. No headache. PAST MEDICAL HISTORY: History of alcohol abuse, history of migraine headaches, hepatitis B. PAST SURGICAL HISTORY: None known. SOCIAL HISTORY: She has history of smoking, history of marijuana use, history of alcohol abuse. FAMILY HISTORY: Noncontributory. MEDICATIONS: None. REVIEW OF SYSTEMS: HEENT: Denies headaches. RESPIRATORY: Reports shortness of breath and dyspnea on exertion. Denies cough. CARDIOVASCULAR: Denies chest pain. No orthopnea. GASTROINTESTINAL: Denies nausea, vomiting, or diarrhea. EXTREMITIES: Denies pain in lower extremities. CENTRAL NERVOUS SYSTEM: Denies change in speech pattern. GASTROINTESTINAL: She has abdominal distention and abdominal discomfort for about two weeks. MEDICATIONS: None. PHYSICAL EXAMINATION: VITAL SIGNS: Temperature 97.9, pulse is 109, blood pressure is 103/54. HEENT: PERRLA. NECK: Supple. No lymphadenopathy. CHEST: Clear to auscultation. CARDIOVASCULAR: Regular rate and rhythm. No murmurs or extra sounds. ABDOMEN: Distended. Positive bowel sounds. No rebound. Abdomen is soft. EXTREMITIES: No edema. Moves all four extremities. NEUROLOGIC: Reflexes equal on both sides. Able to move all. No focal neurological deficits. LABORATORY DATA: WBC of 8.3, hemoglobin of 9.1, platelets of 100. Sodium is 138, potassium 3.2, BUN of 9, creatinine of 0.8, glucose of 65. AST of 617, ALT of 212, alkaline phosphatase of 255, total bilirubin of 7.1. ASSESSMENT AND PLAN: Jaundice, liver failure, coagulopathy, UTI, pleural effusion on the x-ray, coagulopathy, INR 1.7, rule out cirrhosis and ascites. I have basically consulted Dr. Benavides, Dr. Zapata, Dr. Ramon Parry, Dr. Cunningham, Dr. Hdez, Dr. Richard Alaniz, Dr. Morel, Dr. Elijah Resendiz to rule out bacterial infection and also for the management of possible cirrhosis as well as for the management of the UTI and coagulopathy. Also rule out any alcohol withdrawal seizures or delirium tremens to help with the management of that. Norris Nolan M.D. DR: Destiny JOB#: [id number] CC:
[2020-08-24 04:00] VITALS: BP 129/74
--- NOTE | 2020-08-24 06:40 | General Progress Note ---
Subjective ROS Limited/Unobtainable: Yes Allergies: Coded Allergies: No Known Allergies (Unverified , 08/22/20) Objective Last 24 Hour Vital Signs Date Time Temp Pulse Resp B/P (MAP) Pulse Ox O2 Delivery O2 Flow Rate FiO2 08/24/20 04:00 98.8 93 18 129/74 (92) 95 08/24/20 00:00 98.4 90 18 124/75 (91) 96 08/23/20 21:00 Room Air 08/23/20 20:00 98.8 120 18 117/53 (74) 99 08/23/20 16:00 99.7 123 18 116/53 (74) 99 08/23/20 12:00 98.2 121 18 117/53 (74) 96 08/23/20 09:00 Room Air 08/23/20 08:00 98.3 117 18 103/51 (68) 97 Intake and Output 08/23/20 08/24/20 19:00 07:00 Intake Total 60 ml Balance 60 ml Intake IV Total 60 ml Laboratory Tests 08/23/20 11:30: Prothrombin Time 32.6H, Prothromb Time International Ratio 3.2H, D-Dimer 11.61H 08/24/20 05:20: Prothrombin Time [Pending], Prothromb Time International Ratio [Pending], Activated Partial Thromboplast Time [Pending], Ammonia [Pending], Pro-B-Type Natriuretic Peptide [Pending], Alpha Fetoprotein [Pending], Hepatitis A IgM Antibody [Pending], Hepatitis B Surface Antigen [Pending], Hepatitis B Core IgM Antibody [Pending], Hepatitis C Antibody [Pending] Height (Feet): 5 Height (Inches): 4.00 Weight (Pounds): 200 General Appearance: alert EENT: normal ENT inspection, scleral icterus Neck: supple Cardiovascular: normal peripheral pulses Respiratory/Chest: decreased breath sounds Abdomen: hypoactive bowel sounds Extremities: non-tender Assessment/Plan Assessment/Plan: hep B cirrhosis ascites gallstones coagulopathy MELD score 27 paracentesis, pending AFP albumin diuretic ( lasix 40 mg iv and aldactone 100 mg po) has out patient hepatology fu needs transplant evaluation and hep B treatment vit k given Faraz Zapata MD Aug 24, 2020 06:40
--- NOTE | 2020-08-24 06:47 | Consultation ---
History of Present Illness General Chief Complaint: Gastrointestinal Illness Present Illness Allergies: Coded Allergies: No Known Allergies (Unverified , 08/22/20) Medication History Scheduled Hydroxyzine Pamoate* (Vistaril*), 50 MG ORAL EVERY 6 HOURS Nitrofurantoin Monohyd/M-Cryst (Nitrofurantoin [place]-Mcr 100 mg), 100 MG ORAL Q12H Riboflavin (Riboflavin), 400 MG PO DAILY Sumatriptan Succinate* (Imitrex*), 50 MG ORAL DAILY PRN MIGRAINE Patient History Healthcare decision maker Resuscitation status Advanced Directive on File Physical Exam Last 24 Hour Vital Signs Date Time Temp Pulse Resp B/P (MAP) Pulse Ox O2 Delivery O2 Flow Rate FiO2 08/24/20 04:00 98.8 93 18 129/74 (92) 95 08/24/20 00:00 98.4 90 18 124/75 (91) 96 08/23/20 21:00 Room Air 08/23/20 20:00 98.8 120 18 117/53 (74) 99 08/23/20 16:00 99.7 123 18 116/53 (74) 99 08/23/20 12:00 98.2 121 18 117/53 (74) 96 08/23/20 09:00 Room Air 08/23/20 08:00 98.3 117 18 103/51 (68) 97 Intake and Output 08/23/20 08/24/20 19:00 07:00 Intake Total 60 ml Balance 60 ml Intake IV Total 60 ml Laboratory Tests Test 08/23/20 11:30 08/24/20 05:20 Prothrombin Time 32.6 SEC (9.30-11.50) H Pending Prothromb Time International Ratio 3.2 (0.9-1.1) H Pending D-Dimer 11.61 mg/L FEU (0.00-0.49) H Activated Partial Thromboplast Time Pending Ammonia Pending Pro-B-Type Natriuretic Peptide Pending Alpha Fetoprotein Pending Hepatitis A IgM Antibody Pending Hepatitis B Surface Antigen Pending Hepatitis B Core IgM Antibody Pending Hepatitis C Antibody Pending Height (Feet): 5 Height (Inches): 4.00 Weight (Pounds): 200 Medications Current Medications Medications (Trade) Dose Ordered Sig/Emily Route PRN Reason Start Time Stop Time Status Last Admin Dose Admin Acetaminophen (Tylenol) 325 mg Q6H PRN ORAL Mild Pain (Pain Scale 1-3) 08/23/20 16:15 09/22/20 16:14 08/23/20 17:08 Albumin Human 100 ml @ 100 mls/hr ONCE IV 08/24/20 07:00 08/24/20 09:00 Barium Sulfate (Varibar Honey) 250 ml NOW PRN MC RAD 08/22/20 22:00 08/25/20 21:53 Barium Sulfate (Varibar [place]) 240 ml NOW PRN MC RAD 08/22/20 22:00 08/25/20 21:53 Barium Sulfate (Varibar Pudding) 230 ml NOW PRN MC RAD 08/22/20 22:00 08/25/20 21:53 Barium Sulfate (Varibar Thin Liquid powder) 148 gm NOW PRN MC RAD 08/22/20 22:00 08/25/20 21:53 Furosemide (Lasix) 40 mg DAILY IV 08/24/20 06:45 09/23/20 06:44 Iron Sucrose 100 mg/Sodium Chloride 60 ml @ 240 mls/hr BEDTIME IVPB 08/23/20 21:00 08/27/20 21:14 08/23/20 20:41 Lorazepam (Ativan 2mg/ml 1ml) 1 mg Q2H PRN IV delerium tremens/seizure 08/22/20 21:45 08/29/20 21:44 Ondansetron HCl (Zofran) 4 mg Q6H PRN IVP Nausea & Vomiting 08/22/20 21:45 09/21/20 21:44 Pantoprazole (Protonix) 40 mg DAILY ORAL 08/23/20 09:00 09/22/20 08:59 08/23/20 09:31 Potassium Chloride (K-Dur) 40 meq TWICE A DAY ORAL 08/24/20 09:00 11/21/20 17:59 Spironolactone (Aldactone) 100 mg DAILY ORAL 08/24/20 06:45 09/23/20 06:44 Assessment/Plan Assessment/Plan: Hematology Consultation ATTENDING PHYSICIAN: Dr. Nolan REASON FOR CONSULTATION: Respiratory distress, pleural effusion DOS: 08/24/2020 HISTORY OF PRESENT ILLNESS: This is a 25-year-old female with past medical history of hepatitis B, previous alcohol dependence, and obesity, who presented to the ED for evaluation of abdominal distention, leg edema, and shortness of breath x2 weeks. Patient reports she started having yellowing of her eyes in January 2020. She was seen by her primary care physician who recommended her to be evaluated in the ER and she was diagnosed with hepatitis B. She denies IV drug use, or any family member who has hepatitis B. She reports having an appointment with her GI specialist on 08/28/2020 as an outpatient. She reports she started having abdominal distention and bloating for 2 weeks. She denies loose stools, fever, chest pain, nausea, vomiting, hematuria, dysuria, rash, or any other symptoms. Abdomen/pelvis CT showed early cirrhosis, cholelithiasis, nonspecific pericholecystic fluid, ascites, splenomegaly, small nonobstructing left renal stone without hydronephrosis, and colitis.Chest x-ray was notable for diffuse interstitial opacities consistent with pulmonary vascular congestion. She tested negative for COVID-19 in the ER. Urinalysis findings are consistent with UTI. Patient was given broad-spectrum antibiotics. Patient is now admitted to the hospital for further management. PAST MEDICAL HISTORY: Hepatitis B, history of alcohol dependence, obesity MEDICATIONS: Hydroxyzine, sumatriptan ALLERGIES: No known allergies FAMILY HISTORY: Noncontributory PERSONAL/SOCIAL HISTORY: Denies IV drug use REVIEW OF SYSTEMS: Negative except mentioned in HPI PHYSICAL EXAMINATION: VITAL SIGNS: Blood pressure 117/53, heart rate 121, respiratory rate 18, weight 90 kg, height 163 cm. General: Patient laying in bed comfortably, NAD on room air HEENT: Scleral icterus, EOMs intact. Lids without swelling. No JVD, CHEST AND LUNGS: Reveals clear, normal, symmetrical breath sounds with no a dventitious sounds. CARDIOVASCULAR: Reveals normal S1, S2 without murmurs, rubs, or clicks. ABDOMEN: Morbid obesity, distended, positive fluid wave, negative Olvera sign RECTAL: Deferred. MUSCULOSKELETAL: There is no tenderness to palpation. Range of motion is normal. NEUROLOGICAL: Alert and oriented x3 , nonfocal LABORATORY DATA: hemoglobin 9.5, hematocrit 29.5, platelet count 102. Chemistries show potassium 3.2, chloride 109, uric acid 2.0, total bilirubin 7.1 Assessment/Plan # Pancytopenia is related to hx of alcohol use and early cirrhosis --> imaging has been noted --> get para as needed, abd distension --> inr correct with ffp and vit k --> outpatient liver specialist recommended and dw her --> ALSO started on iv iron # Coagulopathy due to liver disease --> ffp and vit k correct her inr --> transfuse prn # Hyperbilirubinemia, GI following # Elevated LFTs, GI following # Hypoalbuminemia # UTI # Respiratory distress on arrival # Small pleural effusion # Cirrhosis of the liver, ascites # Cholelithiasis, GI following Appreciate consultation and dw Richard Mattson MD Aug 24, 2020 06:47
[2020-08-24] MEDS: Spironolactone 50mg tab ORAL SCH ×2 (06:59→08:20)
--- NOTE | 2020-08-24 07:45 | NUR ---
NURSE NOTES: Patient awake in bed, alert and oriented x4, on room air, breathing even and unlabored. no acute distress noted. Denied any pain at this time. Pt on NPO due to US paracentesis today, pt aware. IV intact and patent. Bed in lowest and lock engaged. Call light within reach. Will continue to monitor.
[2020-08-24 08:00] VITALS: BP 110/58
--- NOTE | 2020-08-24 08:05 | NUR ---
NURSE HAND-OFF: Important Events on Shift: diuretics Patient Status: Diet: npo Pending Orders: Pending Results/Labs: Pending MD notification: Latest Vital Signs: Temperature 98.8 , Pulse 93 , B/P 129 /74 , Respiratory Rate 18 , O2 SAT 95 , Room Air, O2 Flow Rate . Vital Sign Comment: Latest Marx Fall Score: 0 Fall Risk: Low Risk Safety Measures: Call light Within Reach, Bed Alarm , Side Rails Side Rails x2, Bed position Low and Locked. Fall Precautions: Patient Fall Education Report given to PORTIA Gutierrez.
--- NOTE | 2020-08-24 08:36 | Consultation ---
History of Present Illness General Date patient seen: Aug 24, 2020 Chief Complaint: Present Illness Allergies: Coded Allergies: No Known Allergies (Unverified , 08/22/20) Medication History Scheduled Hydroxyzine Pamoate* (Vistaril*), 50 MG ORAL EVERY 6 HOURS Nitrofurantoin Monohyd/M-Cryst (Nitrofurantoin [place]-Mcr 100 mg), 100 MG ORAL Q12H Riboflavin (Riboflavin), 400 MG PO DAILY Sumatriptan Succinate* (Imitrex*), 50 MG ORAL DAILY PRN MIGRAINE Patient History Healthcare decision maker Resuscitation status Advanced Directive on File Physical Exam Last 24 Hour Vital Signs Date Time Temp Pulse Resp B/P (MAP) Pulse Ox O2 Delivery O2 Flow Rate FiO2 08/24/20 04:00 98.8 93 18 129/74 (92) 95 08/24/20 00:00 98.4 90 18 124/75 (91) 96 08/23/20 21:00 Room Air 08/23/20 20:00 98.8 120 18 117/53 (74) 99 08/23/20 16:00 99.7 123 18 116/53 (74) 99 08/23/20 12:00 98.2 121 18 117/53 (74) 96 08/23/20 09:00 Room Air Intake and Output 08/23/20 08/24/20 19:00 07:00 Intake Total 60 ml Balance 60 ml Intake IV Total 60 ml Laboratory Tests Test 08/23/20 11:30 08/24/20 05:20 Prothrombin Time 32.6 SEC (9.30-11.50) H 30.8 SEC (9.30-11.50) H Prothromb Time International Ratio 3.2 (0.9-1.1) H 3.0 (0.9-1.1) H D-Dimer 11.61 mg/L FEU (0.00-0.49) H Activated Partial Thromboplast Time 49 SEC (23-33) H Ammonia 23 umol/L (11-32) Pro-B-Type Natriuretic Peptide 465 pg/mL (0-125) H Alpha Fetoprotein Pending Hepatitis A IgM Antibody Pending Hepatitis B Surface Antigen Pending Hepatitis B Core IgM Antibody Pending Hepatitis C Antibody Pending Height (Feet): 5 Height (Inches): 4.00 Weight (Pounds): 200 Medications Current Medications Medications (Trade) Dose Ordered Sig/Emily Route PRN Reason Start Time Stop Time Status Last Admin Dose Admin Acetaminophen (Tylenol) 325 mg Q6H PRN ORAL Mild Pain (Pain Scale 1-3) 08/23/20 16:15 09/22/20 16:14 08/23/20 17:08 Albumin Human 100 ml @ 100 mls/hr ONCE IV 08/24/20 07:00 08/24/20 09:00 08/24/20 08:15 Barium Sulfate (Varibar Honey) 250 ml NOW PRN MC RAD 08/22/20 22:00 08/25/20 21:53 Barium Sulfate (Varibar [place]) 240 ml NOW PRN MC RAD 08/22/20 22:00 08/25/20 21:53 Barium Sulfate (Varibar Pudding) 230 ml NOW PRN MC RAD 08/22/20 22:00 08/25/20 21:53 Barium Sulfate (Varibar Thin Liquid powder) 148 gm NOW PRN MC RAD 08/22/20 22:00 08/25/20 21:53 Furosemide (Lasix) 40 mg DAILY IV 08/24/20 06:45 09/23/20 06:44 08/24/20 07:00 Iron Sucrose 100 mg/Sodium Chloride 60 ml @ 240 mls/hr BEDTIME IVPB 08/23/20 21:00 08/27/20 21:14 08/23/20 20:41 Lorazepam (Ativan 2mg/ml 1ml) 1 mg Q2H PRN IV delerium tremens/seizure 08/22/20 21:45 08/29/20 21:44 Ondansetron HCl (Zofran) 4 mg Q6H PRN IVP Nausea & Vomiting 08/22/20 21:45 09/21/20 21:44 Pantoprazole (Protonix) 40 mg DAILY ORAL 08/23/20 09:00 09/22/20 08:59 08/24/20 08:16 Potassium Chloride (K-Dur) 40 meq TWICE A DAY ORAL 08/24/20 09:00 11/21/20 17:59 08/24/20 08:16 Spironolactone (Aldactone) 100 mg DAILY ORAL 08/24/20 06:45 09/23/20 06:44 08/24/20 08:20 Assessment/Plan Assessment/Plan: (1) Abdominal pain (2) Liver cirrhosis seen dictated Artur Katz Aug 24, 2020 08:36
[2020-08-24] MEDS ORDERED: Spironolactone 50mg tab ORAL SCH (09:00)
--- NOTE | 2020-08-24 10:48 | Nephrology Progress Note ---
Assessment/Plan Problem List: (1) Electrolyte imbalance (2) Anasarca (3) Cirrhosis (4) Anemia (5) Cholelithiasis Assessment Electrolyte imbalance Cirrhosis of the liver, ascites Hepatitis B Previous alcohol dependent Gallstones Anemia Plan August 24: No labs drawn today. Stable from renal standpoint of view. paracentesis, pending Check AFP albumin infusion diuretic ( lasix 40 mg iv and aldactone 100 mg po) has out patient hepatology fu needs transplant evaluation and hep B treatment vit k given Subjective ROS Limited/Unobtainable: No Constitutional: Reports: malaise Objective Objective Last 24 Hour Vital Signs Date Time Temp Pulse Resp B/P (MAP) Pulse Ox O2 Delivery O2 Flow Rate FiO2 08/24/20 04:00 98.8 93 18 129/74 (92) 95 08/24/20 00:00 98.4 90 18 124/75 (91) 96 08/23/20 21:00 Room Air 08/23/20 20:00 98.8 120 18 117/53 (74) 99 08/23/20 16:00 99.7 123 18 116/53 (74) 99 08/23/20 12:00 98.2 121 18 117/53 (74) 96 Intake and Output 08/23/20 08/24/20 19:00 07:00 Intake Total 60 ml Balance 60 ml Intake IV Total 60 ml Current Medications Medications (Trade) Dose Ordered Sig/Emily Route PRN Reason Start Time Stop Time Status Last Admin Dose Admin Acetaminophen (Tylenol) 325 mg Q6H PRN ORAL Mild Pain (Pain Scale 1-3) 08/23/20 16:15 09/22/20 16:14 08/23/20 17:08 Barium Sulfate (Varibar Honey) 250 ml NOW PRN MC RAD 08/22/20 22:00 08/25/20 21:53 Barium Sulfate (Varibar [place]) 240 ml NOW PRN MC RAD 08/22/20 22:00 08/25/20 21:53 Barium Sulfate (Varibar Pudding) 230 ml NOW PRN MC RAD 08/22/20 22:00 08/25/20 21:53 Barium Sulfate (Varibar Thin Liquid powder) 148 gm NOW PRN MC RAD 08/22/20 22:00 08/25/20 21:53 Furosemide (Lasix) 40 mg DAILY IV 08/24/20 06:45 09/23/20 06:44 08/24/20 07:00 Iron Sucrose 100 mg/Sodium Chloride 60 ml @ 240 mls/hr BEDTIME IVPB 08/23/20 21:00 08/27/20 21:14 08/23/20 20:41 Lorazepam (Ativan 2mg/ml 1ml) 1 mg Q2H PRN IV delerium tremens/seizure 08/22/20 21:45 08/29/20 21:44 Ondansetron HCl (Zofran) 4 mg Q6H PRN IVP Nausea & Vomiting 08/22/20 21:45 09/21/20 21:44 Pantoprazole (Protonix) 40 mg DAILY ORAL 08/23/20 09:00 09/22/20 08:59 08/24/20 08:16 Potassium Chloride (K-Dur) 40 meq TWICE A DAY ORAL 08/24/20 09:00 11/21/20 17:59 08/24/20 08:16 Spironolactone (Aldactone) 100 mg DAILY ORAL 08/24/20 06:45 09/23/20 06:44 08/24/20 08:20 Laboratory Tests 08/23/20 11:30: Prothrombin Time 32.6H, Prothromb Time International Ratio 3.2H, D-Dimer 11.61H 08/24/20 05:20: Prothrombin Time 30.8H, Prothromb Time International Ratio 3.0H, Activated Partial Thromboplast Time 49H, Ammonia 23, Pro-B-Type Natriuretic Peptide 465H, Alpha Fetoprotein [Pending], Hepatitis A IgM Antibody [Pending], Hepatitis B Surface Antigen [Pending], Hepatitis B Core IgM Antibody [Pending], Hepatitis C Antibody [Pending] Height (Feet): 5 Height (Inches): 4.00 Weight (Pounds): 200 General Appearance: no apparent distress, lethargic Cardiovascular: tachycardia Respiratory/Chest: decreased breath sounds Abdomen: distended Sidney Morel MD Aug 24, 2020 10:48
--- NOTE | 2020-08-24 11:29 | Consultation ---
DATE OF CONSULTATION: 08/24/2020 PAIN MANAGEMENT CONSULTATION CONSULTING PHYSICIAN: Maral Hdez MD. REFERRING PHYSICIAN: Norris Nolan MD. PHYSICIAN ACCOUNT DEVELOPMENT EXECUTIVE: DEBORAH Saab. CHIEF COMPLAINT: Abdominal pain. HISTORY OF PRESENT ILLNESS: This is a 25-year-old female, who is being seen on the Med/Surg floor of [facility] for initial pain management consultation. The patient was admitted under the care of Dr. Nolan due to abdominal pain for the past two weeks. Abdominal pain that is acute, rating 8/10. Pain is the bloating pain, increased with eating and reduced with medication. The patient has a history of liver failure, hepatitis B, history of alcohol use, now is in bed and is comfortable. Reports that the pain is better, was started on Tylenol as needed. We were consulted so the patient would have adequate pain control while here in the hospital. PAST MEDICAL HISTORY: Migraine headaches, hepatitis B, liver failure, liver cirrhosis, ascites. PAST SURGICAL HISTORY: Denies. SOCIAL HISTORY: Denies smoking tobacco, history of drinking alcohol and denies IV drug abuse. ALLERGIES: No known drug allergies. MEDICATIONS: Denies taking medications as an outpatient. REVIEW OF SYSTEMS: Denies rash, fever, chills, sweating, dizziness, drowsiness, sore throat, or change in weight. No nausea, vomiting, diarrhea, or blood in the stool. No dysuria. PHYSICAL EXAMINATION: GENERAL: Alert, awake, and oriented. VITAL SIGNS: Blood pressure 129/74, heart rate 94, oxygen saturation is 95%, respirations 18, temperature 98 degrees Fahrenheit. HEENT: PERRLA. NECK: Range of motion is full in all directions. No tenderness to paracervical muscles. No adenopathy. LUNGS: Decreased breath sounds bilaterally. HEART: S1 and S2, regular. ABDOMEN: Tenderness to palpation. BACK: Range of motion is full in flexion and extension. EXTREMITIES: Upper and lower extremity range of motion is full in all direction. No cyanosis. No clubbing. Sensory is intact. Reflexes are not obtainable. No adenopathy. ASSESSMENT AND PLAN: This is a 25-year-old female with liver cirrhosis, abdominal pain. The patient will be continued on Tylenol as needed. The patient was discussed with Dr. Hdez and Dr. Hdez concurred. We will follow up with the patient. Thank you very much for the courtesy of this consultation. Maral Hdez M.D. DEBORAH Saab DR: KAREEM JOB#: [id number] CC:
[2020-08-24 12:00] VITALS: BP 105/46
--- NOTE | 2020-08-24 12:11 | NUR ---
RD ASSESSMENT & RECOMMENDATIONS SEE CARE ACTIVITY FOR COMPLETE ASSESSMENT DAILY ESTIMATED NEEDS: Needs based on liver 66kg abw 25-30 kcals/kg 7512-2964 total kcals 1-1.5 g protein/kg 66-99 g total protein Fluid per MD NUTRITION DIAGNOSIS: Decreased sodium and fat needs r/t cirrhosis as evidenced by elev T bili(7.1), elev LFT's, h/o ETOH abuse, w/ ascites, pending paracentesis. CURRENT DIET: NPO PO DIET RECOMMENDATIONS: Low Fat/ Low Na diet as tolerated ADDITIONAL RECOMMENDATIONS: 1) Obtain a standing wt post paracentesis 2) on lasix, replete lytes as needed (K 3.2) 3) rec bed side BG checks, noted low BG (55)
--- NOTE | 2020-08-24 12:26 | Cardiac Electrophysiology PN ---
Assessment/Plan Assessment/Plan 1. Shortness of breath due to volume overload. The patient has cirrhosis of the liver. Her INR is 3.2. D-dimer is 11.6. EF 75% On Lasix 40 mg IV b.i.d. and Aldactone 25 daily 2. Cirrhosis of the liver with ascites and with the INR, the patient received FFP and albumin and vitamin K, will be undergoing paracentesis. 3. History of hepatitis B and alcoholism. Further evaluation by Dr. Zapata. 4. Gallstones. Subjective Subjective IS SCHEDULED FOR PARACENTESIS TOMORROW. No CP Objective Last 24 Hour Vital Signs Date Time Temp Pulse Resp B/P (MAP) Pulse Ox O2 Delivery O2 Flow Rate FiO2 08/24/20 09:00 Room Air 08/24/20 08:00 97.7 114 18 110/58 (75) 100 08/24/20 04:00 98.8 93 18 129/74 (92) 95 08/24/20 00:00 98.4 90 18 124/75 (91) 96 08/23/20 21:00 Room Air 08/23/20 20:00 98.8 120 18 117/53 (74) 99 08/23/20 16:00 99.7 123 18 116/53 (74) 99 Intake and Output 08/23/20 08/24/20 19:00 07:00 Intake Total 60 ml Balance 60 ml Intake IV Total 60 ml Laboratory Tests Test 08/24/20 05:20 Prothrombin Time 30.8 SEC (9.30-11.50) H Prothromb Time International Ratio 3.0 (0.9-1.1) H Activated Partial Thromboplast Time 49 SEC (23-33) H Ammonia 23 umol/L (11-32) Pro-B-Type Natriuretic Peptide 465 pg/mL (0-125) H Alpha Fetoprotein Pending Hepatitis A IgM Antibody Pending Hepatitis B Surface Antigen Pending Hepatitis B Core IgM Antibody Pending Hepatitis C Antibody Pending Microbiology Date/Time Source Procedure Growth Status 08/22/20 19:30 Nasopharynx SARS-CoV-2 Antigen (Rapid)(LAURO) - Final Complete 08/22/20 17:16 Blood Blood Culture - Preliminary NO GROWTH AFTER 24 HOURS Resulted 08/22/20 15:26 Blood Blood Culture - Preliminary NO GROWTH AFTER 24 HOURS Resulted 08/22/20 15:13 Urine,Clean Catch Urine Culture - Final Mixed Urogenital Contaminants Complete Objective HEAD AND NECK: No JVD, but she has jaundiced sclerae. LUNGS: Clear. CARDIOVASCULAR: Regular S1 and S2 with no gallop. ABDOMEN: Distended with ascites. EXTREMITIES: 1+ pitting edema. Benjamin Cunningham MD Aug 24, 2020 12:26
--- NOTE | 2020-08-24 12:27 | Cardiac Electrophysiology PN ---
Assessment/Plan Assessment/Plan 1. Shortness of breath due to volume overload. The patient has cirrhosis of the liver. Her INR is 3.2. D-dimer is 11.6. EF 75% On Lasix 40 iv daily and Aldactone 100 daily 2. Cirrhosis of the liver with ascites and with the INR, the patient received FFP and albumin and vitamin K, will be undergoing paracentesis. 3. History of hepatitis B and alcoholism. Further evaluation by Dr. Zapata. 4. Gallstones. Subjective Subjective IS SCHEDULED FOR PARACENTESIS TOMORROW. No CP. On Lasix 40 iv daily and Aldactone 100 daily Objective Last 24 Hour Vital Signs Date Time Temp Pulse Resp B/P (MAP) Pulse Ox O2 Delivery O2 Flow Rate FiO2 08/24/20 09:00 Room Air 08/24/20 08:00 97.7 114 18 110/58 (75) 100 08/24/20 04:00 98.8 93 18 129/74 (92) 95 08/24/20 00:00 98.4 90 18 124/75 (91) 96 08/23/20 21:00 Room Air 08/23/20 20:00 98.8 120 18 117/53 (74) 99 08/23/20 16:00 99.7 123 18 116/53 (74) 99 Intake and Output 08/23/20 08/24/20 19:00 07:00 Intake Total 60 ml Balance 60 ml Intake IV Total 60 ml Laboratory Tests Test 08/24/20 05:20 Prothrombin Time 30.8 SEC (9.30-11.50) H Prothromb Time International Ratio 3.0 (0.9-1.1) H Activated Partial Thromboplast Time 49 SEC (23-33) H Ammonia 23 umol/L (11-32) Pro-B-Type Natriuretic Peptide 465 pg/mL (0-125) H Alpha Fetoprotein Pending Hepatitis A IgM Antibody Pending Hepatitis B Surface Antigen Pending Hepatitis B Core IgM Antibody Pending Hepatitis C Antibody Pending Microbiology Date/Time Source Procedure Growth Status 08/22/20 19:30 Nasopharynx SARS-CoV-2 Antigen (Rapid)(LAURO) - Final Complete 08/22/20 17:16 Blood Blood Culture - Preliminary NO GROWTH AFTER 24 HOURS Resulted 08/22/20 15:26 Blood Blood Culture - Preliminary NO GROWTH AFTER 24 HOURS Resulted 08/22/20 15:13 Urine,Clean Catch Urine Culture - Final Mixed Urogenital Contaminants Complete Objective HEAD AND NECK: No JVD, but she has jaundiced sclerae. LUNGS: Clear. CARDIOVASCULAR: Regular S1 and S2 with no gallop. ABDOMEN: Distended with ascites. EXTREMITIES: 1+ pitting edema. Benjamin Cunningham MD Aug 24, 2020 12:27
--- NOTE | 2020-08-24 12:32 | Pulmonology Progress Note ---
Subjective ROS Limited/Unobtainable: No Constitutional: Reports: no symptoms HEENT: Repors: no symptoms Respiratory: Reports: no symptoms Cardiovascular: Reports: no symptoms Gastrointestinal/Abdominal: Denies: diarrhea - resolved since 08/22; no recent use of Abx, constipation Allergies: Coded Allergies: No Known Allergies (Unverified , 08/22/20) Objective Last 24 Hour Vital Signs Date Time Temp Pulse Resp B/P (MAP) Pulse Ox O2 Delivery O2 Flow Rate FiO2 08/24/20 09:00 Room Air 08/24/20 08:00 97.7 114 18 110/58 (75) 100 08/24/20 04:00 98.8 93 18 129/74 (92) 95 08/24/20 00:00 98.4 90 18 124/75 (91) 96 08/23/20 21:00 Room Air 08/23/20 20:00 98.8 120 18 117/53 (74) 99 08/23/20 16:00 99.7 123 18 116/53 (74) 99 Intake and Output 08/23/20 08/24/20 19:00 07:00 Intake Total 60 ml Balance 60 ml Intake IV Total 60 ml General Appearance: no acute distress HEENT: atraumatic Respiratory: lungs clear Cardiovascular: normal rate Abdomen: distended, tender, other - striae Microbiology Date/Time Source Procedure Growth Status 08/22/20 19:30 Nasopharynx SARS-CoV-2 Antigen (Rapid)(LAURO) - Final Complete 08/22/20 17:16 Blood Blood Culture - Preliminary NO GROWTH AFTER 24 HOURS Resulted 08/22/20 15:26 Blood Blood Culture - Preliminary NO GROWTH AFTER 24 HOURS Resulted 08/22/20 15:13 Urine,Clean Catch Urine Culture - Final Mixed Urogenital Contaminants Complete Laboratory Tests 08/24/20 05:20: Prothrombin Time 30.8H, Prothromb Time International Ratio 3.0H, Activated Partial Thromboplast Time 49H, Ammonia 23, Pro-B-Type Natriuretic Peptide 465H, Alpha Fetoprotein [Pending], Hepatitis A IgM Antibody [Pending], Hepatitis B Surface Antigen [Pending], Hepatitis B Core IgM Antibody [Pending], Hepatitis C Antibody [Pending] Current Medications Medications (Trade) Dose Ordered Sig/Emily Route PRN Reason Start Time Stop Time Status Last Admin Dose Admin Acetaminophen (Tylenol) 325 mg Q6H PRN ORAL Mild Pain (Pain Scale 1-3) 08/23/20 16:15 09/22/20 16:14 08/23/20 17:08 Barium Sulfate (Varibar Honey) 250 ml NOW PRN MC RAD 08/22/20 22:00 08/25/20 21:53 Barium Sulfate (Varibar [place]) 240 ml NOW PRN MC RAD 08/22/20 22:00 08/25/20 21:53 Barium Sulfate (Varibar Pudding) 230 ml NOW PRN MC RAD 08/22/20 22:00 08/25/20 21:53 Barium Sulfate (Varibar Thin Liquid powder) 148 gm NOW PRN MC RAD 08/22/20 22:00 08/25/20 21:53 Furosemide (Lasix) 40 mg DAILY IV 08/24/20 06:45 09/23/20 06:44 08/24/20 07:00 Iron Sucrose 100 mg/Sodium Chloride 60 ml @ 240 mls/hr BEDTIME IVPB 08/23/20 21:00 08/27/20 21:14 08/23/20 20:41 Lorazepam (Ativan 2mg/ml 1ml) 1 mg Q2H PRN IV delerium tremens/seizure 08/22/20 21:45 08/29/20 21:44 Ondansetron HCl (Zofran) 4 mg Q6H PRN IVP Nausea & Vomiting 08/22/20 21:45 09/21/20 21:44 Pantoprazole (Protonix) 40 mg DAILY ORAL 08/23/20 09:00 09/22/20 08:59 08/24/20 08:16 Potassium Chloride (K-Dur) 40 meq TWICE A DAY ORAL 08/24/20 09:00 11/21/20 17:59 08/24/20 08:16 Spironolactone (Aldactone) 100 mg DAILY ORAL 08/24/20 06:45 09/23/20 06:44 08/24/20 08:20 Assessment/Plan Assessment/Plan 1. DVT ppx - with tachycardia and leg edema -Elevated D-dimer (08/23) - Venous duplex of legs (08/23) result pending -> SCD if V/D negative 2. Hyperbilirubinemia, GI following 3. Elevated LFTs, GI following 4. Hypoalbuminemia -Albumin replaced 5. UTI -Follow-up UCx negative - s/p broad spectrum Abx 6. Respiratory distress on arrival -Now saturating well on room air -Monitor for hypoxia and provide supplemental oxygen as needed 7. Small pleural effusion -Monitor effusions for now given normoxemia -We will consider thoracentesis if effusion increases in size 8. Cirrhosis of the liver, ascites -GI following -Scheduled for paracentesis (08/24) -Outpatient hepatology follow-up on 08/28/2020 per patient 9. Cholelithiasis, GI following 10. Anemia -On IV iron The care for this patient was discussed with my supervising physician. Time spent for this case was approximately 31 minutes. Harpal Mares Aug 24, 2020 12:32
--- NOTE | 2020-08-24 13:21 | Infectious Diseases Prog Note ---
Assessment/Plan Assessment/Plan IMPRESSION: Cirrhosis of liver, Hepatitis B, Anemia, Thrombocytopenia, Acidosis at the time of admission. RECOMMENDATION: Observe off antibiotic. Will have paracentesis. Will f/u hepatitis panel Subjective ROS Limited/Unobtainable: No Constitutional: Reports: no symptoms Respiratory: Reports: no symptoms Cardiovascular: Reports: no symptoms Gastrointestinal/Abdominal: Reports: no symptoms Genitourinary: Reports: no symptoms Allergies: Coded Allergies: No Known Allergies (Unverified , 08/22/20) Objective Last 24 Hour Vital Signs Date Time Temp Pulse Resp B/P (MAP) Pulse Ox O2 Delivery O2 Flow Rate FiO2 08/24/20 09:00 Room Air 08/24/20 08:00 97.7 114 18 110/58 (75) 100 08/24/20 04:00 98.8 93 18 129/74 (92) 95 08/24/20 00:00 98.4 90 18 124/75 (91) 96 08/23/20 21:00 Room Air 08/23/20 20:00 98.8 120 18 117/53 (74) 99 08/23/20 16:00 99.7 123 18 116/53 (74) 99 Height (Feet): 5 Height (Inches): 4.00 Weight (Pounds): 200 General Appearance: no acute distress HEENT: mucous membranes moist Respiratory/Chest: lungs clear Cardiovascular: normal rate Abdomen: soft, non tender, other - ascites Extremities: other - legs edema Neurologic/Psychiatric: alert, oriented x 3, responsive Microbiology Date/Time Source Procedure Growth Status 08/22/20 19:30 Nasopharynx SARS-CoV-2 Antigen (Rapid)(LAURO) - Final Complete 08/22/20 17:16 Blood Blood Culture - Preliminary NO GROWTH AFTER 24 HOURS Resulted 08/22/20 15:26 Blood Blood Culture - Preliminary NO GROWTH AFTER 24 HOURS Resulted 08/22/20 15:13 Urine,Clean Catch Urine Culture - Final Mixed Urogenital Contaminants Complete Laboratory Tests Test 08/24/20 05:20 Prothrombin Time 30.8 SEC (9.30-11.50) H Prothromb Time International Ratio 3.0 (0.9-1.1) H Activated Partial Thromboplast Time 49 SEC (23-33) H Ammonia 23 umol/L (11-32) Pro-B-Type Natriuretic Peptide 465 pg/mL (0-125) H Alpha Fetoprotein Pending Hepatitis A IgM Antibody Pending Hepatitis B Surface Antigen Pending Hepatitis B Core IgM Antibody Pending Hepatitis C Antibody Pending Current Medications Medications (Trade) Dose Ordered Sig/Emily Route PRN Reason Start Time Stop Time Status Last Admin Dose Admin Acetaminophen (Tylenol) 325 mg Q6H PRN ORAL Mild Pain (Pain Scale 1-3) 08/23/20 16:15 09/22/20 16:14 08/23/20 17:08 Barium Sulfate (Varibar Honey) 250 ml NOW PRN MC RAD 08/22/20 22:00 08/25/20 21:53 Barium Sulfate (Varibar [place]) 240 ml NOW PRN MC RAD 08/22/20 22:00 08/25/20 21:53 Barium Sulfate (Varibar Pudding) 230 ml NOW PRN MC RAD 08/22/20 22:00 08/25/20 21:53 Barium Sulfate (Varibar Thin Liquid powder) 148 gm NOW PRN MC RAD 08/22/20 22:00 08/25/20 21:53 Furosemide (Lasix) 40 mg DAILY IV 08/24/20 06:45 09/23/20 06:44 08/24/20 07:00 Iron Sucrose 100 mg/Sodium Chloride 60 ml @ 240 mls/hr BEDTIME IVPB 08/23/20 21:00 08/27/20 21:14 08/23/20 20:41 Lorazepam (Ativan 2mg/ml 1ml) 1 mg Q2H PRN IV delerium tremens/seizure 08/22/20 21:45 08/29/20 21:44 Ondansetron HCl (Zofran) 4 mg Q6H PRN IVP Nausea & Vomiting 08/22/20 21:45 09/21/20 21:44 Pantoprazole (Protonix) 40 mg DAILY ORAL 08/23/20 09:00 09/22/20 08:59 08/24/20 08:16 Potassium Chloride (K-Dur) 40 meq TWICE A DAY ORAL 08/24/20 09:00 11/21/20 17:59 08/24/20 08:16 Spironolactone (Aldactone) 100 mg DAILY ORAL 08/24/20 06:45 09/23/20 06:44 08/24/20 08:20 Elijah Resendiz MD Aug 24, 2020 13:21
--- NOTE | 2020-08-24 14:18 | Diagnostic Imaging Report ---
EXAM: ULTRASOUND Venous Duplex Scan Nolberto Leg CLINICAL HISTORY: Leg pain and edema. COMPARISON: None TECHNIQUE: Doppler examination include grayscale images obtained with and without compression, and color and spectral doppler analysis. FINDINGS: Doppler examination shows normal spontaneity, phasicity, compressibility in the bilateral lower extremities. There is no thrombus identified by grayscale. Normal color and spectral flow is identified. There is no evidence of valvular incompetency or insufficiency. IMPRESSION: UNREMARKABLE VENOUS DUPLEX.
--- NOTE | 2020-08-24 14:44 | NUR ---
NURSE NOTES: I received this patient from PORTIA Cavazos; patient awake, alert x4; on room air, no sing of distress and shortness of breath; no sing of chest pain; IV Right-Upper arm TKO; patient scheduled for US Paracentesis, patient consented for US paracentesis; side rails up x2, breaks engaged,bed at lowest position; call light within reach; will keep monitoring.
--- NOTE | 2020-08-24 14:50 | NUR ---
NURSE NOTES: Paracentesis will be done tomorrow, per Dr. Zapata, discontinue NPO now, start low sodium diet, NPO at midnight tomorrow. order carried out.
--- NOTE | 2020-08-24 15:07 | NUR ---
NURSE NOTES: Report given to PORTIA Rubin.
--- NOTE | 2020-08-24 15:22 | NUR ---
[employer] FAXED TO [facility] #[phone] fax# [phone]
[2020-08-24 16:00] VITALS: BP 110/51
--- NOTE | 2020-08-24 16:00 | NUR ---
NURSE NOTES: Patient consented for the transfusion of FFP; Consent in file;
--- NOTE | 2020-08-24 19:30 | NUR ---
NURSE NOTES: Patient awake in bed. Instructed on NPO at midnight. Patient verbalized understanding. Call light in reach. Bed in lowest and lock engaged. Will continue plan of care.
--- NOTE | 2020-08-24 19:37 | NUR ---
NURSE HAND-OFF: Important Events on Shift:Patient Consented for FFP; Patient Status: Diet: Pending Orders: Pending Results/Labs: Pending MD notification: Latest Vital Signs: Temperature 98.6 , Pulse 97 , B/P 110 /51 , Respiratory Rate 19 , O2 SAT 100 , Room Air, O2 Flow Rate . Vital Sign Comment: Latest Marx Fall Score: 0 Fall Risk: Low Risk Safety Measures: Call light Within Reach, Bed Alarm , Side Rails Side Rails x2, Bed position Low and Locked. Fall Precautions: Patient Fall Education Report given to [PORTIA Millan; endorsed to the incoming nurse that patient should be NPO @mid-night;to be transfused FFP one hour perior to US Paracentesis].
[2020-08-24 20:00] VITALS: BP 118/57
--- NOTE | 2020-08-24 20:45 | General Progress Note ---
Subjective ROS Limited/Unobtainable: Yes - l Allergies: Coded Allergies: No Known Allergies (Unverified , 08/22/20) Objective Last 24 Hour Vital Signs Date Time Temp Pulse Resp B/P (MAP) Pulse Ox O2 Delivery O2 Flow Rate FiO2 08/24/20 16:00 98.6 97 19 110/51 (70) 100 08/24/20 12:00 98.1 112 18 105/46 (65) 100 08/24/20 09:00 Room Air 08/24/20 08:00 97.7 114 18 110/58 (75) 100 08/24/20 04:00 98.8 93 18 129/74 (92) 95 08/24/20 00:00 98.4 90 18 124/75 (91) 96 08/23/20 21:00 Room Air Intake and Output 08/23/20 08/24/20 19:00 07:00 Intake Total 60 ml Balance 60 ml Intake IV Total 60 ml Laboratory Tests 08/24/20 05:20: Prothrombin Time 30.8H, Prothromb Time International Ratio 3.0H, Activated Partial Thromboplast Time 49H, Ammonia 23, Pro-B-Type Natriuretic Peptide 465H, Alpha Fetoprotein [Pending], Hepatitis A IgM Antibody [Pending], Hepatitis B Surface Antigen [Pending], Hepatitis B Core IgM Antibody [Pending], Hepatitis C Antibody [Pending] Height (Feet): 5 Height (Inches): 4.00 Weight (Pounds): 200 Assessment/Plan Problem List: (1) Hepatitis B ICD Codes: B19.10 - Unspecified viral hepatitis B without hepatic coma SNOMED: 75193442, 677453285 (2) Pleural effusion, right ICD Codes: J90 - Pleural effusion, not elsewhere classified SNOMED: 63071308 (3) Peripheral edema ICD Codes: R60.9 - Edema, unspecified SNOMED: 205298720 (4) Anasarca ICD Codes: R60.1 - Generalized edema SNOMED: 292323382, 067799705 (5) Cirrhosis ICD Codes: K74.60 - Unspecified cirrhosis of liver SNOMED: 04367327 (6) Electrolyte imbalance ICD Codes: E87.8 - Other disorders of electrolyte and fluid balance, not elsewhere classified SNOMED: 335852832 (7) Anemia ICD Codes: D64.9 - Anemia, unspecified SNOMED: 255330117 (8) Migraine ICD Codes: G43.909 - Migraine, unspecified, not intractable, without status migrainosus SNOMED: 88419570 (9) Pleural effusion ICD Codes: J90 - Pleural effusion, not elsewhere classified SNOMED: 27197394 (10) UTI (urinary tract infection) ICD Codes: N39.0 - Urinary tract infection, site not specified SNOMED: 20494356 Status: progressing Assessment/Plan: afebrile etoh abuse asictes paracentesis no sbo check lytes and cbc no vomitting Norris Nolan MD Aug 24, 2020 20:45
[2020-08-24] MEDS: Iron Sucrose 100 MG in NS 55 ML IVPB SCH (22:27)
[2020-08-25] VITALS: BP 123/49
[2020-08-25 04:00] VITALS: BP 116/55
--- NOTE | 2020-08-25 06:22 | Hematology/Onc Progress Note ---
Assessment/Plan Assessment/Plan Assessment/Plan # Pancytopenia is related to hx of alcohol use and early cirrhosis --> imaging has been noted --> get para as needed, abd distension --> inr correct with ffp and vit k --> outpatient liver specialist recommended and dw her --> ALSO started on iv iron --> 4 units ffp 08/25 # Coagulopathy due to liver disease --> ffp and vit k correct her inr --> transfuse prn # Hyperbilirubinemia, GI following # Elevated LFTs, GI following # Hypoalbuminemia # UTI # Respiratory distress on arrival # Small pleural effusion # Cirrhosis of the liver, ascites # Cholelithiasis, GI following Appreciate consultation and dw Rn Subjective Constitutional: Denies: no symptoms, chills, fever, malaise, weakness, other HEENT: Denies: no symptoms, eye pain, blurred vision, tearing, double vision, ear pain, ear discharge, nose pain, nose congestion, throat pain, throat swelling, mouth pain, mouth swelling, other Cardiovascular: Denies: no symptoms, chest pain, edema, irregular heart rate, lightheadedness, palpitations, syncope, other Gastrointestinal/Abdominal: Denies: no symptoms, abdomen distended, abdominal pain, black stools, tarry stools, blood in stool, constipated, diarrhea, difficulty swallowing, nausea, poor appetite, poor fluid intake, rectal bleeding, vomiting, other Genitourinary: Denies: no symptoms, burning, discharge, frequency, flank pain, hematuria, incontinence, pain, urgency, other Neurologic/Psychiatric: Denies: no symptoms, anxiety, depressed, emotional problems, headache, numbness, paresthesia, pre-existing deficit, seizure, tingling, tremors, weakness, other Endocrine: Denies: no symptoms, excessive sweating, flushing, intolerance to cold, intolerance to heat, increased hunger, increased thirst, increased urine, unexplained weight gain, unexplained weight loss, other Hematologic/Lymphatic: Denies: no symptoms, anemia, easy bleeding, easy bruising, adenopathy, other Allergies: Coded Allergies: No Known Allergies (Unverified , 08/22/20) Subjective 08/25 to get para and prior to that ffp, labs are noted Objective Objective Current Medications Medications (Trade) Dose Ordered Sig/Emily Route PRN Reason Start Time Stop Time Status Last Admin Dose Admin Acetaminophen (Tylenol) 325 mg Q6H PRN ORAL Mild Pain (Pain Scale 1-3) 08/23/20 16:15 09/22/20 16:14 08/23/20 17:08 Barium Sulfate (Varibar Honey) 250 ml NOW PRN MC RAD 08/22/20 22:00 08/25/20 21:53 Barium Sulfate (Varibar [place]) 240 ml NOW PRN MC RAD 08/22/20 22:00 08/25/20 21:53 Barium Sulfate (Varibar Pudding) 230 ml NOW PRN RAD 08/22/20 22:00 08/25/20 21:53 Barium Sulfate (Varibar Thin Liquid powder) 148 gm NOW PRN RAD 08/22/20 22:00 08/25/20 21:53 Furosemide (Lasix) 40 mg DAILY IV 08/24/20 06:45 09/23/20 06:44 08/24/20 07:00 Iron Sucrose 100 mg/Sodium Chloride 60 ml @ 240 mls/hr BEDTIME IVPB 08/23/20 21:00 08/27/20 21:14 08/24/20 22:27 Lorazepam (Ativan 2mg/ml 1ml) 1 mg Q2H PRN IV delerium tremens/seizure 08/22/20 21:45 08/29/20 21:44 Ondansetron HCl (Zofran) 4 mg Q6H PRN IVP Nausea & Vomiting 08/22/20 21:45 09/21/20 21:44 Pantoprazole (Protonix) 40 mg DAILY ORAL 08/23/20 09:00 09/22/20 08:59 08/24/20 08:16 Potassium Chloride (K-Dur) 40 meq TWICE A DAY ORAL 08/24/20 09:00 11/21/20 17:59 08/24/20 17:39 Spironolactone (Aldactone) 100 mg DAILY ORAL 08/24/20 06:45 09/23/20 06:44 08/24/20 08:20 Last 24 Hour Vital Signs Date Time Temp Pulse Resp B/P (MAP) Pulse Ox O2 Delivery O2 Flow Rate FiO2 08/25/20 04:00 98.2 104 18 116/55 (75) 97 08/25/20 00:00 98.1 101 19 123/49 (73) 100 08/24/20 21:00 Room Air 08/24/20 20:00 97.9 110 18 118/57 (77) 100 08/24/20 16:00 98.6 97 19 110/51 (70) 100 08/24/20 12:00 98.1 112 18 105/46 (65) 100 08/24/20 09:00 Room Air 08/24/20 08:00 97.7 114 18 110/58 (75) 100 08/24/20 04:00 98.8 93 18 129/74 (92) 95 08/24/20 00:00 98.4 90 18 124/75 (91) 96 08/23/20 21:00 Room Air 08/23/20 20:00 98.8 120 18 117/53 (74) 99 08/23/20 16:00 99.7 123 18 116/53 (74) 99 08/23/20 12:00 98.2 121 18 117/53 (74) 96 08/23/20 09:00 Room Air 08/23/20 08:00 98.3 117 18 103/51 (68) 97 Intake and Output 08/24/20 08/25/20 19:00 07:00 Intake Total 500 ml Balance 500 ml Other 500 ml # Voids 3 Labs Test 08/22/20 15:13 08/22/20 15:26 08/22/20 17:16 08/23/20 06:20 Urine Color [place] Urine Appearance Slightly cloudy Urine pH 5 (4.5-8.0) Urine Specific [place] 1.020 (1.005-1.035) Urine Protein 2+ (NEGATIVE) Urine Glucose (UA) Negative (NEGATIVE) Urine Ketones 1+ (NEGATIVE) Urine Blood 5+ (NEGATIVE) Urine Nitrite Positive (NEGATIVE) Urine Bilirubin 3+ (NEGATIVE) Urine Ictotest Positive (NEGATIVE) Urine Urobilinogen 8 MG/DL (0.0-1.0) Urine Leukocyte Esterase 1+ (NEGATIVE) Urine RBC 2-4 /HPF (0 - 2) Urine WBC 0-2 /HPF (0 - 2) Urine Squamous Epithelial Cells Moderate /LPF (NONE/OCC) Urine Bacteria Moderate /HPF (NONE) Urine HCG, Qualitative Negative (NEGATIVE) White Blood Count 8.3 K/UL (4.8-10.8) 8.2 K/UL (4.8-10.8) Red Blood Count 2.74 M/UL (4.20-5.40) 2.87 M/UL (4.20-5.40) Hemoglobin 9.1 G/DL (12.0-16.0) 9.5 G/DL (12.0-16.0) Hematocrit 27.8 % (37.0-47.0) 29.5 % (37.0-47.0) Mean Corpuscular Volume 102 FL (80-99) 103 FL (80-99) Mean Corpuscular Hemoglobin 33.2 PG (27.0-31.0) 33.0 PG (27.0-31.0) Mean Corpuscular Hemoglobin Concent 32.6 G/DL (32.0-36.0) 32.2 G/DL (32.0-36.0) Red Cell Distribution Width 16.8 % (11.6-14.8) 16.8 % (11.6-14.8) Platelet Count 100 K/UL (150-450) 102 K/UL (150-450) Mean Platelet Volume 9.8 FL (6.5-10.1) 9.1 FL (6.5-10.1) Neutrophils (%) (Auto) 53.2 % (45.0-75.0) 51.6 % (45.0-75.0) Lymphocytes (%) (Auto) 29.7 % (20.0-45.0) 34.1 % (20.0-45.0) Monocytes (%) (Auto) 12.4 % (1.0-10.0) 11.1 % (1.0-10.0) Eosinophils (%) (Auto) 2.8 % (0.0-3.0) 1.7 % (0.0-3.0) Basophils (%) (Auto) 1.9 % (0.0-2.0) 1.5 % (0.0-2.0) Prothrombin Time 27.2 SEC (9.30-11.50) Prothromb Time International Ratio 2.7 (0.9-1.1) Sodium Level 136 MMOL/L (136-145) 138 MMOL/L (136-145) Potassium Level 3.6 MMOL/L (3.5-5.1) 3.2 MMOL/L (3.5-5.1) Chloride Level 107 MMOL/L (98-107) 109 MMOL/L (98-107) Carbon Dioxide Level 22 MMOL/L (21-32) 24 MMOL/L (21-32) Anion Gap 7 mmol/L (5-15) 5 mmol/L (5-15) Blood Urea Nitrogen 8 mg/dL (7-18) 9 mg/dL (7-18) Creatinine 0.8 MG/DL (0.55-1.30) 0.8 MG/DL (0.55-1.30) Estimat Glomerular Filtration Rate > 60 mL/min (>60) > 60 mL/min (>60) Glucose Level 113 MG/DL (74-106) 55 MG/DL (74-106) Lactic Acid Level 2.10 mmol/L (0.4-2.0) 1.40 mmol/L (0.66-2.22) Calcium Level 7.4 MG/DL (8.5-10.1) 7.3 MG/DL (8.5-10.1) Total Bilirubin 7.7 MG/DL (0.2-1.0) 7.1 MG/DL (0.2-1.0) Direct Bilirubin 5.7 MG/DL (0.0-0.3) 5.4 MG/DL (0.0-0.3) Aspartate Amino Transf (AST/SGOT) 625 U/L (15-37) 617 U/L (15-37) Alanine Aminotransferase (ALT/SGPT) 231 U/L (12-78) 212 U/L (12-78) Alkaline Phosphatase 266 U/L (46-116) 255 U/L (46-116) Troponin I 0.023 ng/mL (0.000-0.056) Pro-B-Type Natriuretic Peptide 241 pg/mL (0-125) Total Protein 9.0 G/DL (6.4-8.2) 8.9 G/DL (6.4-8.2) Albumin 1.1 G/DL (3.4-5.0) 1.0 G/DL (3.4-5.0) Globulin 7.9 g/dL 7.9 g/dL Albumin/Globulin Ratio 0.1 (1.0-2.7) 0.1 (1.0-2.7) Lipase 314 U/L (73-393) Uric Acid 2.0 MG/DL (2.6-7.2) Phosphorus Level 3.4 MG/DL (2.5-4.9) Magnesium Level 1.8 MG/DL (1.8-2.4) Iron Level 157 ug/dL (50-175) Total Iron Binding Capacity 201 ug/dL (250-450) Percent Iron Saturation 78 % (15-50) Unsaturated Iron Binding 44 ug/dL (112-346) Ferritin 91 NG/ML (8-388) Gamma Glutamyl Transpeptidase 57 U/L (5-85) Vitamin B12 Level 1967 PG/ML (193-986) Folate 14.6 NG/ML (8.6-58.9) Test 08/23/20 11:30 08/24/20 05:20 Prothrombin Time 32.6 SEC (9.30-11.50) 30.8 SEC (9.30-11.50) Prothromb Time International Ratio 3.2 (0.9-1.1) 3.0 (0.9-1.1) D-Dimer 11.61 mg/L FEU (0.00-0.49) Activated Partial Thromboplast Time 49 SEC (23-33) Ammonia 23 umol/L (11-32) Pro-B-Type Natriuretic Peptide 465 pg/mL (0-125) Height (Feet): 5 Height (Inches): 4.00 Weight (Pounds): 200 Objective PHYSICAL EXAMINATION: VITAL SIGNS: reviewed, no fevers General: Patient laying in bed comfortably, NAD on room air HEENT: Scleral icterus, EOMs intact. Lids without swelling. No JVD, CHEST AND LUNGS: Reveals clear, normal, symmetrical breath sounds with no adventitious sounds. CARDIOVASCULAR: Reveals normal S1, S2 without murmurs, rubs, or clicks. ABDOMEN: Morbid obesity, distended, positive fluid wave, negative Olvera sign RECTAL: Deferred. MUSCULOSKELETAL: There is no tenderness to palpation. Range of motion is normal. NEUROLOGICAL: Alert and oriented x3 , nonfocal Richard Alaniz MD Aug 25, 2020 06:22
[2020-08-25 07:23] LABS: MEAN CORPUSCULAR VOLUME 103 FL (80-99); PLATELET COUNT 84 K/UL (150-450); RED BLOOD COUNT 2.43 M/UL (4.20-5.40); RED CELL DISTRIBUTION WIDTH 16.6 % (11.6-14.8); WHITE BLOOD COUNT 6.2 K/UL (4.8-10.8)
[2020-08-25 07:31] LABS: ALANINE AMINOTRANSFERASE 177 U/L (12-78); ALBUMIN 1.4 G/DL (3.4-5.0); ALBUMIN/GLOBULIN RATIO 0.2 (1.0-2.7); ALKALINE PHOSPHATASE 237 U/L (46-116); ANION GAP 5 mmol/L (5-15); ASPARTATE AMINO TRANSFERASE 500 U/L (15-37); BILIRUBIN,TOTAL 7.8 MG/DL (0.2-1.0); BLOOD UREA NITROGEN 11 mg/dL (7-18); CALCIUM 7.7 MG/DL (8.5-10.1); CARBON DIOXIDE 25 MMOL/L (21-32); CHLORIDE 106 MMOL/L (98-107); CREATININE 0.9 MG/DL (0.55-1.30); POTASSIUM 3.5 MMOL/L (3.5-5.1); SODIUM 136 MMOL/L (136-145)
[2020-08-25 07:32] LABS: BILIRUBIN,DIRECT 5.8 MG/DL (0.0-0.3); PHOSPHORUS 2.3 MG/DL (2.5-4.9)
--- NOTE | 2020-08-25 07:35 | NUR ---
NURSE HAND-OFF: Important Events on Shift: pt kept on NPO Patient Status: Diet: Pending Orders: Pending Results/Labs: Pending MD notification: Latest Vital Signs: Temperature 98.2 , Pulse 104 , B/P 116 /55 , Respiratory Rate 18 , O2 SAT 97 , Room Air, O2 Flow Rate . Vital Sign Comment: Latest Marx Fall Score: 0 Fall Risk: Low Risk Safety Measures: Call light Within Reach, Bed Alarm , Side Rails Side Rails x2, Bed position Low and Locked. Fall Precautions: Patient Fall Education Report given to PORTIA Rubin.
--- NOTE | 2020-08-25 07:52 | NUR ---
NURSE NOTES: Patient alert x4; on room air; IV Right Upper Arm, flushes well; side rails up x2, breaks engaged, bed at lowest position; patient scheduled for US Paracentesis today; patient NPO since mid-night; will keep monitoring.
[2020-08-25 08:00] VITALS: BP 122/69
--- NOTE | 2020-08-25 08:37 | General Progress Note ---
Subjective Date patient seen: Aug 25, 2020 Time patient seen: 07:15 Constitutional: Reports: no symptoms HEENT: Reports: no symptoms Cardiovascular: Reports: no symptoms Respiratory: Reports: no symptoms Gastrointestinal/Abdominal: Reports: no symptoms Genitourinary: Reports: no symptoms Neurologic/Psychiatric: Reports: no symptoms Endocrine: Reports: no symptoms Hematologic/Lymphatic: Reports: no symptoms Allergies: Coded Allergies: No Known Allergies (Unverified , 08/22/20) Subjective Patient doing well and denies pain at this time. Objective Last 24 Hour Vital Signs Date Time Temp Pulse Resp B/P (MAP) Pulse Ox O2 Delivery O2 Flow Rate FiO2 08/25/20 04:00 98.2 104 18 116/55 (75) 97 08/25/20 00:00 98.1 101 19 123/49 (73) 100 08/24/20 21:00 Room Air 08/24/20 20:00 97.9 110 18 118/57 (77) 100 08/24/20 16:00 98.6 97 19 110/51 (70) 100 08/24/20 12:00 98.1 112 18 105/46 (65) 100 08/24/20 09:00 Room Air Intake and Output 08/24/20 08/25/20 19:00 07:00 Intake Total 500 ml Balance 500 ml Other 500 ml # Voids 3 Laboratory Tests 08/25/20 05:35: White Blood Count 6.2, Red Blood Count 2.43L, Hemoglobin 8.0L, Hematocrit 25.0L, Mean Corpuscular Volume 103H, Mean Corpuscular Hemoglobin 32.8H, Mean Corpusc ular Hemoglobin Concent 31.8L, Red Cell Distribution Width 16.6H, Platelet Count 84L, Mean Platelet Volume 8.1, Neutrophils (%) (Auto) , Lymphocytes (%) (Auto) , Monocytes (%) (Auto) , Eosinophils (%) (Auto) , Basophils (%) (Auto) , Neutrophils % (Manual) [Pending], Lymphocytes % (Manual) [Pending], Platelet Estimate [Pending], Platelet Morphology [Pending], Prothrombin Time [Pending], Prothromb Time International Ratio [Pending], Activated Partial Thromboplast Time [Pending], Sodium Level 136, Potassium Level 3.5, Chloride Level 106, Carbon Dioxide Level 25, Anion Gap 5, Blood Urea Nitrogen 11, Creatinine 0.9, Estimat Glomerular Filtration Rate > 60, Glucose Level 90, Uric Acid 2.9, Calcium Level 7.7L, Phosphorus Level 2.3L, Magnesium Level 1.5L, Total Bilirubin 7.8H, Direct Bilirubin 5.8H, Gamma Glutamyl Transpeptidase 53, Aspartate Amino Transf (AST/SGOT) 500H, Alanine Aminotransferase (ALT/SGPT) 177H, Alkaline Phosphatase 237H, Total Protein 8.1, Albumin 1.4L, Globulin 6.7, Albumin/Globulin Ratio 0.2L Height (Feet): 5 Height (Inches): 4.00 Weight (Pounds): 200 General Appearance: no apparent distress, alert EENT: PERRL/EOMI Neck: non-tender, normal alignment Cardiovascular: normal rate, regular rhythm Respiratory/Chest: chest wall non-tender, lungs clear Abdomen: distended Extremities: non-tender Edema: no edema noted Generalized Neurologic: alert, oriented x 3 Skin: normal pigmentation Assessment/Plan Assessment/Plan: (1) Abdominal pain (2) Liver cirrhosis Patient to be continued on Tylenol D/w Dr. Hdez and he concurred. Artur Katz Aug 25, 2020 08:37
--- NOTE | 2020-08-25 09:01 | General Progress Note ---
Subjective ROS Limited/Unobtainable: No Allergies: Coded Allergies: No Known Allergies (Unverified , 08/22/20) Objective Last 24 Hour Vital Signs Date Time Temp Pulse Resp B/P (MAP) Pulse Ox O2 Delivery O2 Flow Rate FiO2 08/25/20 04:00 98.2 104 18 116/55 (75) 97 08/25/20 00:00 98.1 101 19 123/49 (73) 100 08/24/20 21:00 Room Air 08/24/20 20:00 97.9 110 18 118/57 (77) 100 08/24/20 16:00 98.6 97 19 110/51 (70) 100 08/24/20 12:00 98.1 112 18 105/46 (65) 100 Intake and Output 08/24/20 08/25/20 19:00 07:00 Intake Total 500 ml Balance 500 ml Other 500 ml # Voids 3 Laboratory Tests 08/25/20 05:35: White Blood Count 6.2, Red Blood Count 2.43L, Hemoglobin 8.0L, Hematocrit 25.0L, Mean Corpuscular Volume 103H, Mean Corpuscular Hemoglobin 32.8H, Mean Corpuscular Hemoglobin Concent 31.8L, Red Cell Distribution Width 16.6H, Platelet Count 84L, Mean Platelet Volume 8.1, Neutrophils (%) (Auto) , Ly mphocytes (%) (Auto) , Monocytes (%) (Auto) , Eosinophils (%) (Auto) , Basophils (%) (Auto) , Neutrophils % (Manual) [Pending], Lymphocytes % (Manual) [Pending], Platelet Estimate [Pending], Platelet Morphology [Pending], Prothrombin Time 30.0H, Prothromb Time International Ratio 3.0H, Activated Partial Thromboplast Time 53H, Sodium Level 136, Potassium Level 3.5, Chloride Level 106, Carbon Dioxide Level 25, Anion Gap 5, Blood Urea Nitrogen 11, Creatinine 0.9, Estimat Glomerular Filtration Rate > 60, Glucose Level 90, Uric Acid 2.9, Calcium Level 7.7L, Phosphorus Level 2.3L, Magnesium Level 1.5L, Total Bilirubin 7.8H, Direct Bilirubin 5.8H, Gamma Glutamyl Transpeptidase 53, Aspartate Amino Transf (AST/SGOT) 500H, Alanine Aminotransferase (ALT/SGPT) 177H, Alkaline Phosphatase 237H, Total Protein 8.1, Albumin 1.4L, Globulin 6.7, Albumin/Globulin Ratio 0.2L Height (Feet): 5 Height (Inches): 4.00 Weight (Pounds): 200 General Appearance: no apparent distress EENT: normal ENT inspection, scleral icterus Neck: supple Cardiovascular: normal rate Respiratory/Chest: decreased breath sounds Abdomen: hypoactive bowel sounds, distended Extremities: non-tender Assessment/Plan Status: progressing Assessment/Plan: hep B cirrhosis ascites gallstones coagulopathy MELD score 27 paracentesis, pending AFP albumin diuretic ( lasix 40 mg iv and aldactone 100 mg po) has out patient hepatology fu needs transplant evaluation and hep B treatment vit k given Faraz Zapata MD Aug 25, 2020 09:01
--- NOTE | 2020-08-25 10:19 | Diagnostic Imaging Report ---
Indication: Reason For Exam: ABD PAIN Technique: Limited four-quadrant ultrasound for ascites Comparison: None. Findings: Only minimal ascites is present. This is seen in the lower pelvis and inconsistently in the right lower quadrant. Incidental note is made of a significant thickened gallbladder wall. Impression: Only minimal ascitic fluid is present.
--- NOTE | 2020-08-25 10:30 | NUR ---
NURSE NOTES: I received order from MD Zapata to cancel the order for FFP and US Paracentesis; order carried out as order given;
[2020-08-25] MEDS: Spironolactone 50mg tab ORAL SCH (10:45)
--- NOTE | 2020-08-25 11:21 | Infectious Diseases Prog Note ---
Assessment/Plan Assessment/Plan IMPRESSION: Cirrhosis of liver, Hepatitis B, Anemia, Thrombocytopenia, Acidosis at the time of admission. Small ascites RECOMMENDATION: Observe off antibiotic. Will f/u hepatitis panel Subjective ROS Limited/Unobtainable: No Constitutional: Reports: no symptoms Respiratory: Reports: no symptoms Cardiovascular: Reports: no symptoms Gastrointestinal/Abdominal: Reports: no symptoms Genitourinary: Reports: no symptoms Allergies: Coded Allergies: No Known Allergies (Unverified , 08/22/20) Objective Last 24 Hour Vital Signs Date Time Temp Pulse Resp B/P (MAP) Pulse Ox O2 Delivery O2 Flow Rate FiO2 08/25/20 04:00 98.2 104 18 116/55 (75) 97 08/25/20 00:00 98.1 101 19 123/49 (73) 100 08/24/20 21:00 Room Air 08/24/20 20:00 97.9 110 18 118/57 (77) 100 08/24/20 16:00 98.6 97 19 110/51 (70) 100 08/24/20 12:00 98.1 112 18 105/46 (65) 100 Height (Feet): 5 Height (Inches): 4.00 Weight (Pounds): 200 HEENT: mucous membranes moist Respiratory/Chest: lungs clear Cardiovascular: tachycardia Abdomen: soft, non tender Extremities: other - minimal edema Neurologic/Psychiatric: alert, oriented x 3, responsive Microbiology Date/Time Source Procedure Growth Status 08/22/20 19:30 Nasopharynx SARS-CoV-2 Antigen (Rapid)(LAURO) - Final Complete 08/22/20 17:16 Blood Blood Culture - Preliminary NO GROWTH AFTER 24 HOURS Resulted 08/22/20 15:26 Blood Blood Culture - Preliminary NO GROWTH AFTER 24 HOURS Resulted 08/22/20 15:13 Urine,Clean Catch Urine Culture - Final Mixed Urogenital Contaminants Complete Laboratory Tests Test 08/25/20 05:35 White Blood Count 6.2 K/UL (4.8-10.8) Red Blood Count 2.43 M/UL (4.20-5.40) L Hemoglobin 8.0 G/DL (12.0-16.0) L Hematocrit 25.0 % (37.0-47.0) L Mean Corpuscular Volume 103 FL (80-99) H Mean Corpuscular Hemoglobin 32.8 PG (27.0-31.0) H Mean Corpuscular Hemoglobin Concent 31.8 G/DL (32.0-36.0) L Red Cell Distribution Width 16.6 % (11.6-14.8) H Platelet Count 84 K/UL (150-450) L Mean Platelet Volume 8.1 FL (6.5-10.1) Neutrophils (%) (Auto) % (45.0-75.0) Lymphocytes (%) (Auto) % (20.0-45.0) Monocytes (%) (Auto) % (1.0-10.0) Eosinophils (%) (Auto) % (0.0-3.0) Basophils (%) (Auto) % (0.0-2.0) Differential Total Cells Counted 100 Neutrophils % (Manual) 64 % (45-75) Lymphocytes % (Manual) 23 % (20-45) Monocytes % (Manual) 10 % (1-10) Eosinophils % (Manual) 3 % (0-3) Basophils % (Manual) 0 % (0-2) Band Neutrophils 0 % (0-8) Platelet Estimate Decreased L Platelet Morphology Normal Hypochromasia 1+ Anisocytosis 1+ Macrocytosis 1+ Prothrombin Time 30.0 SEC (9.30-11.50) H Prothromb Time International Ratio 3.0 (0.9-1.1) H Activated Partial Thromboplast Time 53 SEC (23-33) H Sodium Level 136 MMOL/L (136-145) Potassium Level 3.5 MMOL/L (3.5-5.1) Chloride Level 106 MMOL/L (98-107) Carbon Dioxide Level 25 MMOL/L (21-32) Anion Gap 5 mmol/L (5-15) Blood Urea Nitrogen 11 mg/dL (7-18) Creatinine 0.9 MG/DL (0.55-1.30) Estimat Glomerular Filtration Rate > 60 mL/min (>60) Glucose Level 90 MG/DL (74-106) Uric Acid 2.9 MG/DL (2.6-7.2) Calcium Level 7.7 MG/DL (8.5-10.1) L Phosphorus Level 2.3 MG/DL (2.5-4.9) L Magnesium Level 1.5 MG/DL (1.8-2.4) L Total Bilirubin 7.8 MG/DL (0.2-1.0) H Direct Bilirubin 5.8 MG/DL (0.0-0.3) H Gamma Glutamyl Transpeptidase 53 U/L (5-85) Aspartate Amino Transf (AST/SGOT) 500 U/L (15-37) H Alanine Aminotransferase (ALT/SGPT) 177 U/L (12-78) H Alkaline Phosphatase 237 U/L (46-116) H Total Protein 8.1 G/DL (6.4-8.2) Albumin 1.4 G/DL (3.4-5.0) L Globulin 6.7 g/dL Albumin/Globulin Ratio 0.2 (1.0-2.7) L Current Medications Medications (Trade) Dose Ordered Sig/Emily Route PRN Reason Start Time Stop Time Status Last Admin Dose Admin Acetaminophen (Tylenol) 325 mg Q6H PRN ORAL Mild Pain (Pain Scale 1-3) 08/23/20 16:15 09/22/20 16:14 08/23/20 17:08 Albumin Human 100 ml @ 100 mls/hr ONCE ONCE IV 08/25/20 10:30 08/25/20 11:29 08/25/20 10:47 Barium Sulfate (Varibar Honey) 250 ml NOW PRN MC RAD 08/22/20 22:00 08/25/20 21:53 Barium Sulfate (Varibar [place]) 240 ml NOW PRN MC RAD 08/22/20 22:00 08/25/20 21:53 Barium Sulfate (Varibar Pudding) 230 ml NOW PRN MC RAD 08/22/20 22:00 08/25/20 21:53 Barium Sulfate (Varibar Thin Liquid powder) 148 gm NOW PRN MC RAD 08/22/20 22:00 08/25/20 21:53 Furosemide (Lasix) 40 mg DAILY IV 08/24/20 06:45 09/23/20 06:44 08/25/20 10:47 Iron Sucrose 100 mg/Sodium Chloride 60 ml @ 240 mls/hr BEDTIME IVPB 08/23/20 21:00 08/27/20 21:14 08/24/20 22:27 Lorazepam (Ativan 2mg/ml 1ml) 1 mg Q2H PRN IV delerium tremens/seizure 08/22/20 21:45 08/29/20 21:44 Ondansetron HCl (Zofran) 4 mg Q6H PRN IVP Nausea & Vomiting 08/22/20 21:45 09/21/20 21:44 Pantoprazole (Protonix) 40 mg DAILY ORAL 08/23/20 09:00 09/22/20 08:59 08/25/20 10:45 Potassium Chloride (K-Dur) 40 meq TWICE A DAY ORAL 08/24/20 09:00 11/21/20 17:59 08/25/20 10:47 Spironolactone (Aldactone) 100 mg DAILY ORAL 08/24/20 06:45 09/23/20 06:44 08/25/20 10:45 Elijah Resendiz MD Aug 25, 2020 11:21
--- NOTE | 2020-08-25 11:23 | Pulmonology Progress Note ---
Subjective ROS Limited/Unobtainable: No Interval Events: None major reported per nursing Constitutional: Reports: no symptoms HEENT: Repors: no symptoms Respiratory: Reports: no symptoms Cardiovascular: Reports: no symptoms Gastrointestinal/Abdominal: Reports: no symptoms Allergies: Coded Allergies: No Known Allergies (Unverified , 08/22/20) Objective Last 24 Hour Vital Signs Date Time Temp Pulse Resp B/P (MAP) Pulse Ox O2 Delivery O2 Flow Rate FiO2 08/25/20 04:00 98.2 104 18 116/55 (75) 97 08/25/20 00:00 98.1 101 19 123/49 (73) 100 08/24/20 21:00 Room Air 08/24/20 20:00 97.9 110 18 118/57 (77) 100 08/24/20 16:00 98.6 97 19 110/51 (70) 100 08/24/20 12:00 98.1 112 18 105/46 (65) 100 Intake and Output 08/24/20 08/25/20 19:00 07:00 Intake Total 500 ml Balance 500 ml Other 500 ml # Voids 3 General Appearance: no acute distress HEENT: atraumatic Respiratory: lungs clear Cardiovascular: normal rate Abdomen: distended, tender, other - striae Microbiology Date/Time Source Procedure Growth Status 08/22/20 19:30 Nasopharynx SARS-CoV-2 Antigen (Rapid)(LAURO) - Final Complete 08/22/20 17:16 Blood Blood Culture - Preliminary NO GROWTH AFTER 24 HOURS Resulted 08/22/20 15:26 Blood Blood Culture - Preliminary NO GROWTH AFTER 24 HOURS Resulted 08/22/20 15:13 Urine,Clean Catch Urine Culture - Final Mixed Urogenital Contaminants Complete Laboratory Tests 08/25/20 05:35: White Blood Count 6.2, Red Blood Count 2.43L, Hemoglobin 8.0L, Hematocrit 25.0L, Mean Corpuscular Volume 103H, Mean Corpuscular Hemoglobin 32.8H, Mean Corpuscular Hemoglobin Concent 31.8L, Red Cell Distribution Width 16.6H, Platelet Count 84L, Mean Platelet Volume 8.1, Neutrophils (%) (Auto) , Lymphocytes (%) (Auto) , Monocytes (%) (Auto) , Eosinophils (%) (Auto) , Basophils (%) (Auto) , Differential Total Cells Counted 100, Neutrophils % (Manual) 64, Lymphocytes % (Manual) 23, Monocytes % (Manual) 10, Eosinophils % (Manual) 3, Basophils % (Manual) 0, Band Neutrophils 0, Platelet Estimate DecreasedL, Platelet Morphology Normal, Hypochromasia 1+, Anisocytosis 1+, Macrocytosis 1+, Prothrombin Time 30.0H, Prothromb Time International Ratio 3.0H , Activated Partial Thromboplast Time 53H, Sodium Level 136, Potassium Level 3.5, Chloride Level 106, Carbon Dioxide Level 25, Anion Gap 5, Blood Urea Nitrogen 11, Creatinine 0.9, Estimat Glomerular Filtration Rate > 60, Glucose Level 90, Uric Acid 2.9, Calcium Level 7.7L, Phosphorus Level 2.3L, Magnesium Level 1.5L, Total Bilirubin 7.8H, Direct Bilirubin 5.8H, Gamma Glutamyl Transpeptidase 53, Aspartate Amino Transf (AST/SGOT) 500H, Alanine Am inotransferase (ALT/SGPT) 177H, Alkaline Phosphatase 237H, Total Protein 8.1, Albumin 1.4L, Globulin 6.7, Albumin/Globulin Ratio 0.2L Current Medications Medications (Trade) Dose Ordered Sig/Emily Route PRN Reason Start Time Stop Time Status Last Admin Dose Admin Acetaminophen (Tylenol) 325 mg Q6H PRN ORAL Mild Pain (Pain Scale 1-3) 08/23/20 16:15 09/22/20 16:14 08/23/20 17:08 Albumin Human 100 ml @ 100 mls/hr ONCE ONCE IV 08/25/20 10:30 08/25/20 11:29 08/25/20 10:47 Barium Sulfate (Varibar Honey) 250 ml NOW PRN MC RAD 08/22/20 22:00 08/25/20 21:53 Barium Sulfate (Varibar [place]) 240 ml NOW PRN MC RAD 08/22/20 22:00 08/25/20 21:53 Barium Sulfate (Varibar Pudding) 230 ml NOW PRN MC RAD 08/22/20 22:00 08/25/20 21:53 Barium Sulfate (Varibar Thin Liquid powder) 148 gm NOW PRN MC RAD 08/22/20 22:00 08/25/20 21:53 Furosemide (Lasix) 40 mg DAILY IV 08/24/20 06:45 09/23/20 06:44 08/25/20 10:47 Iron Sucrose 100 mg/Sodium Chloride 60 ml @ 240 mls/hr BEDTIME IVPB 08/23/20 21:00 08/27/20 21:14 08/24/20 22:27 Lorazepam (Ativan 2mg/ml 1ml) 1 mg Q2H PRN IV delerium tremens/seizure 08/22/20 21:45 08/29/20 21:44 Ondansetron HCl (Zofran) 4 mg Q6H PRN IVP Nausea & Vomiting 08/22/20 21:45 09/21/20 21:44 Pantoprazole (Protonix) 40 mg DAILY ORAL 08/23/20 09:00 09/22/20 08:59 08/25/20 10:45 Potassium Chloride (K-Dur) 40 meq TWICE A DAY ORAL 08/24/20 09:00 11/21/20 17:59 08/25/20 10:47 Spironolactone (Aldactone) 100 mg DAILY ORAL 08/24/20 06:45 09/23/20 06:44 08/25/20 10:45 Assessment/Plan Assessment/Plan 1. DVT ppx - with tachycardia and leg edema -Elevated D-dimer (08/23) - Venous duplex of legs (08/23) negative for DVT -> SCD and ambulate 2. Hyperbilirubinemia, GI following 3. Elevated LFTs, GI following 4. Hypoalbuminemia -Albumin replaced 5. UTI -Follow-up UCx negative - s/p broad spectrum Abx 6. Respiratory distress on arrival -Now saturating well on room air -Monitor for hypoxia and provide supplemental oxygen as needed 7. Small pleural effusion -Monitor effusions for now given normoxemia -We will consider thoracentesis if effusion increases in size 8. Cirrhosis of the liver, ascites -GI following -Scheduled for paracentesis (08/25) -Outpatient hepatology follow-up on 08/28/2020 per patient 9. Cholelithiasis, GI following 10. Anemia -On IV iron The care for this patient was discussed with my supervising physician. Time spent for this case was approximately 31 minutes. Harpal Mares Aug 25, 2020 11:23
--- NOTE | 2020-08-25 11:35 | Nephrology Progress Note ---
Assessment/Plan Problem List: (1) Electrolyte imbalance (2) Anasarca (3) Cirrhosis (4) Anemia (5) Cholelithiasis Assessment Electrolyte imbalance Cirrhosis of the liver, ascites Hepatitis B Previous alcohol dependent Gallstones Anemia Plan August 25: Labs reviewed. Low magnesium and low potassium addressed. Discussed with GI. Continue current management. Stable for discharge from renal standpoint of view. August 24: No labs drawn today. Stable from renal standpoint of view. paracentesis, pending Check AFP albumin infusion diuretic ( lasix 40 mg iv and aldactone 100 mg po) has out patient hepatology fu needs transplant evaluation and hep B treatment vit k given Subjective ROS Limited/Unobtainable: No Constitutional: Reports: malaise Objective Objective Last 24 Hour Vital Signs Date Time Temp Pulse Resp B/P (MAP) Pulse Ox O2 Delivery O2 Flow Rate FiO2 08/25/20 04:00 98.2 104 18 116/55 (75) 97 08/25/20 00:00 98.1 101 19 123/49 (73) 100 08/24/20 21:00 Room Air 08/24/20 20:00 97.9 110 18 118/57 (77) 100 08/24/20 16:00 98.6 97 19 110/51 (70) 100 08/24/20 12:00 98.1 112 18 105/46 (65) 100 Intake and Output 08/24/20 08/25/20 19:00 07:00 Intake Total 500 ml Balance 500 ml Other 500 ml # Voids 3 Current Medications Medications (Trade) Dose Ordered Sig/Emily Route PRN Reason Start Time Stop Time Status Last Admin Dose Admin Acetaminophen (Tylenol) 325 mg Q6H PRN ORAL Mild Pain (Pain Scale 1-3) 08/23/20 16:15 09/22/20 16:14 08/23/20 17:08 Barium Sulfate (Varibar Honey) 250 ml NOW PRN MC RAD 08/22/20 22:00 08/25/20 21:53 Barium Sulfate (Varibar [place]) 240 ml NOW PRN MC RAD 08/22/20 22:00 08/25/20 21:53 Barium Sulfate (Varibar Pudding) 230 ml NOW PRN MC RAD 08/22/20 22:00 08/25/20 21:53 Barium Sulfate (Varibar Thin Liquid powder) 148 gm NOW PRN MC RAD 08/22/20 22:00 08/25/20 21:53 Furosemide (Lasix) 40 mg DAILY IV 08/24/20 06:45 09/23/20 06:44 08/25/20 10:47 Iron Sucrose 100 mg/Sodium Chloride 60 ml @ 240 mls/hr BEDTIME IVPB 08/23/20 21:00 08/27/20 21:14 08/24/20 22:27 Lorazepam (Ativan 2mg/ml 1ml) 1 mg Q2H PRN IV delerium tremens/seizure 08/22/20 21:45 08/29/20 21:44 Ondansetron HCl (Zofran) 4 mg Q6H PRN IVP Nausea & Vomiting 08/22/20 21:45 09/21/20 21:44 Pantoprazole (Protonix) 40 mg DAILY ORAL 08/23/20 09:00 09/22/20 08:59 08/25/20 10:45 Potassium Chloride (K-Dur) 40 meq TWICE A DAY ORAL 08/24/20 09:00 11/21/20 17:59 08/25/20 10:47 Spironolactone (Aldactone) 100 mg DAILY ORAL 08/24/20 06:45 09/23/20 06:44 08/25/20 10:45 Laboratory Tests 08/25/20 05:35: White Blood Count 6.2, Red Blood Count 2.43L, Hemoglobin 8.0L, Hematocrit 25.0L, Mean Corpuscular Volume 103H, Mean Corpuscular Hemoglobin 32.8H, Mean Corpuscular Hemoglobin Concent 31.8L, Red Cell Distribution Width 16.6H, Platelet Count 84L, Mean Platelet Volume 8.1, Neutrophils (%) (Auto) , Lymphocytes (%) (Auto) , Monocytes (%) (Auto) , Eosinophils (%) (Auto) , Basophils (%) (Auto) , Differential Total Cells Counted 100, Neutrophils % (Manual) 64, Lymphocytes % (Manual) 23, Monocytes % (Manual) 10, Eosinophils % (Manual) 3, Basophils % (Manual) 0, Band Neutrophils 0, Platelet Estimate DecreasedL, Platelet Morphology Normal, Hypochromasia 1+, Anisocytosis 1+, Macrocytosis 1+, Prothrombin Time 30.0H, Prothromb Time International Ratio 3.0H , Activated Partial Thromboplast Time 53H, Sodium Level 136, Potassium Level 3.5, Chloride Level 106, Carbon Dioxide Level 25, Anion Gap 5, Blood Urea Nitrogen 11, Creatinine 0.9, Estimat Glomerular Filtration Rate > 60, Glucose Level 90, Uric Acid 2.9, Calcium Level 7.7L, Phosphorus Level 2.3L, Magnesium Level 1.5L, Total Bilirubin 7.8H, Direct Bilirubin 5.8H, Gamma Glutamyl Transpeptidase 53, Aspartate Amino Transf (AST/SGOT) 500H, Alanine Amino transferase (ALT/SGPT) 177H, Alkaline Phosphatase 237H, Total Protein 8.1, Albumin 1.4L, Globulin 6.7, Albumin/Globulin Ratio 0.2L Height (Feet): 5 Height (Inches): 4.00 Weight (Pounds): 200 General Appearance: no apparent distress Cardiovascular: tachycardia Respiratory/Chest: decreased breath sounds Abdomen: distended, other - Ascites Sidney Morel MD Aug 25, 2020 11:35
[2020-08-25 12:00] VITALS: BP 130/72
--- NOTE | 2020-08-25 12:18 | Cardiac Electrophysiology PN ---
Assessment/Plan Assessment/Plan 1. Shortness of breath due to volume overload. The patient has cirrhosis of the liver. Her INR is 3.2. D-dimer is 11.6. EF 75% On Lasix 40 iv daily and Aldactone 100 daily 2. Cirrhosis of the liver with ascites and with the INR, the patient received FFP and albumin and vitamin K Not enough fluid for paracentesis. 3. History of hepatitis B and alcoholism. Fu by Dr. Zapata. 4. Gallstones. Subjective Subjective I No CP. On Lasix 40 iv daily and Aldactone 100 daily. Paracentesis was cancelled as not enough fluid found by US Objective Last 24 Hour Vital Signs Date Time Temp Pulse Resp B/P (MAP) Pulse Ox O2 Delivery O2 Flow Rate FiO2 08/25/20 12:00 97.9 113 18 130/72 (91) 100 08/25/20 09:00 Room Air 08/25/20 08:00 98.2 104 18 122/69 (86) 99 08/25/20 04:00 98.2 104 18 116/55 (75) 97 08/25/20 00:00 98.1 101 19 123/49 (73) 100 08/24/20 21:00 Room Air 08/24/20 20:00 97.9 110 18 118/57 (77) 100 08/24/20 16:00 98.6 97 19 110/51 (70) 100 Intake and Output 08/24/20 08/25/20 19:00 07:00 Intake Total 500 ml Balance 500 ml Other 500 ml # Voids 3 Laboratory Tests Test 08/25/20 05:35 White Blood Count 6.2 K/UL (4.8-10.8) Red Blood Count 2.43 M/UL (4.20-5.40) L Hemoglobin 8.0 G/DL (12.0-16.0) L Hematocrit 25.0 % (37.0-47.0) L Mean Corpuscular Volume 103 FL (80-99) H Mean Corpuscular Hemoglobin 32.8 PG (27.0-31.0) H Mean Corpuscular Hemoglobin Concent 31.8 G/DL (32.0-36.0) L Red Cell Distribution Width 16.6 % (11.6-14.8) H Platelet Count 84 K/UL (150-450) L Mean Platelet Volume 8.1 FL (6.5-10.1) Neutrophils (%) (Auto) % (45.0-75.0) Lymphocytes (%) (Auto) % (20.0-45.0) Monocytes (%) (Auto) % (1.0-10.0) Eosinophils (%) (Auto) % (0.0-3.0) Basophils (%) (Auto) % (0.0-2.0) Differential Total Cells Counted 100 Neutrophils % (Manual) 64 % (45-75) Lymphocytes % (Manual) 23 % (20-45) Monocytes % (Manual) 10 % (1-10) Eosinophils % (Manual) 3 % (0-3) Basophils % (Manual) 0 % (0-2) Band Neutrophils 0 % (0-8) Platelet Estimate Decreased L Platelet Morphology Normal Hypochromasia 1+ Anisocytosis 1+ Macrocytosis 1+ Prothrombin Time 30.0 SEC (9.30-11.50) H Prothromb Time International Ratio 3.0 (0.9-1.1) H Activated Partial Thromboplast Time 53 SEC (23-33) H Sodium Level 136 MMOL/L (136-145) Potassium Level 3.5 MMOL/L (3.5-5.1) Chloride Level 106 MMOL/L (98-107) Carbon Dioxide Level 25 MMOL/L (21-32) Anion Gap 5 mmol/L (5-15) Blood Urea Nitrogen 11 mg/dL (7-18) Creatinine 0.9 MG/DL (0.55-1.30) Estimat Glomerular Filtration Rate > 60 mL/min (>60) Glucose Level 90 MG/DL (74-106) Uric Acid 2.9 MG/DL (2.6-7.2) Calcium Level 7.7 MG/DL (8.5-10.1) L Phosphorus Level 2.3 MG/DL (2.5-4.9) L Magnesium Level 1.5 MG/DL (1.8-2.4) L Total Bilirubin 7.8 MG/DL (0.2-1.0) H Direct Bilirubin 5.8 MG/DL (0.0-0.3) H Gamma Glutamyl Transpeptidase 53 U/L (5-85) Aspartate Amino Transf (AST/SGOT) 500 U/L (15-37) H Alanine Aminotransferase (ALT/SGPT) 177 U/L (12-78) H Alkaline Phosphatase 237 U/L (46-116) H Total Protein 8.1 G/DL (6.4-8.2) Albumin 1.4 G/DL (3.4-5.0) L Globulin 6.7 g/dL Albumin/Globulin Ratio 0.2 (1.0-2.7) L Microbiology Date/Time Source Procedure Growth Status 08/22/20 19:30 Nasopharynx SARS-CoV-2 Antigen (Rapid)(LAURO) - Final Complete 08/22/20 17:16 Blood Blood Culture - Preliminary NO GROWTH AFTER 24 HOURS Resulted 08/22/20 15:26 Blood Blood Culture - Preliminary NO GROWTH AFTER 24 HOURS Resulted 08/22/20 15:13 Urine,Clean Catch Urine Culture - Final Mixed Urogenital Contaminants Complete Objective HEAD AND NECK: No JVD, but she has jaundiced sclerae. LUNGS: Clear. CARDIOVASCULAR: Regular S1 and S2 with no gallop. ABDOMEN: Distended with ascites. EXTREMITIES: 1+ pitting edema. Benjamin Cunningham MD Aug 25, 2020 12:18
[2020-08-25] MEDS ORDERED: Potassium Phosphate 20 MM in NS 275 ML IV ONE (13:00)
[2020-08-25 16:00] VITALS: BP 121/64
--- NOTE | 2020-08-25 18:58 | General Progress Note ---
Subjective Allergies: Coded Allergies: No Known Allergies (Unverified , 08/22/20) Objective Last 24 Hour Vital Signs Date Time Temp Pulse Resp B/P (MAP) Pulse Ox O2 Delivery O2 Flow Rate FiO2 08/25/20 16:00 98.2 118 18 121/64 (83) 99 08/25/20 12:00 97.9 113 18 130/72 (91) 100 08/25/20 09:00 Room Air 08/25/20 08:00 98.2 104 18 122/69 (86) 99 08/25/20 04:00 98.2 104 18 116/55 (75) 97 08/25/20 00:00 98.1 101 19 123/49 (73) 100 08/24/20 21:00 Room Air 08/24/20 20:00 97.9 110 18 118/57 (77) 100 Intake and Output 08/24/20 08/25/20 19:00 07:00 Intake Total 500 ml Balance 500 ml Other 500 ml # Voids 3 Laboratory Tests 08/25/20 05:35: White Blood Count 6.2, Red Blood Count 2.43L, Hemoglobin 8.0L, Hematocrit 25.0L, Mean Corpuscular Volume 103H, Mean Corpuscular Hemoglobin 32.8H, Mean Corpuscular Hemoglobin Concent 31.8L, Red Cell Distribution Width 16.6H, Platelet Count 84L, Mean Platelet Volume 8.1, Neutrophils (%) (Auto) , Lymphocytes (%) (Auto) , Monocytes (%) (Auto) , Eosinophils (%) (Auto) , Basophils (%) (Auto) , Differential Total Cells Counted 100, Neutrophils % (Manual) 64, Lymphocytes % (Manual) 23, Monocytes % (Manual) 10, Eosinophils % (Manual) 3, Basophils % (Manual) 0, Band Neutrophils 0, Platelet Estimate DecreasedL, Platelet Morphology Normal, Hypochromasia 1+, Anisocytosis 1+, Macrocytosis 1+, Prothrombin Time 30.0H, Prothromb Time International Ratio 3.0H , Activated Partial Thromboplast Time 53H, Sodium Level 136, Potassium Level 3.5, Chloride Level 106, Carbon Dioxide Level 25, Anion Gap 5, Blood Urea Nitrogen 11, Creatinine 0.9, Estimat Glomerular Filtration Rate > 60, Glucose Level 90, Uric Acid 2.9, Calcium Level 7.7L, Phosphorus Level 2.3L, Magnesium Level 1.5L, Total Bilirubin 7.8H, Direct Bilirubin 5.8H, Gamma Glutamyl Transpeptidase 53, Aspartate Amino Transf (AST/SGOT) 500H, Alanine Ortiz otransferase (ALT/SGPT) 177H, Alkaline Phosphatase 237H, Total Protein 8.1, Albumin 1.4L, Globulin 6.7, Albumin/Globulin Ratio 0.2L Height (Feet): 5 Height (Inches): 4.00 Weight (Pounds): 200 Assessment/Plan Problem List: (1) Hepatitis B ICD Codes: B19.10 - Unspecified viral hepatitis B without hepatic coma SNOMED: 53506673, 196201455 (2) Pleural effusion, right ICD Codes: J90 - Pleural effusion, not elsewhere classified SNOMED: 52965070 (3) Peripheral edema ICD Codes: R60.9 - Edema, unspecified SNOMED: 839973964 (4) Anasarca ICD Codes: R60.1 - Generalized edema SNOMED: 749430589, 266700774 (5) Cirrhosis ICD Codes: K74.60 - Unspecified cirrhosis of liver SNOMED: 29041945 (6) Electrolyte imbalance ICD Codes: E87.8 - Other disorders of electrolyte and fluid balance, not elsewhere classified SNOMED: 583680220 (7) Anemia ICD Codes: D64.9 - Anemia, unspecified SNOMED: 577602832 (8) Migraine ICD Codes: G43.909 - Migraine, unspecified, not intractable, without status migrainosus SNOMED: 74843517 (9) Pleural effusion ICD Codes: J90 - Pleural effusion, not elsewhere classified SNOMED: 56885697 (10) UTI (urinary tract infection) ICD Codes: N39.0 - Urinary tract infection, site not specified SNOMED: 81418807 Status: progressing Assessment/Plan: dc planning no seizure check lytes etoh abuse asictes paracentesis Norris Nolan MD Aug 25, 2020 18:58
--- NOTE | 2020-08-25 19:47 | NUR ---
NURSE HAND-OFF: Important Events on Shift:4 bags of Mg given; 1 bag of Phosphate bag given; 1 Unit of FFP given; Patient Status: Diet: Pending Orders: Pending Results/Labs: Pending MD notification: Latest Vital Signs: Temperature 98.2 , Pulse 118 , B/P 121 /64 , Respiratory Rate 18 , O2 SAT 99 , Room Air, O2 Flow Rate . Vital Sign Comment: Latest Marx Fall Score: 0 Fall Risk: Low Risk Safety Measures: Call light Within Reach, Bed Alarm , Side Rails Side Rails x2, Bed position Low and Locked. Fall Precautions: Patient Fall Education Report given to .
--- NOTE | 2020-08-25 19:48 | NUR ---
NURSE NOTES: Received patient in no apparent distress. A&OX4. IV site patent and intact. Bed in lowest position. Call light within reach. Will continue to monitor.
[2020-08-25 20:00] VITALS: BP 128/72
[2020-08-25] MEDS: Iron Sucrose 100 MG in NS 55 ML IVPB SCH (21:18)
[2020-08-26] VITALS: BP 107/56
[2020-08-26 04:00] VITALS: BP 115/59
--- NOTE | 2020-08-26 07:06 | Hematology/Onc Progress Note ---
Assessment/Plan Assessment/Plan Assessment/Plan # Pancytopenia is related to hx of alcohol use and early cirrhosis --> imaging has been noted --> get para as needed, abd distension --> inr correct with ffp and vit k --> outpatient liver specialist recommended and dw her --> ALSO started on iv iron --> 4 units ffp 08/25 # Coagulopathy due to liver disease --> ffp and vit k correct her inr --> transfuse prn # Hyperbilirubinemia, GI following # Elevated LFTs, GI following # Hypoalbuminemia # UTI # Respiratory distress on arrival # Small pleural effusion # Cirrhosis of the liver, ascites # Cholelithiasis, GI following Appreciate consultation and dw Rn Subjective Constitutional: Denies: no symptoms, chills, fever, malaise, weakness, other HEENT: Denies: no symptoms, eye pain, blurred vision, tearing, double vision, ear pain, ear discharge, nose pain, nose congestion, throat pain, throat swelling, mouth pain, mouth swelling, other Cardiovascular: Denies: no symptoms, chest pain, edema, irregular heart rate, lightheadedness, palpitations, syncope, other Genitourinary: Denies: no symptoms, burning, discharge, frequency, flank pain, hematuria, incontinence, pain, urgency, other Neurologic/Psychiatric: Denies: no symptoms, anxiety, depressed, emotional problems, headache, numbness, paresthesia, pre-existing deficit, seizure, tingling, tremors, weakness, other Endocrine: Denies: no symptoms, excessive sweating, flushing, intolerance to cold, intolerance to heat, increased hunger, increased thirst, increased urine, unexplained weight gain, unexplained weight loss, other Hematologic/Lymphatic: Denies: no symptoms, anemia, easy bleeding, easy bruising, adenopathy, other Allergies: Coded Allergies: No Known Allergies (Unverified , 08/22/20) Subjective 08/25 to get para and prior to that ffp, labs are noted 08/26 para as per gi, labs are pending from the am Objective Objective Current Medications Medications (Trade) Dose Ordered Sig/Emily Route PRN Reason Start Time Stop Time Status Last Admin Dose Admin Acetaminophen (Tylenol) 325 mg Q6H PRN ORAL Mild Pain (Pain Scale 1-3) 08/23/20 16:15 09/22/20 16:14 08/23/20 17:08 Furosemide (Lasix) 40 mg DAILY IV 08/24/20 06:45 09/23/20 06:44 08/25/20 10:47 Iron Sucrose 100 mg/Sodium Chloride 60 ml @ 240 mls/hr BEDTIME IVPB 08/23/20 21:00 08/27/20 21:14 08/25/20 21:18 Lorazepam (Ativan 2mg/ml 1ml) 1 mg Q2H PRN IV delerium tremens/seizure 08/22/20 21:45 08/29/20 21:44 Ondansetron HCl (Zofran) 4 mg Q6H PRN IVP Nausea & Vomiting 08/22/20 21:45 09/21/20 21:44 Pantoprazole (Protonix) 40 mg DAILY ORAL 08/23/20 09:00 09/22/20 08:59 08/25/20 10:45 Potassium Chloride (K-Dur) 40 meq TWICE A DAY ORAL 08/24/20 09:00 11/21/20 17:59 08/25/20 17:10 Spironolactone (Aldactone) 100 mg DAILY ORAL 08/24/20 06:45 09/23/20 06:44 08/25/20 10:45 Last 24 Hour Vital Signs Date Time Temp Pulse Resp B/P (MAP) Pulse Ox O2 Delivery O2 Flow Rate FiO2 08/26/20 04:00 97.9 101 20 115/59 (77) 97 08/26/20 00:00 98.4 104 20 107/56 (73) 98 08/25/20 21:00 Room Air 08/25/20 20:00 98.2 109 20 128/72 (90) 99 08/25/20 16:00 98.2 118 18 121/64 (83) 99 08/25/20 12:00 97.9 113 18 130/72 (91) 100 08/25/20 09:00 Room Air 08/25/20 08:00 98.2 104 18 122/69 (86) 99 08/25/20 04:00 98.2 104 18 116/55 (75) 97 08/25/20 00:00 98.1 101 19 123/49 (73) 100 08/24/20 21:00 Room Air 08/24/20 20:00 97.9 110 18 118/57 (77) 100 2/23/21 16:00 98.6 97 19 110/51 (70) 100 08/24/20 12:00 98.1 112 18 105/46 (65) 100 08/24/20 09:00 Room Air 08/24/20 08:00 97.7 114 18 110/58 (75) 100 Intake and Output 08/25/20 08/26/20 19:00 07:00 Intake Total 900 ml 420 ml Balance 900 ml 420 ml Intake Oral 600 ml IV Total 300 ml 60 ml Other 360 ml # Voids 4 2 Labs Test 08/23/20 11:30 08/24/20 05:20 08/25/20 05:35 Prothrombin Time 32.6 SEC (9.30-11.50) 30.8 SEC (9.30-11.50) 30.0 SEC (9.30-11.50) Prothromb Time International Ratio 3.2 (0.9-1.1) 3.0 (0.9-1.1) 3.0 (0.9-1.1) D-Dimer 11.61 mg/L FEU (0.00-0.49) Activated Partial Thromboplast Time 49 SEC (23-33) 53 SEC (23-33) Ammonia 23 umol/L (11-32) Pro-B-Type Natriuretic Peptide 465 pg/mL (0-125) White Blood Count 6.2 K/UL (4.8-10.8) Red Blood Count 2.43 M/UL (4.20-5.40) Hemoglobin 8.0 G/DL (12.0-16.0) Hematocrit 25.0 % (37.0-47.0) Mean Corpuscular Volume 103 FL (80-99) Mean Corpuscular Hemoglobin 32.8 PG (27.0-31.0) Mean Corpuscular Hemoglobin Concent 31.8 G/DL (32.0-36.0) Red Cell Distribution Width 16.6 % (11.6-14.8) Platelet Count 84 K/UL (150-450) Mean Platelet Volume 8.1 FL (6.5-10.1) Neutrophils (%) (Auto) % (45.0-75.0) Lymphocytes (%) (Auto) % (20.0-45.0) Monocytes (%) (Auto) % (1.0-10.0) Eosinophils (%) (Auto) % (0.0-3.0) Basophils (%) (Auto) % (0.0-2.0) Differential Total Cells Counted 100 Neutrophils % (Manual) 64 % (45-75) Lymphocytes % (Manual) 23 % (20-45) Monocytes % (Manual) 10 % (1-10) Eosinophils % (Manual) 3 % (0-3) Basophils % (Manual) 0 % (0-2) Band Neutrophils 0 % (0-8) Platelet Estimate Decreased Platelet Morphology Normal Hypochromasia 1+ Anisocytosis 1+ Macrocytosis 1+ Sodium Level 136 MMOL/L (136-145) Potassium Level 3.5 MMOL/L (3.5-5.1) Chloride Level 106 MMOL/L (98-107) Carbon Dioxide Level 25 MMOL/L (21-32) Anion Gap 5 mmol/L (5-15) Blood Urea Nitrogen 11 mg/dL (7-18) Creatinine 0.9 MG/DL (0.55-1.30) Estimat Glomerular Filtration Rate > 60 mL/min (>60) Glucose Level 90 MG/DL (74-106) Uric Acid 2.9 MG/DL (2.6-7.2) Calcium Level 7.7 MG/DL (8.5-10.1) Phosphorus Level 2.3 MG/DL (2.5-4.9) Magnesium Level 1.5 MG/DL (1.8-2.4) Total Bilirubin 7.8 MG/DL (0.2-1.0) Direct Bilirubin 5.8 MG/DL (0.0-0.3) Gamma Glutamyl Transpeptidase 53 U/L (5-85) Aspartate Amino Transf (AST/SGOT) 500 U/L (15-37) Alanine Aminotransferase (ALT/SGPT) 177 U/L (12-78) Alkaline Phosphatase 237 U/L (46-116) Total Protein 8.1 G/DL (6.4-8.2) Albumin 1.4 G/DL (3.4-5.0) Globulin 6.7 g/dL Albumin/Globulin Ratio 0.2 (1.0-2.7) Height (Feet): 5 Height (Inches): 4.00 Weight (Pounds): 200 Objective PHYSICAL EXAMINATION: VITAL SIGNS: reviewed, no fevers General: Patient laying in bed comfortably, NAD on room air HEENT: Scleral icterus, EOMs intact. Lids without swelling. No JVD, CHEST AND LUNGS: Reveals clear, normal, symmetrical breath sounds with no adventitious sounds. CARDIOVASCULAR: Reveals normal S1, S2 without murmurs, rubs, or clicks. ABDOMEN: Morbid obesity, distended, positive fluid wave, negative Olvera sign RECTAL: Deferred. MUSCULOSKELETAL: There is no tenderness to palpation. Range of motion is normal. NEUROLOGICAL: Alert and oriented x3 , nonfocal Richard Alaniz MD Aug 26, 2020 07:06
--- NOTE | 2020-08-26 07:51 | NUR ---
NURSE HAND-OFF: Important Events on Shift: Patient Status: Diet: Pending Orders: Pending Results/Labs: Pending MD notification: Latest Vital Signs: Temperature 97.9 , Pulse 101 , B/P 115 /59 , Respiratory Rate 20 , O2 SAT 97 , Room Air, O2 Flow Rate . Vital Sign Comment: Latest Marx Fall Score: 0 Fall Risk: Low Risk Safety Measures: Call light Within Reach, Bed Alarm Zone 1, Side Rails Side Rails x2, Bed position Low and Locked. Fall Precautions: Patient Fall Education Report given to Dannie PEARCE.
--- NOTE | 2020-08-26 07:55 | NUR ---
NURSE NOTES: Patient sitting up in bed, on room air, no c/o pain, no SOB, bed in lowest position, call light within reach, wheels locked, side rails up x 3, eating breakfast, IV patent in right upper arm.
[2020-08-26 08:00] VITALS: BP 120/73
[2020-08-26 09:12] LABS: HEMATOCRIT 25.2 % (37.0-47.0); HEMOGLOBIN 8.3 G/DL (12.0-16.0); MEAN CORPUSCULAR VOLUME 103 FL (80-99); PLATELET COUNT 72 K/UL (150-450); RED BLOOD COUNT 2.46 M/UL (4.20-5.40); RED CELL DISTRIBUTION WIDTH 17.2 % (11.6-14.8); WHITE BLOOD COUNT 7.9 K/UL (4.8-10.8)
--- NOTE | 2020-08-26 09:12 | General Progress Note ---
Subjective Date patient seen: Aug 26, 2020 Time patient seen: 07:15 - am Allergies: Coded Allergies: No Known Allergies (Unverified , 08/22/20) Subjective Constitutional: Reports: no symptoms HEENT: Reports: no symptoms Cardiovascular: Reports: no symptoms Respiratory: Reports: no symptoms Gastrointestinal/Abdominal: Reports: no symptoms Genitourinary: Reports: no symptoms Neurologic/Psychiatric: Reports: no symptoms Endocrine: Reports: no symptoms Hematologic/Lymphatic: Reports: no symptoms Subjective Patient resting in bed and denies pain. No new complaints at this time. Objective Last 24 Hour Vital Signs Date Time Temp Pulse Resp B/P (MAP) Pulse Ox O2 Delivery O2 Flow Rate FiO2 08/26/20 08:00 98.1 108 18 120/73 (89) 100 08/26/20 04:00 97.9 101 20 115/59 (77) 97 08/26/20 00:00 98.4 104 20 107/56 (73) 98 08/25/20 21:00 Room Air 08/25/20 20:00 98.2 109 20 128/72 (90) 99 08/25/20 16:00 98.2 118 18 121/64 (83) 99 08/25/20 12:00 97.9 113 18 130/72 (91) 100 Intake and Output 08/25/20 08/26/20 19:00 07:00 Intake Total 900 ml 420 ml Balance 900 ml 420 ml Intake Oral 600 ml IV Total 300 ml 60 ml Other 360 ml # Voids 4 2 Laboratory Tests 08/26/20 08:40: White Blood Count [Pending], Red Blood Count [Pending], Hemoglobin [Pending], Hematocrit [Pending], Mean Corpuscular Volume [Pending], Mean Corpuscular Hemoglobin [Pending], Mean Corpuscular Hemoglobin Concent [Pending], Red Cell Distribution Width [Pending], Platelet Count [Pending], Mean Platelet Volume [Pending], Neutrophils (%) (Auto) [Pending], Lymphocytes (%) (Auto) [Pending], Monocytes (%) (Auto) [Pending], Eosinophils (%) (Auto) [Pending], Basophils (%) (Auto) [Pending], Prothrombin Time [Pending], Prothromb Time International Ratio [Pending], Activated Partial Thromboplast Time [Pending], Sodium Level [Pending], Potassium Level [Pending], Chloride Level [Pending], Carbon Dioxide Level [Pending], Blood Urea Nitrogen [Pending], Creatinine [Pending], Estimat Glomerular Filtration Rate [Pending], Glucose Level [Pending], Uric Acid [Pending], Calcium Level [Pending], Phosphorus Level [Pending], Magnesium Level [Pending], Total Bilirubin [Pending], Aspartate Amino Transf (AST/SGOT) [Pending], Alanine Aminotransferase (ALT/SGPT) [Pending], Alkaline Phosphatase [Pending], Total Protein [Pending], Albumin [Pending], Globulin [Pending] Height (Feet): 5 Height (Inches): 4.00 Weight (Pounds): 200 Objective General Appearance: no apparent distress, alert EENT: PERRL/EOMI Neck: non-tender, normal alignment Cardiovascular: normal rate, regular rhythm Respiratory/Chest: chest wall non-tender, lungs clear Abdomen: distended Extremities: non-tender Edema: no edema noted Generalized Neurologic: alert, oriented x 3 Skin: normal pigmentation Assessment/Plan Assessment/Plan: (1) Abdominal pain (2) Liver cirrhosis Patient to be continued on Tylenol D/w Dr. Hdez and he concurred. Artur Katz Aug 26, 2020 09:12
[2020-08-26] MEDS: Spironolactone 50mg tab ORAL SCH (09:23)
[2020-08-26 09:33] LABS: PHOSPHORUS 1.8 MG/DL (2.5-4.9)
[2020-08-26 09:37] LABS: ALANINE AMINOTRANSFERASE 170 U/L (12-78); ALBUMIN 1.7 G/DL (3.4-5.0); ALBUMIN/GLOBULIN RATIO 0.2 (1.0-2.7); ALKALINE PHOSPHATASE 248 U/L (46-116); ANION GAP 5 mmol/L (5-15); ASPARTATE AMINO TRANSFERASE 461 U/L (15-37); BILIRUBIN,TOTAL 8.7 MG/DL (0.2-1.0); BLOOD UREA NITROGEN 8 mg/dL (7-18); CALCIUM 7.5 MG/DL (8.5-10.1); CARBON DIOXIDE 24 MMOL/L (21-32); CHLORIDE 107 MMOL/L (98-107); CREATININE 0.8 MG/DL (0.55-1.30); POTASSIUM 4.4 MMOL/L (3.5-5.1); SODIUM 136 MMOL/L (136-145)
[2020-08-26 09:39] LABS: BILIRUBIN,DIRECT 5.9 MG/DL (0.0-0.3)
--- NOTE | 2020-08-26 10:34 | Pulmonology Progress Note ---
Subjective ROS Limited/Unobtainable: No Interval Events: None major reported per nursing Constitutional: Reports: no symptoms HEENT: Repors: no symptoms Respiratory: Reports: no symptoms Cardiovascular: Reports: no symptoms Gastrointestinal/Abdominal: Reports: no symptoms Allergies: Coded Allergies: No Known Allergies (Unverified , 08/22/20) Objective Last 24 Hour Vital Signs Date Time Temp Pulse Resp B/P (MAP) Pulse Ox O2 Delivery O2 Flow Rate FiO2 08/26/20 09:00 Room Air 08/26/20 08:00 98.1 108 18 120/73 (89) 100 08/26/20 04:00 97.9 101 20 115/59 (77) 97 08/26/20 00:00 98.4 104 20 107/56 (73) 98 08/25/20 21:00 Room Air 08/25/20 20:00 98.2 109 20 128/72 (90) 99 08/25/20 16:00 98.2 118 18 121/64 (83) 99 08/25/20 12:00 97.9 113 18 130/72 (91) 100 Intake and Output 08/25/20 08/26/20 19:00 07:00 Intake Total 900 ml 420 ml Balance 900 ml 420 ml Intake Oral 600 ml IV Total 300 ml 60 ml Other 360 ml # Voids 4 2 General Appearance: no acute distress HEENT: atraumatic Respiratory: lungs clear Cardiovascular: normal rate Abdomen: distended, tender, other - striae Laboratory Tests 08/26/20 08:40: White Blood Count 7.9, Red Blood Count 2.46L, Hemoglobin 8.3L, Hematocrit 25.2L, Mean Corpuscular Volume 103H, Mean Corpuscular Hemoglobin 33.8H, Mean Corpuscular Hemoglobin Concent 32.9, Red Cell Distribution Width 17.2H, Platelet Count 72L, Mean Platelet Volume 8.4, Neutrophils (%) (Auto) , Lymphocytes (%) (Auto) , Monocytes (%) (Auto) , Eosinophils (%) (Auto) , Basophils (%) (Auto) , Differential Total Cells Counted 100, Neutrophils % (Manual) 57, Lymphocytes % (Manual) 32, Monocytes % (Manual) 10, Eosinophils % (Manual) 1, Basophils % (Manual) 0, Band Neutrophils 0, Platelet Estimate DecreasedL, Platelet Morphology Normal, Hypochromasia 1+, Anisocytosis 1+, Macrocytosis 1+, Prothrombin Time 30.8H, Prothromb Time International Ratio 3.0H, Activated Partial Thromboplast Time 48H, Sodium Level 136, Potassium Level 4.4, Chloride Level 107, Carbon Dioxide Level 24, Anion Gap 5, Blood Urea Nitrogen 8, Creatinine 0.8, Estimat Glomerular Filtration Rate > 60, Glucose Level 117H, Uric Acid 2.0L, Calcium Level 7.5L, Phosphorus Level 1.8L, Magnesium Level 1.8, Total Bilirubin 8.7H, Direct Bilirubin 5.9H, Aspartate Amino Transf (AST/SGOT) 461H, Alanine Aminotransferase (ALT/SGPT) 170H, Alkaline Phosphatase 248H, Total Protein 8.7H, Albumin 1.7L, Globulin 7.0, Albumin/Globulin Ratio 0.2L Current Medications Medications (Trade) Dose Ordered Sig/Emily Route PRN Reason Start Time Stop Time Status Last Admin Dose Admin Acetaminophen (Tylenol) 325 mg Q6H PRN ORAL Mild Pain (Pain Scale 1-3) 08/23/20 16:15 09/22/20 16:14 08/23/20 17:08 Furosemide (Lasix) 40 mg DAILY IV 08/24/20 06:45 09/23/20 06:44 08/26/20 09:22 Iron Sucrose 100 mg/Sodium Chloride 60 ml @ 240 mls/hr BEDTIME IVPB 08/23/20 21:00 08/27/20 21:14 08/25/20 21:18 Lorazepam (Ativan 2mg/ml 1ml) 1 mg Q2H PRN IV delerium tremens/seizure 08/22/20 21:45 08/29/20 21:44 Ondansetron HCl (Zofran) 4 mg Q6H PRN IVP Nausea & Vomiting 08/22/20 21:45 09/21/20 21:44 Pantoprazole (Protonix) 40 mg DAILY ORAL 08/23/20 09:00 09/22/20 08:59 08/26/20 09:22 Potassium Chloride (K-Dur) 40 meq TWICE A DAY ORAL 08/24/20 09:00 11/21/20 17:59 08/26/20 09:22 Spironolactone (Aldactone) 100 mg DAILY ORAL 08/24/20 06:45 09/23/20 06:44 08/26/20 09:23 Assessment/Plan Assessment/Plan 1. DVT ppx - with tachycardia and leg edema -Elevated D-dimer (08/23) - Venous duplex of legs (08/23) negative for DVT -> SCD and ambulate 2. Hyperbilirubinemia, GI following 3. Elevated LFTs, GI following 4. Hypoalbuminemia -Albumin replaced 5. UTI -Follow-up UCx negative - s/p broad spectrum Abx 6. Respiratory distress on arrival -Now saturating well on room air -Monitor for hypoxia and provide supplemental oxygen as needed 7. Small pleural effusion -Monitor effusions for now given normoxemia -We will consider thoracentesis if effusion increases in size 8. Cirrhosis of the liver, ascites -GI following -paracentesis canceled due to small volume on Abd US (08/25) -Outpatient hepatology follow-up on 08/28/2020 per patient 9. Cholelithiasis, GI following 10. Anemia -On IV iron Medically stable for discharge from pulmonary standpoint Noted DC planning The care for this patient was discussed with my supervising physician. Time spent for this case was approximately 31 minutes. Harpal Mares Aug 26, 2020 10:34
--- NOTE | 2020-08-26 10:48 | Cardiac Electrophysiology PN ---
Assessment/Plan Assessment/Plan 1. Shortness of breath due to volume overload. The patient has cirrhosis of the liver. Her INR is 3.2. D-dimer is 11.6. EF 75% On Lasix 40 iv daily and Aldactone 100 daily 2. Cirrhosis of the liver with ascites and with the INR, the patient received FFP and albumin and vitamin K Not enough fluid for paracentesis. 3. History of hepatitis B and alcoholism. Fu by Dr. Zapata. 4. Gallstones. KATHERINE RN and Dr. Morel Subjective Subjective No CP. On Lasix 40 iv daily and Aldactone 100 daily. Paracentesis was cancelled as not enough fluid found by US No events Objective Last 24 Hour Vital Signs Date Time Temp Pulse Resp B/P (MAP) Pulse Ox O2 Delivery O2 Flow Rate FiO2 08/26/20 09:00 Room Air 08/26/20 08:00 98.1 108 18 120/73 (89) 100 08/26/20 04:00 97.9 101 20 115/59 (77) 97 08/26/20 00:00 98.4 104 20 107/56 (73) 98 08/25/20 21:00 Room Air 08/25/20 20:00 98.2 109 20 128/72 (90) 99 08/25/20 16:00 98.2 118 18 121/64 (83) 99 08/25/20 12:00 97.9 113 18 130/72 (91) 100 Intake and Output 08/25/20 08/26/20 19:00 07:00 Intake Total 900 ml 420 ml Balance 900 ml 420 ml Intake Oral 600 ml IV Total 300 ml 60 ml Other 360 ml # Voids 4 2 Laboratory Tests Test 08/26/20 08:40 White Blood Count 7.9 K/UL (4.8-10.8) Red Blood Count 2.46 M/UL (4.20-5.40) L Hemoglobin 8.3 G/DL (12.0-16.0) L Hematocrit 25.2 % (37.0-47.0) L Mean Corpuscular Volume 103 FL (80-99) H Mean Corpuscular Hemoglobin 33.8 PG (27.0-31.0) H Mean Corpuscular Hemoglobin Concent 32.9 G/DL (32.0-36.0) Red Cell Distribution Width 17.2 % (11.6-14.8) H Platelet Count 72 K/UL (150-450) L Mean Platelet Volume 8.4 FL (6.5-10.1) Neutrophils (%) (Auto) % (45.0-75.0) Lymphocytes (%) (Auto) % (20.0-45.0) Monocytes (%) (Auto) % (1.0-10.0) Eosinophils (%) (Auto) % (0.0-3.0) Basophils (%) (Auto) % (0.0-2.0) Differential Total Cells Counted 100 Neutrophils % (Manual) 57 % (45-75) Lymphocytes % (Manual) 32 % (20-45) Monocytes % (Manual) 10 % (1-10) Eosinophils % (Manual) 1 % (0-3) Basophils % (Manual) 0 % (0-2) Band Neutrophils 0 % (0-8) Platelet Estimate Decreased L Platelet Morphology Normal Hypochromasia 1+ Anisocytosis 1+ Macrocytosis 1+ Prothrombin Time 30.8 SEC (9.30-11.50) H Prothromb Time International Ratio 3.0 (0.9-1.1) H Activated Partial Thromboplast Time 48 SEC (23-33) H Sodium Level 136 MMOL/L (136-145) Potassium Level 4.4 MMOL/L (3.5-5.1) Chloride Level 107 MMOL/L (98-107) Carbon Dioxide Level 24 MMOL/L (21-32) Anion Gap 5 mmol/L (5-15) Blood Urea Nitrogen 8 mg/dL (7-18) Creatinine 0.8 MG/DL (0.55-1.30) Estimat Glomerular Filtration Rate > 60 mL/min (>60) Glucose Level 117 MG/DL (74-106) H Uric Acid 2.0 MG/DL (2.6-7.2) L Calcium Level 7.5 MG/DL (8.5-10.1) L Phosphorus Level 1.8 MG/DL (2.5-4.9) L Magnesium Level 1.8 MG/DL (1.8-2.4) Total Bilirubin 8.7 MG/DL (0.2-1.0) H Direct Bilirubin 5.9 MG/DL (0.0-0.3) H Aspartate Amino Transf (AST/SGOT) 461 U/L (15-37) H Alanine Aminotransferase (ALT/SGPT) 170 U/L (12-78) H Alkaline Phosphatase 248 U/L (46-116) H Total Protein 8.7 G/DL (6.4-8.2) H Albumin 1.7 G/DL (3.4-5.0) L Globulin 7.0 g/dL Albumin/Globulin Ratio 0.2 (1.0-2.7) L Objective HEAD AND NECK: No JVD, but she has jaundiced sclerae. LUNGS: Clear. CARDIOVASCULAR: Regular S1 and S2 with no gallop. ABDOMEN: Distended with ascites. EXTREMITIES: 1+ pitting edema. Benjamin Cunningham MD Aug 26, 2020 10:48
--- NOTE | 2020-08-26 11:04 | Nephrology Progress Note ---
Assessment/Plan Problem List: (1) Electrolyte imbalance (2) Anasarca (3) Cirrhosis (4) Anemia (5) Cholelithiasis Assessment Electrolyte imbalance Cirrhosis of the liver, ascites Hepatitis B Previous alcohol dependent Gallstones Anemia Plan August 26: Labs reviewed. Abnormal electrolyte addressed. Medication list reviewed no paracentesis was done. Patient is stable for discharge and follow- up at the liver clinic. August 25: Labs reviewed. Low magnesium and low potassium addressed. Discussed with GI. Continue current management. Stable for discharge from renal standpoint of view. August 24: No labs drawn today. Stable from renal standpoint of view. paracentesis, pending Check AFP albumin infusion diuretic ( lasix 40 mg iv and aldactone 100 mg po) has out patient hepatology fu needs transplant evaluation and hep B treatment vit k given Subjective ROS Limited/Unobtainable: No Constitutional: Reports: malaise Objective Objective Last 24 Hour Vital Signs Date Time Temp Pulse Resp B/P (MAP) Pulse Ox O2 Delivery O2 Flow Rate FiO2 08/26/20 09:00 Room Air 08/26/20 08:00 98.1 108 18 120/73 (89) 100 08/26/20 04:00 97.9 101 20 115/59 (77) 97 08/26/20 00:00 98.4 104 20 107/56 (73) 98 08/25/20 21:00 Room Air 08/25/20 20:00 98.2 109 20 128/72 (90) 99 08/25/20 16:00 98.2 118 18 121/64 (83) 99 08/25/20 12:00 97.9 113 18 130/72 (91) 100 Laboratory Tests Test 08/26/20 08:40 White Blood Count 7.9 K/UL (4.8-10.8) Red Blood Count 2.46 M/UL (4.20-5.40) L Hemoglobin 8.3 G/DL (12.0-16.0) L Hematocrit 25.2 % (37.0-47.0) L Mean Corpuscular Volume 103 FL (80-99) H Mean Corpuscular Hemoglobin 33.8 PG (27.0-31.0) H Mean Corpuscular Hemoglobin Concent 32.9 G/DL (32.0-36.0) Red Cell Distribution Width 17.2 % (11.6-14.8) H Platelet Count 72 K/UL (150-450) L Mean Platelet Volume 8.4 FL (6.5-10.1) Neutrophils (%) (Auto) % (45.0-75.0) Lymphocytes (%) (Auto) % (20.0-45.0) Monocytes (%) (Auto) % (1.0-10.0) Eosinophils (%) (Auto) % (0.0-3.0) Basophils (%) (Auto) % (0.0-2.0) Differential Total Cells Counted 100 Neutrophils % (Manual) 57 % (45-75) Lymphocytes % (Manual) 32 % (20-45) Monocytes % (Manual) 10 % (1-10) Eosinophils % (Manual) 1 % (0-3) Basophils % (Manual) 0 % (0-2) Band Neutrophils 0 % (0-8) Platelet Estimate Decreased L Platelet Morphology Normal Hypochromasia 1+ Anisocytosis 1+ Macrocytosis 1+ Prothrombin Time 30.8 SEC (9.30-11.50) H Prothromb Time International Ratio 3.0 (0.9-1.1) H Activated Partial Thromboplast Time 48 SEC (23-33) H Sodium Level 136 MMOL/L (136-145) Potassium Level 4.4 MMOL/L (3.5-5.1) Chloride Level 107 MMOL/L (98-107) Carbon Dioxide Level 24 MMOL/L (21-32) Anion Gap 5 mmol/L (5-15) Blood Urea Nitrogen 8 mg/dL (7-18) Creatinine 0.8 MG/DL (0.55-1.30) Estimat Glomerular Filtration Rate > 60 mL/min (>60) Glucose Level 117 MG/DL (74-106) H Uric Acid 2.0 MG/DL (2.6-7.2) L Calcium Level 7.5 MG/DL (8.5-10.1) L Phosphorus Level 1.8 MG/DL (2.5-4.9) L Magnesium Level 1.8 MG/DL (1.8-2.4) Total Bilirubin 8.7 MG/DL (0.2-1.0) H Direct Bilirubin 5.9 MG/DL (0.0-0.3) H Aspartate Amino Transf (AST/SGOT) 461 U/L (15-37) H Alanine Aminotransferase (ALT/SGPT) 170 U/L (12-78) H Alkaline Phosphatase 248 U/L (46-116) H Total Protein 8.7 G/DL (6.4-8.2) H Albumin 1.7 G/DL (3.4-5.0) L Globulin 7.0 g/dL Albumin/Globulin Ratio 0.2 (1.0-2.7) L Intake and Output 08/25/20 08/26/20 19:00 07:00 Intake Total 900 ml 420 ml Balance 900 ml 420 ml Intake Oral 600 ml IV Total 300 ml 60 ml Other 360 ml # Voids 4 2 Current Medications Medications (Trade) Dose Ordered Sig/Emily Route PRN Reason Start Time Stop Time Status Last Admin Dose Admin Acetaminophen (Tylenol) 325 mg Q6H PRN ORAL Mild Pain (Pain Scale 1-3) 08/23/20 16:15 09/22/20 16:14 08/23/20 17:08 Furosemide (Lasix) 40 mg DAILY IV 08/24/20 06:45 09/23/20 06:44 08/26/20 09:22 Iron Sucrose 100 mg/Sodium Chloride 60 ml @ 240 mls/hr BEDTIME IVPB 08/23/20 21:00 08/27/20 21:14 08/25/20 21:18 Lorazepam (Ativan 2mg/ml 1ml) 1 mg Q2H PRN IV delerium tremens/seizure 08/22/20 21:45 08/29/20 21:44 Ondansetron HCl (Zofran) 4 mg Q6H PRN IVP Nausea & Vomiting 08/22/20 21:45 09/21/20 21:44 Pantoprazole (Protonix) 40 mg DAILY ORAL 08/23/20 09:00 09/22/20 08:59 08/26/20 09:22 Potassium Chloride (K-Dur) 40 meq TWICE A DAY ORAL 08/24/20 09:00 11/21/20 17:59 08/26/20 09:22 Spironolactone (Aldactone) 100 mg DAILY ORAL 08/24/20 06:45 09/23/20 06:44 08/26/20 09:23 Laboratory Tests 08/26/20 08:40: White Blood Count 7.9, Red Blood Count 2.46L, Hemoglobin 8.3L, Hematocrit 25.2L, Mean Corpuscular Volume 103H, Mean Corpuscular Hemoglobin 33.8H, Mean Corpuscular Hemoglobin Concent 32.9, Red Cell Distribution Width 17.2H, Platelet Count 72L, Mean Platelet Volume 8.4, Neutrophils (%) (Auto) , Lymphocytes (%) (Auto) , Monocytes (%) (Auto) , Eosinophils (%) (Auto) , Basophils (%) (Auto) , Differential Total Cells Counted 100, Neutrophils % (Manual) 57, Lymphocytes % (Manual) 32, Monocytes % (Manual) 10, Eosinophils % (Manual) 1, Basophils % (Manual) 0, Band Neutrophils 0, Platelet Estimate DecreasedL, Platelet Morphology Normal, Hypochromasia 1+, Anisocytosis 1+, Macrocytosis 1+, Prothrombin Time 30.8H, Prothromb Time International Ratio 3.0H, Activated Partial Thromboplast Time 48H, Sodium Level 136, Potassium Level 4.4, Chloride Level 107, Carbon Dioxide Level 24, Anion Gap 5, Blood Urea Nitrogen 8, Creatinine 0.8, Estimat Glomerular Filtration Rate > 60, Glucose Level 117H, Uric Acid 2.0L, Calcium Level 7.5L, Phosphorus Level 1.8L, Magnesium Level 1.8, Total Bilirubin 8.7H, Direct Bilirubin 5.9H, Aspartate Amino Transf (AST/SGOT) 461H, Alanine Aminotransferase (ALT/SGPT) 170H, Alkaline Phosphatase 248H, Total Protein 8.7H, Albumin 1.7L, Globulin 7.0, Albumin/Globulin Ratio 0.2L Height (Feet): 5 Height (Inches): 4.00 Weight (Pounds): 200 General Appearance: no apparent distress Cardiovascular: tachycardia Respiratory/Chest: decreased breath sounds Abdomen: distended Sidney Morel MD Aug 26, 2020 11:04
--- NOTE | 2020-08-26 11:28 | Infectious Diseases Prog Note ---
Assessment/Plan Assessment/Plan IMPRESSION: Cirrhosis of liver, Hepatitis B, Anemia, Thrombocytopenia, Acidosis at the time of admission. Small ascites RECOMMENDATION: Observe off antibiotic. Will f/u hepatitis panel Clear for discharge Subjective ROS Limited/Unobtainable: Yes Allergies: Coded Allergies: No Known Allergies (Unverified , 08/22/20) Objective Last 24 Hour Vital Signs Date Time Temp Pulse Resp B/P (MAP) Pulse Ox O2 Delivery O2 Flow Rate FiO2 08/26/20 09:00 Room Air 08/26/20 08:00 98.1 108 18 120/73 (89) 100 08/26/20 04:00 97.9 101 20 115/59 (77) 97 08/26/20 00:00 98.4 104 20 107/56 (73) 98 08/25/20 21:00 Room Air 08/25/20 20:00 98.2 109 20 128/72 (90) 99 08/25/20 16:00 98.2 118 18 121/64 (83) 99 08/25/20 12:00 97.9 113 18 130/72 (91) 100 Height (Feet): 5 Height (Inches): 4.00 Weight (Pounds): 200 General Appearance: no acute distress HEENT: mucous membranes moist Respiratory/Chest: lungs clear Cardiovascular: normal rate Abdomen: soft, non tender Extremities: no edema Neurologic/Psychiatric: other - sleeping Laboratory Tests Test 08/26/20 08:40 White Blood Count 7.9 K/UL (4.8-10.8) Red Blood Count 2.46 M/UL (4.20-5.40) L Hemoglobin 8.3 G/DL (12.0-16.0) L Hematocrit 25.2 % (37.0-47.0) L Mean Corpuscular Volume 103 FL (80-99) H Mean Corpuscular Hemoglobin 33.8 PG (27.0-31.0) H Mean Corpuscular Hemoglobin Concent 32.9 G/DL (32.0-36.0) Red Cell Distribution Width 17.2 % (11.6-14.8) H Platelet Count 72 K/UL (150-450) L Mean Platelet Volume 8.4 FL (6.5-10.1) Neutrophils (%) (Auto) % (45.0-75.0) Lymphocytes (%) (Auto) % (20.0-45.0) Monocytes (%) (Auto) % (1.0-10.0) Eosinophils (%) (Auto) % (0.0-3.0) Basophils (%) (Auto) % (0.0-2.0) Differential Total Cells Counted 100 Neutrophils % (Manual) 57 % (45-75) Lymphocytes % (Manual) 32 % (20-45) Monocytes % (Manual) 10 % (1-10) Eosinophils % (Manual) 1 % (0-3) Basophils % (Manual) 0 % (0-2) Band Neutrophils 0 % (0-8) Platelet Estimate Decreased L Platelet Morphology Normal Hypochromasia 1+ Anisocytosis 1+ Macrocytosis 1+ Prothrombin Time 30.8 SEC (9.30-11.50) H Prothromb Time International Ratio 3.0 (0.9-1.1) H Activated Partial Thromboplast Time 48 SEC (23-33) H Sodium Level 136 MMOL/L (136-145) Potassium Level 4.4 MMOL/L (3.5-5.1) Chloride Level 107 MMOL/L (98-107) Carbon Dioxide Level 24 MMOL/L (21-32) Anion Gap 5 mmol/L (5-15) Blood Urea Nitrogen 8 mg/dL (7-18) Creatinine 0.8 MG/DL (0.55-1.30) Estimat Glomerular Filtration Rate > 60 mL/min (>60) Glucose Level 117 MG/DL (74-106) H Uric Acid 2.0 MG/DL (2.6-7.2) L Calcium Level 7.5 MG/DL (8.5-10.1) L Phosphorus Level 1.8 MG/DL (2.5-4.9) L Magnesium Level 1.8 MG/DL (1.8-2.4) Total Bilirubin 8.7 MG/DL (0.2-1.0) H Direct Bilirubin 5.9 MG/DL (0.0-0.3) H Aspartate Amino Transf (AST/SGOT) 461 U/L (15-37) H Alanine Aminotransferase (ALT/SGPT) 170 U/L (12-78) H Alkaline Phosphatase 248 U/L (46-116) H Total Protein 8.7 G/DL (6.4-8.2) H Albumin 1.7 G/DL (3.4-5.0) L Globulin 7.0 g/dL Albumin/Globulin Ratio 0.2 (1.0-2.7) L Current Medications Medications (Trade) Dose Ordered Sig/Emily Route PRN Reason Start Time Stop Time Status Last Admin Dose Admin Acetaminophen (Tylenol) 325 mg Q6H PRN ORAL Mild Pain (Pain Scale 1-3) 08/23/20 16:15 09/22/20 16:14 08/23/20 17:08 Furosemide (Lasix) 40 mg DAILY IV 08/24/20 06:45 09/23/20 06:44 08/26/20 09:22 Iron Sucrose 100 mg/Sodium Chloride 60 ml @ 240 mls/hr BEDTIME IVPB 08/23/20 21:00 08/27/20 21:14 08/25/20 21:18 Lorazepam (Ativan 2mg/ml 1ml) 1 mg Q2H PRN IV delerium tremens/seizure 08/22/20 21:45 08/29/20 21:44 Ondansetron HCl (Zofran) 4 mg Q6H PRN IVP Nausea & Vomiting 08/22/20 21:45 09/21/20 21:44 Pantoprazole (Protonix) 40 mg DAILY ORAL 08/23/20 09:00 09/22/20 08:59 08/26/20 09:22 Phosphorus (Phospha 250 Neutral) 500 mg THREE TIMES A DAY ORAL 08/26/20 13:00 09/25/20 12:59 Potassium Chloride (K-Dur) 40 meq TWICE A DAY ORAL 08/24/20 09:00 11/21/20 17:59 08/26/20 09:22 Spironolactone (Aldactone) 100 mg DAILY ORAL 08/24/20 06:45 09/23/20 06:44 08/26/20 09:23 Elijah Resendiz MD Aug 26, 2020 11:28
[2020-08-26 12:00] VITALS: BP 119/69
--- NOTE | 2020-08-26 13:14 | General Progress Note ---
Subjective ROS Limited/Unobtainable: Yes Allergies: Coded Allergies: No Known Allergies (Unverified , 08/22/20) Objective Last 24 Hour Vital Signs Date Time Temp Pulse Resp B/P (MAP) Pulse Ox O2 Delivery O2 Flow Rate FiO2 08/26/20 09:00 Room Air 08/26/20 08:00 98.1 108 18 120/73 (89) 100 08/26/20 04:00 97.9 101 20 115/59 (77) 97 08/26/20 00:00 98.4 104 20 107/56 (73) 98 08/25/20 21:00 Room Air 08/25/20 20:00 98.2 109 20 128/72 (90) 99 08/25/20 16:00 98.2 118 18 121/64 (83) 99 Intake and Output 08/25/20 08/26/20 19:00 07:00 Intake Total 900 ml 420 ml Balance 900 ml 420 ml Intake Oral 600 ml IV Total 300 ml 60 ml Other 360 ml # Voids 4 2 Laboratory Tests 08/26/20 08:40: White Blood Count 7.9, Red Blood Count 2.46L, Hemoglobin 8.3L, Hematocrit 25.2L, Mean Corpuscular Volume 103H, Mean Corpuscular Hemoglobin 33.8H, Mean Corpuscular Hemoglobin Concent 32.9, Red Cell Distribution Width 17.2H, Platelet Count 72L, Mean Platelet Volume 8.4, Neutrophils (%) (Auto) , Lymphocytes (%) (Auto) , Monocytes (%) (Auto) , Eosinophils (%) (Auto) , Basophils (%) (Auto) , Differential Total Cells Counted 100, Neutrophils % (Manual) 57, Lymphocytes % (Manual) 32, Monocytes % (Manual) 10, Eosinophils % (Manual) 1, Basophils % (Manual) 0, Band Neutrophils 0, Platelet Estimate DecreasedL, Platelet Morphology Normal, Hypochromasia 1+, Anisocytosis 1+, Macrocytosis 1+, Prothrombin Time 30.8H, Prothromb Time International Ratio 3.0H, Activated Partial Thromboplast Time 48H, Sodium Level 136, Potassium Level 4.4, Chloride Level 107, Carbon Dioxide Level 24, Anion Gap 5, Blood Urea Nitrogen 8, Creatinine 0.8, Estimat Glomerular Filtration Rate > 60, Glucose Level 117H, Uric Acid 2.0L, Calcium Level 7.5L, Phosphorus Level 1.8L, Magnesium Level 1.8, Total Bilirubin 8.7H, Direct Bilirubin 5.9H, Aspartate Amino Transf (AST/SGOT) 461H, Alanine Aminotransferase (ALT/SGPT) 170H, Alkaline Phosphatase 248H, Total Protein 8.7H, Albumin 1.7L, Globulin 7.0, Albumin/Globulin Ratio 0.2L Height (Feet): 5 Height (Inches): 4.00 Weight (Pounds): 200 General Appearance: no apparent distress EENT: normal ENT inspection Neck: supple Cardiovascular: normal rate Respiratory/Chest: decreased breath sounds Abdomen: normal bowel sounds, non tender, soft Extremities: non-tender Assessment/Plan Assessment/Plan: hep B cirrhosis ascites gallstones coagulopathy MELD score 27 paracentesis, >>> not enough to tap AFP albumin diuretic ( lasix 40 mg iv and aldactone 100 mg po) has out patient hepatology fu needs transplant evaluation and hep B treatment as out patient Faraz Zapata MD Aug 26, 2020 13:14
[2020-08-26] MEDS: Phospha 250 Neutral tab ORAL SCH ×2 (14:13→18:36)
[2020-08-26 16:00] VITALS: BP 109/56
--- NOTE | 2020-08-26 17:12 | NUR ---
[employer] FAXED TO [facility] #[phone] fax# [phone]
--- NOTE | 2020-08-26 19:20 | General Progress Note ---
Subjective ROS Limited/Unobtainable: Yes Allergies: Coded Allergies: No Known Allergies (Unverified , 08/22/20) Objective Last 24 Hour Vital Signs Date Time Temp Pulse Resp B/P (MAP) Pulse Ox O2 Delivery O2 Flow Rate FiO2 08/26/20 16:00 98.6 106 18 109/56 (73) 96 08/26/20 12:00 97.9 109 17 119/69 (86) 100 08/26/20 09:00 Room Air 08/26/20 08:00 98.1 108 18 120/73 (89) 100 08/26/20 04:00 97.9 101 20 115/59 (77) 97 08/26/20 00:00 98.4 104 20 107/56 (73) 98 08/25/20 21:00 Room Air 08/25/20 20:00 98.2 109 20 128/72 (90) 99 Intake and Output 08/25/20 08/26/20 19:00 07:00 Intake Total 900 ml 420 ml Balance 900 ml 420 ml Intake Oral 600 ml IV Total 300 ml 60 ml Other 360 ml # Voids 4 2 Laboratory Tests 08/26/20 08:40: White Blood Count 7.9, Red Blood Count 2.46L, Hemoglobin 8.3L, Hematocrit 25.2L, Mean Corpuscular Volume 103H, Mean Corpuscular Hemoglobin 33.8H, Mean Corpuscular Hemoglobin Concent 32.9, Red Cell Distribution Width 17.2H, Platelet Count 72L, Mean Platelet Volume 8.4, Neutrophils (%) (Auto) , Lymphocytes (%) (Auto) , Monocytes (%) (Auto) , Eosinophils (%) (Auto) , Basophils (%) (Auto) , Differential Total Cells Counted 100, Neutrophils % (Manual) 57, Lymphocytes % (Manual) 32, Monocytes % (Manual) 10, Eosinophils % (Manual) 1, Basophils % (Manual) 0, Band Neutrophils 0, Platelet Estimate DecreasedL, Platelet Morphology Normal, Hypochromasia 1+, Anisocytosis 1+, Macrocytosis 1+, Prothrombin Time 30.8H, Prothromb Time International Ratio 3.0H, Activated Partial Thromboplast Time 48H, Sodium Level 136, Potassium Level 4.4, Chloride Level 107, Carbon Dioxide Level 24, Anion Gap 5, Blood Urea Nitrogen 8, Creatinine 0.8, Estimat Glomerular Filtration Rate > 60, Glucose Level 117H, Uric Acid 2.0L, Calcium Level 7.5L, Phosphorus Level 1.8L, Magnesium Level 1.8, Total Bilirubin 8.7H, Direct Bilirubin 5.9H, Aspartate Amino Transf (AST/SGOT) 461H, Alanine Aminotransferase (ALT/SGPT) 170H, Alkaline Phosphatase 248H, Total Protein 8.7H, Albumin 1.7L, Globulin 7.0, Albumin/Globulin Ratio 0.2L Height (Feet): 5 Height (Inches): 4.00 Weight (Pounds): 200 Assessment/Plan Problem List: (1) Hepatitis B ICD Codes: B19.10 - Unspecified viral hepatitis B without hepatic coma SNOMED: 23898692, 462711631 (2) Pleural effusion, right ICD Codes: J90 - Pleural effusion, not elsewhere classified SNOMED: 16691520 (3) Peripheral edema ICD Codes: R60.9 - Edema, unspecified SNOMED: 746819181 (4) Anasarca ICD Codes: R60.1 - Generalized edema SNOMED: 053594063, 218826663 (5) Cirrhosis ICD Codes: K74.60 - Unspecified cirrhosis of liver SNOMED: 62864796 (6) Electrolyte imbalance ICD Codes: E87.8 - Other disorders of electrolyte and fluid balance, not elsewhere classified SNOMED: 574507131 (7) Anemia ICD Codes: D64.9 - Anemia, unspecified SNOMED: 960726752 (8) Migraine ICD Codes: G43.909 - Migraine, unspecified, not intractable, without status migrainosus SNOMED: 78316732 (9) Pleural effusion ICD Codes: J90 - Pleural effusion, not elsewhere classified SNOMED: 49297675 (10) UTI (urinary tract infection) ICD Codes: N39.0 - Urinary tract infection, site not specified SNOMED: 82405397 Status: progressing Assessment/Plan: anemia stable h/h less distended abdomin no seizure etoh abuse asictes paracentesis Norris Nolan MD Aug 26, 2020 19:20
[2020-08-26 20:00] VITALS: BP 104/55
--- NOTE | 2020-08-26 20:09 | NUR ---
NURSE HAND-OFF: Important Events on Shift: Educated patient on potassium sparing diuretics, lasix, potassium replacement, on phosphaneutral, as well as some basic fluid volume shift, oncotic pressure in relation to albumin. Patient Status: In no apparent distress. Diet: Low sodium Pending Orders: am labs Pending Results/Labs:am lab, CMP Pending MD notification:N/A Latest Vital Signs: Temperature 98.6 , Pulse 106 , B/P 109 /56 , Respiratory Rate 18 , O2 SAT 96 , Room Air, O2 Flow Rate . Vital Sign Comment: N/A Latest Marx Fall Score: 0 Fall Risk: Low Risk Safety Measures: Call light Within Reach, Bed Alarm Zone 1, Side Rails Side Rails x2, Bed position Low and Locked. Fall Precautions: Patient Fall Education Report given to Temitope Bianchi RN.
--- NOTE | 2020-08-26 20:10 | NUR ---
NURSE NOTES: Received patient in no apparent distress. A&OX4. IV site patent and intact. Bed in lowest position. Call light within reach. Will continue to monitor.
[2020-08-26] MEDS: Iron Sucrose 100 MG in NS 55 ML IVPB SCH (20:26)
[2020-08-27] VITALS: BP 111/63
[2020-08-27 04:00] VITALS: BP 113/72
[2020-08-27 06:44] LABS: HEMOGLOBIN 9.2 G/DL (12.0-16.0); MEAN CORPUSCULAR VOLUME 104 FL (80-99); PLATELET COUNT 87 K/UL (150-450); RED BLOOD COUNT 2.77 M/UL (4.20-5.40); RED CELL DISTRIBUTION WIDTH 17.4 % (11.6-14.8)
[2020-08-27 07:11] LABS: ALANINE AMINOTRANSFERASE 172 U/L (12-78); ALBUMIN 1.7 G/DL (3.4-5.0); ALBUMIN/GLOBULIN RATIO 0.2 (1.0-2.7); ALKALINE PHOSPHATASE 264 U/L (46-116); ANION GAP 3 mmol/L (5-15); ASPARTATE AMINO TRANSFERASE 434 U/L (15-37); BILIRUBIN,TOTAL 8.5 MG/DL (0.2-1.0); BLOOD UREA NITROGEN 7 mg/dL (7-18); CALCIUM 7.7 MG/DL (8.5-10.1); CARBON DIOXIDE 25 MMOL/L (21-32); CHLORIDE 107 MMOL/L (98-107); CREATININE 0.8 MG/DL (0.55-1.30); POTASSIUM 4.3 MMOL/L (3.5-5.1); SODIUM 135 MMOL/L (136-145)
--- NOTE | 2020-08-27 07:18 | NUR ---
NURSE HAND-OFF: Important Events on Shift: Patient Status: Diet: Low sodium Pending Orders: Pending Results/Labs: Pending MD notification: Latest Vital Signs: Temperature 98.1 , Pulse 95 , B/P 113 /72 , Respiratory Rate 17 , O2 SAT 98 , Room Air, O2 Flow Rate . Vital Sign Comment: Latest Marx Fall Score: 0 Fall Risk: Low Risk Safety Measures: Call light Within Reach, Bed Alarm Zone 1, Side Rails Side Rails x2, Bed position Low and Locked. Fall Precautions: Patient Fall Education Report given to Brandy JENKINS
[2020-08-27 07:23] LABS: BILIRUBIN,DIRECT 6.1 MG/DL (0.0-0.3)
[2020-08-27 08:00] VITALS: BP 109/71
[2020-08-27] MEDS: Phospha 250 Neutral tab ORAL SCH ×3 (08:19→17:22)
[2020-08-27] MEDS: Spironolactone 50mg tab ORAL SCH (08:20)
--- NOTE | 2020-08-27 08:27 | Pulmonology Progress Note ---
Subjective ROS Limited/Unobtainable: Yes Interval Events: None major reported per nursing Constitutional: Reports: no symptoms HEENT: Repors: no symptoms Respiratory: Reports: no symptoms Cardiovascular: Reports: no symptoms Gastrointestinal/Abdominal: Reports: no symptoms Allergies: Coded Allergies: No Known Allergies (Unverified , 08/22/20) Objective Last 24 Hour Vital Signs Date Time Temp Pulse Resp B/P (MAP) Pulse Ox O2 Delivery O2 Flow Rate FiO2 08/27/20 08:00 97.9 10 17 109/71 (84) 98 08/27/20 04:00 98.1 95 17 113/72 (86) 98 08/27/20 00:00 98.2 96 18 111/63 (79) 96 08/26/20 21:00 Room Air 08/26/20 20:00 97.9 104 20 104/55 (71) 95 08/26/20 16:00 98.6 106 18 109/56 (73) 96 08/26/20 12:00 97.9 109 17 119/69 (86) 100 08/26/20 09:00 Room Air Intake and Output 08/26/20 08/27/20 19:00 07:00 Intake Total 1000 ml 540 ml Balance 1000 ml 540 ml Intake Oral 1000 ml 480 ml IV Total 60 ml # Voids 3 General Appearance: no acute distress HEENT: atraumatic Respiratory: lungs clear Cardiovascular: normal rate Abdomen: distended, tender, other - striae Laboratory Tests 08/26/20 08:40: White Blood Count 7.9, Red Blood Count 2.46L, Hemoglobin 8.3L, Hematocrit 25.2L, Mean Corpuscular Volume 103H, Mean Corpuscular Hemoglobin 33.8H, Mean Corpuscular Hemoglobin Concent 32.9, Red Cell Distribution Width 17.2H, Platelet Count 72L, Mean Platelet Volume 8.4, Neutrophils (%) (Auto) , Lymphocytes (%) (Auto) , Monocytes (%) (Auto) , Eosinophils (%) (Auto) , Basophils (%) (Auto) , Differential Total Cells Counted 100, Neutrophils % (Manual) 57, Lymphocytes % (Manual) 32, Monocytes % (Manual) 10, Eosinophils % (Manual) 1, Basophils % (Manual) 0, Band Neutrophils 0, Platelet Estimate DecreasedL, Platelet Morphology Normal, Hypochromasia 1+, Anisocytosis 1+, Macrocytosis 1+, Proth rombin Time 30.8H, Prothromb Time International Ratio 3.0H, Activated Partial Thromboplast Time 48H, Sodium Level 136, Potassium Level 4.4, Chloride Level 107, Carbon Dioxide Level 24, Anion Gap 5, Blood Urea Nitrogen 8, Creatinine 0.8, Estimat Glomerular Filtration Rate > 60, Glucose Level 117H, Uric Acid 2.0L , Calcium Level 7.5L, Phosphorus Level 1.8L, Magnesium Level 1.8, Total Bilirubin 8.7H, Direct Bilirubin 5.9H, Aspartate Amino Transf (AST/SGOT) 461H, Alanine Aminotransferase (ALT/SGPT) 170H, Alkaline Phosphatase 248H, Total Protein 8.7H, Albumin 1.7L, Globulin 7.0, Albumin/Globulin Ratio 0.2L 08/27/20 06:10: White Blood Count 8.0, Red Blood Count 2.77L, Hemoglobin 9.2L, Hematocrit 29.0L, Mean Corpuscular Volume 104H, Mean Corpuscular Hemoglobin 33.3H, Mean Corpuscular Hemoglobin Concent 31.8L, Red Cell Distribution Width 17.4H, Platelet Count 87L, Mean Platelet Volume 8.9, Neutrophils (%) (Auto) , Lymphocytes (%) (Auto) , Monocytes (%) (Auto) , Eosinophils (%) (Auto) , Basophils (%) (Auto) , Neutrophils % (Manual) [Pending], Lymphocytes % (Manual) [Pending], Platelet Estimate [Pending], Platelet Morphology [Pending], Sodium Level 135L, Potassium Level 4.3, Chloride Level 107, Carbon Dioxide Level 25, Anion Gap 3L, Blood Urea Nitrogen 7, Creatinine 0.8, Estimat Glomerular Filtration Rate > 60, Glucose Level 90, Calcium Level 7.7L, Total Bilirubin 8.5H , Direct Bilirubin 6.1H, Aspartate Amino Transf (AST/SGOT) 434H, Alanine Aminotransferase (ALT/SGPT) 172H, Alkaline Phosphatase 264H, Total Protein 9.1H, Albumin 1.7L, Globulin 7.4, Albumin/Globulin Ratio 0.2L Current Medications Medications (Trade) Dose Ordered Sig/Emily Route PRN Reason Start Time Stop Time Status Last Admin Dose Admin Acetaminophen (Tylenol) 325 mg Q6H PRN ORAL Mild Pain (Pain Scale 1-3) 08/23/20 16:15 09/22/20 16:14 08/23/20 17:08 Furosemide (Lasix) 40 mg DAILY IV 08/24/20 06:45 09/23/20 06:44 08/27/20 08:20 Iron Sucrose 100 mg/Sodium Chloride 60 ml @ 240 mls/hr BEDTIME IVPB 08/23/20 21:00 08/27/20 21:14 08/26/20 20:26 Lorazepam (Ativan 2mg/ml 1ml) 1 mg Q2H PRN IV delerium tremens/seizure 08/22/20 21:45 08/29/20 21:44 Ondansetron HCl (Zofran) 4 mg Q6H PRN IVP Nausea & Vomiting 08/22/20 21:45 09/21/20 21:44 Pantoprazole (Protonix) 40 mg DAILY ORAL 08/23/20 09:00 09/22/20 08:59 08/27/20 08:19 Phosphorus (Phospha 250 Neutral) 500 mg THREE TIMES A DAY ORAL 08/26/20 13:00 09/25/20 12:59 08/27/20 08:19 Potassium Chloride (K-Dur) 40 meq TWICE A DAY ORAL 08/24/20 09:00 11/21/20 17:59 08/27/20 08:19 Spironolactone (Aldactone) 100 mg DAILY ORAL 08/24/20 06:45 09/23/20 06:44 08/27/20 08:20 Assessment/Plan Assessment/Plan 1. DVT ppx -Elevated D-dimer (08/23) - Venous duplex of legs (08/23) negative for DVT -> SCD and ambulate 2. Hyperbilirubinemia, GI following 3. Elevated LFTs, GI following 4. Hypoalbuminemia, treated 5. UTI -Follow-up UCx negative - s/p broad spectrum Abx 6. Respiratory distress on arrival -Now saturating well on room air -Monitor for hypoxia and provide supplemental oxygen as needed 7. Small pleural effusion -Monitor effusions for now given normoxemia -We will consider thoracentesis if effusion increases in size 8. Cirrhosis of the liver, ascites -GI following -paracentesis canceled due to small volume on Abd US (08/25) -Outpatient hepatology follow-up on 08/28/2020 per patient 9. Cholelithiasis, GI following 10. Anemia -On IV iron Medically stable for discharge from pulmonary standpoint Noted DC planning The care for this patient was discussed with my supervising physician. Time spent for this case was approximately 31 minutes. Harpal Mares Aug 27, 2020 08:27
--- NOTE | 2020-08-27 09:07 | Hematology/Onc Progress Note ---
Assessment/Plan Assessment/Plan Assessment/Plan # Pancytopenia is related to hx of alcohol use and early cirrhosis --> imaging has been noted --> get para as needed, abd distension --> inr correct with ffp and vit k --> outpatient liver specialist recommended and dw her --> ALSO started on iv iron --> 4 units ffp 08/25 # Coagulopathy due to liver disease/hepatitis B --> ffp and vit k correct her inr --> transfuse prn # Hepatitis B --> outpatient eval --> transplant eval outpatient # Hyperbilirubinemia, GI following # Elevated LFTs, GI following # Hypoalbuminemia # UTI # Respiratory distress on arrival # Small pleural effusion # Cirrhosis of the liver, ascites # Cholelithiasis, GI following Appreciate consultation and nico Rn Subjective Constitutional: Denies: no symptoms, chills, fever, malaise, weakness, other HEENT: Denies: no symptoms, eye pain, blurred vision, tearing, double vision, ear pain, ear discharge, nose pain, nose congestion, throat pain, throat swelling, mouth pain, mouth swelling, other Cardiovascular: Denies: no symptoms, chest pain, edema, irregular heart rate, lightheadedness, palpitations, syncope, other Respiratory: Denies: no symptoms, cough, shortness of breath, SOB with excertion, SOB at rest, sputum, wheezing, other Gastrointestinal/Abdominal: Denies: no symptoms, abdomen distended, abdominal pain, black stools, tarry stools, blood in stool, constipated, diarrhea, difficulty swallowing, nausea, poor appetite, poor fluid intake, rectal bleeding, vomiting, other Genitourinary: Denies: no symptoms, burning, discharge, frequency, flank pain, hematuria, incontinence, pain, urgency, other Neurologic/Psychiatric: Denies: no symptoms, anxiety, depressed, emotional problems, headache, numbness, paresthesia, pre-existing deficit, seizure, tingling, tremors, weakness, other Allergies: Coded Allergies: No Known Allergies (Unverified , 08/22/20) Subjective 08/25 to get para and prior to that ffp, labs are noted 08/26 para as per gi, labs are pending from the am 08/27 labs reviewed, meds noted, per gi care, nico rn Objective Objective Current Medications Medications (Trade) Dose Ordered Sig/Emily Route PRN Reason Start Time Stop Time Status Last Admin Dose Admin Acetaminophen (Tylenol) 325 mg Q6H PRN ORAL Mild Pain (Pain Scale 1-3) 08/23/20 16:15 09/22/20 16:14 08/23/20 17:08 Furosemide (Lasix) 40 mg DAILY IV 08/24/20 06:45 09/23/20 06:44 08/27/20 08:20 Iron Sucrose 100 mg/Sodium Chloride 60 ml @ 240 mls/hr BEDTIME IVPB 08/23/20 21:00 08/27/20 21:14 08/26/20 20:26 Lorazepam (Ativan 2mg/ml 1ml) 1 mg Q2H PRN IV delerium tremens/seizure 08/22/20 21:45 08/29/20 21:44 Ondansetron HCl (Zofran) 4 mg Q6H PRN IVP Nausea & Vomiting 08/22/20 21:45 09/21/20 21:44 Pantoprazole (Protonix) 40 mg DAILY ORAL 08/23/20 09:00 09/22/20 08:59 08/27/20 08:19 Phosphorus (Phospha 250 Neutral) 500 mg THREE TIMES A DAY ORAL 08/26/20 13:00 09/25/20 12:59 08/27/20 08:19 Potassium Chloride (K-Dur) 40 meq TWICE A DAY ORAL 08/24/20 09:00 11/21/20 17:59 08/27/20 08:19 Spironolactone (Aldactone) 100 mg DAILY ORAL 08/24/20 06:45 09/23/20 06:44 08/27/20 08:20 Last 24 Hour Vital Signs Date Time Temp Pulse Resp B/P (MAP) Pulse Ox O2 Delivery O2 Flow Rate FiO2 08/27/20 08:00 97.9 10 17 109/71 (84) 98 08/27/20 04:00 98.1 95 17 113/72 (86) 98 08/27/20 00:00 98.2 96 18 111/63 (79) 96 08/26/20 21:00 Room Air 08/26/20 20:00 97.9 104 20 104/55 (71) 95 08/26/20 16:00 98.6 106 18 109/56 (73) 96 08/26/20 12:00 97.9 109 17 119/69 (86) 100 08/26/20 09:00 Room Air 08/26/20 08:00 98.1 108 18 120/73 (89) 100 08/26/20 04:00 97.9 101 20 115/59 (77) 97 08/26/20 00:00 98.4 104 20 107/56 (73) 98 08/25/20 21:00 Room Air 08/25/20 20:00 98.2 109 20 128/72 (90) 99 08/25/20 16:00 98.2 118 18 121/64 (83) 99 08/25/20 12:00 97.9 113 18 130/72 (91) 100 Intake and Output 08/26/20 08/27/20 19:00 07:00 Intake Total 1000 ml 540 ml Balance 1000 ml 540 ml Intake Oral 1000 ml 480 ml IV Total 60 ml # Voids 3 Labs Test 08/25/20 05:35 08/26/20 08:40 08/27/20 06:10 White Blood Count 6.2 K/UL (4.8-10.8) 7.9 K/UL (4.8-10.8) 8.0 K/UL (4.8-10.8) Red Blood Count 2.43 M/UL (4.20-5.40) 2.46 M/UL (4.20-5.40) 2.77 M/UL (4.20-5.40) Hemoglobin 8.0 G/DL (12.0-16.0) 8.3 G/DL (12.0-16.0) 9.2 G/DL (12.0-16.0) Hematocrit 25.0 % (37.0-47.0) 25.2 % (37.0-47.0) 29.0 % (37.0-47.0) Mean Corpuscular Volume 103 FL (80-99) 103 FL (80-99) 104 FL (80-99) Mean Corpuscular Hemoglobin 32.8 PG (27.0-31.0) 33.8 PG (27.0-31.0) 33.3 PG (27.0-31.0) Mean Corpuscular Hemoglobin Concent 31.8 G/DL (32.0-36.0) 32.9 G/DL (32.0-36.0) 31.8 G/DL (32.0-36.0) Red Cell Distribution Width 16.6 % (11.6-14.8) 17.2 % (11.6-14.8) 17.4 % (11.6-14.8) Platelet Count 84 K/UL (150-450) 72 K/UL (150-450) 87 K/UL (150-450) Mean Platelet Volume 8.1 FL (6.5-10.1) 8.4 FL (6.5-10.1) 8.9 FL (6.5-10.1) Neutrophils (%) (Auto) % (45.0-75.0) % (45.0-75.0) % (45.0-75.0) Lymphocytes (%) (Auto) % (20.0-45.0) % (20.0-45.0) % (20.0-45.0) Monocytes (%) (Auto) % (1.0-10.0) % (1.0-10.0) % (1.0-10.0) Eosinophils (%) (Auto) % (0.0-3.0) % (0.0-3.0) % (0.0-3.0) Basophils (%) (Auto) % (0.0-2.0) % (0.0-2.0) % (0.0-2.0) Differential Total Cells Counted 100 100 Neutrophils % (Manual) 64 % (45-75) 57 % (45-75) Lymphocytes % (Manual) 23 % (20-45) 32 % (20-45) Monocytes % (Manual) 10 % (1-10) 10 % (1-10) Eosinophils % (Manual) 3 % (0-3) 1 % (0-3) Basophils % (Manual) 0 % (0-2) 0 % (0-2) Band Neutrophils 0 % (0-8) 0 % (0-8) Platelet Estimate Decreased Decreased Platelet Morphology Normal Normal Hypochromasia 1+ 1+ Anisocytosis 1+ 1+ Macrocytosis 1+ 1+ Prothrombin Time 30.0 SEC (9.30-11.50) 30.8 SEC (9.30-11.50) Prothromb Time International Ratio 3.0 (0.9-1.1) 3.0 (0.9-1.1) Activated Partial Thromboplast Time 53 SEC (23-33) 48 SEC (23-33) Sodium Level 136 MMOL/L (136-145) 136 MMOL/L (136-145) 135 MMOL/L (136-145) Potassium Level 3.5 MMOL/L (3.5-5.1) 4.4 MMOL/L (3.5-5.1) 4.3 MMOL/L (3.5-5.1) Chloride Level 106 MMOL/L (98-107) 107 MMOL/L (98-107) 107 MMOL/L (98-107) Carbon Dioxide Level 25 MMOL/L (21-32) 24 MMOL/L (21-32) 25 MMOL/L (21-32) Anion Gap 5 mmol/L (5-15) 5 mmol/L (5-15) 3 mmol/L (5-15) Blood Urea Nitrogen 11 mg/dL (7-18) 8 mg/dL (7-18) 7 mg/dL (7-18) Creatinine 0.9 MG/DL (0.55-1.30) 0.8 MG/DL (0.55-1.30) 0.8 MG/DL (0.55-1.30) Estimat Glomerular Filtration Rate > 60 mL/min (>60) > 60 mL/min (>60) > 60 mL/min (>60) Glucose Level 90 MG/DL (74-106) 117 MG/DL (74-106) 90 MG/DL (74-106) Uric Acid 2.9 MG/DL (2.6-7.2) 2.0 MG/DL (2.6-7.2) Calcium Level 7.7 MG/DL (8.5-10.1) 7.5 MG/DL (8.5-10.1) 7.7 MG/DL (8.5-10.1) Phosphorus Level 2.3 MG/DL (2.5-4.9) 1.8 MG/DL (2.5-4.9) Magnesium Level 1.5 MG/DL (1.8-2.4) 1.8 MG/DL (1.8-2.4) Total Bilirubin 7.8 MG/DL (0.2-1.0) 8.7 MG/DL (0.2-1.0) 8.5 MG/DL (0.2-1.0) Direct Bilirubin 5.8 MG/DL (0.0-0.3) 5.9 MG/DL (0.0-0.3) 6.1 MG/DL (0.0-0.3) Gamma Glutamyl Transpeptidase 53 U/L (5-85) Aspartate Amino Transf (AST/SGOT) 500 U/L (15-37) 461 U/L (15-37) 434 U/L (15-37) Alanine Aminotransferase (ALT/SGPT) 177 U/L (12-78) 170 U/L (12-78) 172 U/L (12-78) Alkaline Phosphatase 237 U/L (46-116) 248 U/L (46-116) 264 U/L (46-116) Total Protein 8.1 G/DL (6.4-8.2) 8.7 G/DL (6.4-8.2) 9.1 G/DL (6.4-8.2) Albumin 1.4 G/DL (3.4-5.0) 1.7 G/DL (3.4-5.0) 1.7 G/DL (3.4-5.0) Globulin 6.7 g/dL 7.0 g/dL 7.4 g/dL Albumin/Globulin Ratio 0.2 (1.0-2.7) 0.2 (1.0-2.7) 0.2 (1.0-2.7) Height (Feet): 5 Height (Inches): 4.00 Weight (Pounds): 200 Objective PHYSICAL EXAMINATION: VITAL SIGNS: reviewed, no fevers General: Patient laying in bed comfortably, NAD on room air HEENT: Scleral icterus, EOMs intact. Lids without swelling. No JVD, CHEST AND LUNGS: Reveals clear, normal, symmetrical breath sounds with no adventitious sounds. CARDIOVASCULAR: Reveals normal S1, S2 without murmurs, rubs, or clicks. ABDOMEN: Morbid obesity, distended, positive fluid wave, negative Olvera sign RECTAL: Deferred. MUSCULOSKELETAL: There is no tenderness to palpation. Range of motion is normal. NEUROLOGICAL: Alert and oriented x3 , nonfocal KleRichard rivera MD Aug 27, 2020 09:07
--- NOTE | 2020-08-27 09:44 | NUR ---
NURSE NOTES: received patient resting comfortably in bed, patient awake, alert, oriented x4, on room air, no sign of distress, denies pain or discomfort,HL patent, on fall precaution, bed in lowest position, call light within reach, wheels locked, side rails up x 3, Kept clean dry comfortable in bed, needs met and anticipated ken williamson.
--- NOTE | 2020-08-27 10:26 | Infectious Diseases Prog Note ---
Assessment/Plan Assessment/Plan IMPRESSION: Cirrhosis of liver, Hepatitis B, Anemia, Thrombocytopenia, Acidosis at the time of admission. Small ascites RECOMMENDATION: Observe off antibiotic. Will f/u hepatitis panel Clear for discharge Subjective ROS Limited/Unobtainable: No Constitutional: Reports: no symptoms Respiratory: Reports: no symptoms Cardiovascular: Reports: no symptoms Genitourinary: Reports: no symptoms Allergies: Coded Allergies: No Known Allergies (Unverified , 08/22/20) Objective Last 24 Hour Vital Signs Date Time Temp Pulse Resp B/P (MAP) Pulse Ox O2 Delivery O2 Flow Rate FiO2 08/27/20 08:17 Room Air 08/27/20 08:00 97.9 10 17 109/71 (84) 98 08/27/20 04:00 98.1 95 17 113/72 (86) 98 08/27/20 00:00 98.2 96 18 111/63 (79) 96 08/26/20 21:00 Room Air 08/26/20 20:00 97.9 104 20 104/55 (71) 95 08/26/20 16:00 98.6 106 18 109/56 (73) 96 08/26/20 12:00 97.9 109 17 119/69 (86) 100 Height (Feet): 5 Height (Inches): 4.00 Weight (Pounds): 200 HEENT: mucous membranes moist, other - icterus Respiratory/Chest: lungs clear Cardiovascular: normal rate Abdomen: soft, non tender Extremities: no edema Neurologic/Psychiatric: alert, oriented x 3, responsive Laboratory Tests Test 08/27/20 06:10 White Blood Count 8.0 K/UL (4.8-10.8) Red Blood Count 2.77 M/UL (4.20-5.40) L Hemoglobin 9.2 G/DL (12.0-16.0) L Hematocrit 29.0 % (37.0-47.0) L Mean Corpuscular Volume 104 FL (80-99) H Mean Corpuscular Hemoglobin 33.3 PG (27.0-31.0) H Mean Corpuscular Hemoglobin Concent 31.8 G/DL (32.0-36.0) L Red Cell Distribution Width 17.4 % (11.6-14.8) H Platelet Count 87 K/UL (150-450) L Mean Platelet Volume 8.9 FL (6.5-10.1) Neutrophils (%) (Auto) % (45.0-75.0) Lymphocytes (%) (Auto) % (20.0-45.0) Monocytes (%) (Auto) % (1.0-10.0) Eosinophils (%) (Auto) % (0.0-3.0) Basophils (%) (Auto) % (0.0-2.0) Neutrophils % (Manual) Pending Lymphocytes % (Manual) Pending Platelet Estimate Pending Platelet Morphology Pending Sodium Level 135 MMOL/L (136-145) L Potassium Level 4.3 MMOL/L (3.5-5.1) Chloride Level 107 MMOL/L (98-107) Carbon Dioxide Level 25 MMOL/L (21-32) Anion Gap 3 mmol/L (5-15) L Blood Urea Nitrogen 7 mg/dL (7-18) Creatinine 0.8 MG/DL (0.55-1.30) Estimat Glomerular Filtration Rate > 60 mL/min (>60) Glucose Level 90 MG/DL (74-106) Calcium Level 7.7 MG/DL (8.5-10.1) L Total Bilirubin 8.5 MG/DL (0.2-1.0) H Direct Bilirubin 6.1 MG/DL (0.0-0.3) H Aspartate Amino Transf (AST/SGOT) 434 U/L (15-37) H Alanine Aminotransferase (ALT/SGPT) 172 U/L (12-78) H Alkaline Phosphatase 264 U/L (46-116) H Total Protein 9.1 G/DL (6.4-8.2) H Albumin 1.7 G/DL (3.4-5.0) L Globulin 7.4 g/dL Albumin/Globulin Ratio 0.2 (1.0-2.7) L Current Medications Medications (Trade) Dose Ordered Sig/Emily Route PRN Reason Start Time Stop Time Status Last Admin Dose Admin Acetaminophen (Tylenol) 325 mg Q6H PRN ORAL Mild Pain (Pain Scale 1-3) 08/23/20 16:15 09/22/20 16:14 08/23/20 17:08 Furosemide (Lasix) 40 mg DAILY IV 08/24/20 06:45 09/23/20 06:44 08/27/20 08:20 Iron Sucrose 100 mg/Sodium Chloride 60 ml @ 240 mls/hr BEDTIME IVPB 08/23/20 21:00 08/27/20 21:14 08/26/20 20:26 Lorazepam (Ativan 2mg/ml 1ml) 1 mg Q2H PRN IV delerium tremens/seizure 08/22/20 21:45 08/29/20 21:44 Ondansetron HCl (Zofran) 4 mg Q6H PRN IVP Nausea & Vomiting 08/22/20 21:45 09/21/20 21:44 Pantoprazole (Protonix) 40 mg DAILY ORAL 08/23/20 09:00 09/22/20 08:59 08/27/20 08:19 Phosphorus (Phospha 250 Neutral) 500 mg THREE TIMES A DAY ORAL 08/26/20 13:00 09/25/20 12:59 08/27/20 08:19 Potassium Chloride (K-Dur) 40 meq TWICE A DAY ORAL 08/24/20 09:00 11/21/20 17:59 08/27/20 08:19 Spironolactone (Aldactone) 100 mg DAILY ORAL 08/24/20 06:45 09/23/20 06:44 08/27/20 08:20 Elijah Resendiz MD Aug 27, 2020 10:26
--- NOTE | 2020-08-27 10:38 | Nephrology Progress Note ---
Assessment/Plan Problem List: (1) Electrolyte imbalance (2) Anasarca (3) Cirrhosis (4) Anemia (5) Cholelithiasis Assessment Electrolyte imbalance Cirrhosis of the liver, ascites Hepatitis B Previous alcohol dependent Gallstones Anemia Plan August 27: Labs reviewed. Medication list reviewed. Not much to add from renal standpoint of view. Continue per GI. August 26: Labs reviewed. Abnormal electrolyte addressed. Medication list reviewed no paracentesis was done. Patient is stable for discharge and follow- up at the liver clinic. August 25: Labs reviewed. Low magnesium and low potassium addressed. Discussed with GI. Continue current management. Stable for discharge from renal standpoint of view. August 24: No labs drawn today. Stable from renal standpoint of view. paracentesis, pending Check AFP albumin infusion diuretic ( lasix 40 mg iv and aldactone 100 mg po) has out patient hepatology fu needs transplant evaluation and hep B treatment vit k given Subjective ROS Limited/Unobtainable: No Constitutional: Reports: malaise Objective Objective Last 24 Hour Vital Signs Date Time Temp Pulse Resp B/P (MAP) Pulse Ox O2 Delivery O2 Flow Rate FiO2 08/27/20 08:17 Room Air 08/27/20 08:00 97.9 10 17 109/71 (84) 98 08/27/20 04:00 98.1 95 17 113/72 (86) 98 08/27/20 00:00 98.2 96 18 111/63 (79) 96 08/26/20 21:00 Room Air 08/26/20 20:00 97.9 104 20 104/55 (71) 95 08/26/20 16:00 98.6 106 18 109/56 (73) 96 08/26/20 12:00 97.9 109 17 119/69 (86) 100 Intake and Output 08/26/20 08/27/20 19:00 07:00 Intake Total 1000 ml 540 ml Balance 1000 ml 540 ml Intake Oral 1000 ml 480 ml IV Total 60 ml # Voids 3 Current Medications Medications (Trade) Dose Ordered Sig/Emily Route PRN Reason Start Time Stop Time Status Last Admin Dose Admin Acetaminophen (Tylenol) 325 mg Q6H PRN ORAL Mild Pain (Pain Scale 1-3) 08/23/20 16:15 09/22/20 16:14 08/23/20 17:08 Furosemide (Lasix) 40 mg DAILY IV 08/24/20 06:45 09/23/20 06:44 08/27/20 08:20 Iron Sucrose 100 mg/Sodium Chloride 60 ml @ 240 mls/hr BEDTIME IVPB 08/23/20 21:00 08/27/20 21:14 08/26/20 20:26 Lorazepam (Ativan 2mg/ml 1ml) 1 mg Q2H PRN IV delerium tremens/seizure 08/22/20 21:45 08/29/20 21:44 Ondansetron HCl (Zofran) 4 mg Q6H PRN IVP Nausea & Vomiting 08/22/20 21:45 09/21/20 21:44 Pantoprazole (Protonix) 40 mg DAILY ORAL 08/23/20 09:00 09/22/20 08:59 08/27/20 08:19 Phosphorus (Phospha 250 Neutral) 500 mg THREE TIMES A DAY ORAL 08/26/20 13:00 09/25/20 12:59 08/27/20 12:22 Potassium Chloride (K-Dur) 40 meq TWICE A DAY ORAL 08/24/20 09:00 11/21/20 17:59 08/27/20 08:19 Spironolactone (Aldactone) 100 mg DAILY ORAL 08/24/20 06:45 09/23/20 06:44 08/27/20 08:20 Laboratory Tests 08/27/20 06:10: White Blood Count 8.0, Red Blood Count 2.77L, Hemoglobin 9.2L, Hematocrit 29.0L, Mean Corpuscular Volume 104H, Mean Corpuscular Hemoglobin 33.3H, Mean Corpuscular Hemoglobin Concent 31.8L, Red Cell Distribution Width 17.4H, Platelet Count 87L, Mean Platelet Volume 8.9, Neutrophils (%) (Auto) , Lymphocytes (%) (Auto) , Monocytes (%) (Auto) , Eosinophils (%) (Auto) , Basophils (%) (Auto) , Neutrophils % (Manual) [Pending], Lymphocytes % (Manual) [Pending], Platelet Estimate [Pending], Platelet Morphology [Pending], Sodium Level 135L, Potassium Level 4.3, Chloride Level 107, Carbon Dioxide Level 25, Anion Gap 3L, Blood Urea Nitrogen 7, Creatinine 0.8, Estimat Glomerular Filtration Rate > 60, Glucose Level 90, Calcium Level 7.7L, Total Bilirubin 8.5H , Direct Bilirubin 6.1H, Aspartate Amino Transf (AST/SGOT) 434H, Alanine Aminotransferase (ALT/SGPT) 172H, Alkaline Phosphatase 264H, Total Protein 9.1H, Albumin 1.7L, Globulin 7.4, Albumin/Globulin Ratio 0.2L Height (Feet): 5 Height (Inches): 4.00 Weight (Pounds): 200 General Appearance: no apparent distress Cardiovascular: tachycardia Respiratory/Chest: decreased breath sounds Abdomen: distended Sidney Moerl MD Aug 27, 2020 10:37
[2020-08-27 12:00] VITALS: BP 120/72
--- NOTE | 2020-08-27 12:33 | General Progress Note ---
Subjective ROS Limited/Unobtainable: No Allergies: Coded Allergies: No Known Allergies (Unverified , 08/22/20) Objective Last 24 Hour Vital Signs Date Time Temp Pulse Resp B/P (MAP) Pulse Ox O2 Delivery O2 Flow Rate FiO2 08/27/20 12:00 97.0 78 17 120/72 (88) 98 08/27/20 08:17 Room Air 08/27/20 08:00 97.9 100 17 109/71 (84) 98 08/27/20 04:00 98.1 95 17 113/72 (86) 98 08/27/20 00:00 98.2 96 18 111/63 (79) 96 08/26/20 21:00 Room Air 08/26/20 20:00 97.9 104 20 104/55 (71) 95 08/26/20 16:00 98.6 106 18 109/56 (73) 96 Intake and Output 08/26/20 08/27/20 19:00 07:00 Intake Total 1000 ml 540 ml Balance 1000 ml 540 ml Intake Oral 1000 ml 480 ml IV Total 60 ml # Voids 3 Laboratory Tests 08/27/20 06:10: White Blood Count 8.0, Red Blood Count 2.77L, Hemoglobin 9.2L, Hematocrit 29.0L, Mean Corpuscular Volume 104H, Mean Corpuscular Hemoglobin 33.3H, Mean Corpuscular Hemoglobin Concent 31.8L, Red Cell Distribution Width 17.4H, Platelet Count 87L, Mean Platelet Volume 8.9, Neutrophils (%) (Auto) , Lymphocytes (%) (Auto) , Monocytes (%) (Auto) , Eosinophils (%) (Auto) , Basophils (%) (Auto) , Differential Total Cells Counted 100, Neutrophils % (Manual) 51, Lymphocytes % (Manual) 32, Monocytes % (Manual) 11H, Eosinophils % (Manual) 6H, Basophils % (Manual) 0, Band Neutrophils 0, Platelet Estimate DecreasedL, Platelet Morphology Normal, Polychromasia 1+, Hypochromasia 1+, Anisocytosis 1+, Macrocytosis 1+, Sodium Level 135L, Potassium Level 4.3, Chloride Level 107, Carbon Dioxide Level 25, Anion Gap 3L, Blood Urea Nitrogen 7, Creatinine 0.8, Estimat Glomerular Filtration Rate > 60, Glucose Level 90, Calcium Level 7.7L, Total Bilirubin 8.5H, Direct Bilirubin 6.1H, Aspartate Amino Transf (AST/SGOT) 434H, Alanine Aminotransferase (ALT/SGPT) 172H, Alkaline Phosphatase 264H, Total Protein 9.1H, Albumin 1.7L, Globulin 7.4, Albumin/Globulin Ratio 0.2L Height (Feet): 5 Height (Inches): 4.00 Weight (Pounds): 200 General Appearance: no apparent distress EENT: normal ENT inspection Neck: supple Cardiovascular: normal rate Respiratory/Chest: decreased breath sounds Abdomen: normal bowel sounds, non tender, soft Extremities: non-tender Assessment/Plan Status: progressing Assessment/Plan: hep B cirrhosis ascites gallstones coagulopathy MELD score 27 paracentesis, >>> not enough to tap AFP albumin diuretic ( lasix 40 mg iv and aldactone 100 mg po) has out patient hepatology fu needs transplant evaluation and hep B treatment as out patient Faraz Zapata MD Aug 27, 2020 12:33
--- NOTE | 2020-08-27 14:25 | NUR ---
[employer]URANCE [employer]IC[employer] FAXED TO [facility] #[phone] fax# [phone]
--- NOTE | 2020-08-27 15:31 | Cardiac Electrophysiology PN ---
Assessment/Plan Assessment/Plan 1. Shortness of breath due to volume overload. The patient has cirrhosis of the liver. Her INR is 3.2. D-dimer is 11.6. EF 75% On Lasix 40 iv daily and Aldactone 100 daily 2. Cirrhosis of the liver with ascites and with the INR, the patient received FFP and albumin and vitamin K Not enough fluid for paracentesis. 3. History of hepatitis B and alcoholism. Fu by Dr. Zapata. 4. Gallstones. KATHERINE RN Subjective Subjective No CP. On Lasix 40 iv daily and Aldactone 100 daily. Paracentesis cancelled as not enough fluid found by US Objective Last 24 Hour Vital Signs Date Time Temp Pulse Resp B/P (MAP) Pulse Ox O2 Delivery O2 Flow Rate FiO2 08/27/20 12:00 97.0 78 17 120/72 (88) 98 08/27/20 08:17 Room Air 08/27/20 08:00 97.9 100 17 109/71 (84) 98 08/27/20 04:00 98.1 95 17 113/72 (86) 98 08/27/20 00:00 98.2 96 18 111/63 (79) 96 08/26/20 21:00 Room Air 08/26/20 20:00 97.9 104 20 104/55 (71) 95 08/26/20 16:00 98.6 106 18 109/56 (73) 96 Intake and Output 08/26/20 08/27/20 19:00 07:00 Intake Total 1000 ml 540 ml Balance 1000 ml 540 ml Intake Oral 1000 ml 480 ml IV Total 60 ml # Voids 3 Laboratory Tests Test 08/27/20 06:10 White Blood Count 8.0 K/UL (4.8-10.8) Red Blood Count 2.77 M/UL (4.20-5.40) L Hemoglobin 9.2 G/DL (12.0-16.0) L Hematocrit 29.0 % (37.0-47.0) L Mean Corpuscular Volume 104 FL (80-99) H Mean Corpuscular Hemoglobin 33.3 PG (27.0-31.0) H Mean Corpuscular Hemoglobin Concent 31.8 G/DL (32.0-36.0) L Red Cell Distribution Width 17.4 % (11.6-14.8) H Platelet Count 87 K/UL (150-450) L Mean Platelet Volume 8.9 FL (6.5-10.1) Neutrophils (%) (Auto) % (45.0-75.0) Lymphocytes (%) (Auto) % (20.0-45.0) Monocytes (%) (Auto) % (1.0-10.0) Eosinophils (%) (Auto) % (0.0-3.0) Basophils (%) (Auto) % (0.0-2.0) Differential Total Cells Counted 100 Neutrophils % (Manual) 51 % (45-75) Lymphocytes % (Manual) 32 % (20-45) Monocytes % (Manual) 11 % (1-10) H Eosinophils % (Manual) 6 % (0-3) H Basophils % (Manual) 0 % (0-2) Band Neutrophils 0 % (0-8) Platelet Estimate Decreased L Platelet Morphology Normal Polychromasia 1+ Hypochromasia 1+ Anisocytosis 1+ Macrocytosis 1+ Sodium Level 135 MMOL/L (136-145) L Potassium Level 4.3 MMOL/L (3.5-5.1) Chloride Level 107 MMOL/L (98-107) Carbon Dioxide Level 25 MMOL/L (21-32) Anion Gap 3 mmol/L (5-15) L Blood Urea Nitrogen 7 mg/dL (7-18) Creatinine 0.8 MG/DL (0.55-1.30) Estimat Glomerular Filtration Rate > 60 mL/min (>60) Glucose Level 90 MG/DL (74-106) Calcium Level 7.7 MG/DL (8.5-10.1) L Total Bilirubin 8.5 MG/DL (0.2-1.0) H Direct Bilirubin 6.1 MG/DL (0.0-0.3) H Aspartate Amino Transf (AST/SGOT) 434 U/L (15-37) H Alanine Aminotransferase (ALT/SGPT) 172 U/L (12-78) H Alkaline Phosphatase 264 U/L (46-116) H Total Protein 9.1 G/DL (6.4-8.2) H Albumin 1.7 G/DL (3.4-5.0) L Globulin 7.4 g/dL Albumin/Globulin Ratio 0.2 (1.0-2.7) L Objective HEAD AND NECK: No JVD, but she has jaundiced sclerae. LUNGS: Clear. CARDIOVASCULAR: Regular S1 and S2 with no gallop. ABDOMEN: Distended with ascites. EXTREMITIES: 1+ pitting edema. Benjamin Cunningham MD Aug 27, 2020 15:31
[2020-08-27 15:49] VITALS: BP 103/56
--- NOTE | 2020-08-27 19:59 | NUR ---
NURSE HAND-OFF: Important Events on Shift:[NONE] Patient Status: [ON GOING] Diet: [LOW NA DIET] Pending Orders: [LABS] Pending Results/Labs:[NONE] Pending MD notification:[NONE] Latest Vital Signs: Temperature 97.3 , Pulse 100 , B/P 103 /56 , Respiratory Rate 17 , O2 SAT 95 , Room Air, O2 Flow Rate . Vital Sign Comment: [STABLE] Latest Marx Fall Score: 0 Fall Risk: Low Risk Safety Measures: Call light Within Reach, Bed Alarm Zone 1, Side Rails Side Rails x2, Bed position Low and Locked. Fall Precautions: Patient Fall Education Report given to [Ms Gee, RN].
[2020-08-27 20:00] VITALS: BP 112/64
--- NOTE | 2020-08-27 20:16 | General Progress Note ---
Subjective ROS Limited/Unobtainable: Yes Allergies: Coded Allergies: No Known Allergies (Unverified , 08/22/20) Objective Last 24 Hour Vital Signs Date Time Temp Pulse Resp B/P (MAP) Pulse Ox O2 Delivery O2 Flow Rate FiO2 08/27/20 15:49 97.3 100 17 103/56 (72) 95 08/27/20 12:00 97.0 78 17 120/72 (88) 98 08/27/20 08:17 Room Air 08/27/20 08:00 97.9 100 17 109/71 (84) 98 08/27/20 04:00 98.1 95 17 113/72 (86) 98 08/27/20 00:00 98.2 96 18 111/63 (79) 96 08/26/20 21:00 Room Air Intake and Output 08/26/20 08/27/20 19:00 07:00 Intake Total 1000 ml 540 ml Balance 1000 ml 540 ml Intake Oral 1000 ml 480 ml IV Total 60 ml # Voids 3 Laboratory Tests 08/27/20 06:10: White Blood Count 8.0, Red Blood Count 2.77L, Hemoglobin 9.2L, Hematocrit 29.0L, Mean Corpuscular Volume 104H, Mean Corpuscular Hemoglobin 33.3H, Mean Corpuscular Hemoglobin Concent 31.8L, Red Cell Distribution Width 17.4H, Platelet Count 87L, Mean Platelet Volume 8.9, Neutrophils (%) (Auto) , Lymphocytes (%) (Auto) , Monocytes (%) (Auto) , Eosinophils (%) (Auto) , Basophils (%) (Auto) , Differential Total Cells Counted 100, Neutrophils % (Manual) 51, Lymphocytes % (Manual) 32, Monocytes % (Manual) 11H, Eosinophils % (Manual) 6H, Basophils % (Manual) 0, Band Neutrophils 0, Platelet Estimate DecreasedL, Platelet Morphology Normal, Polychromasia 1+, Hypochromasia 1+, Anisocytosis 1+, Macrocytosis 1+, Sodium Level 135L, Potassium Level 4.3, Chloride Level 107, Carbon Dioxide Level 25, Anion Gap 3L, Blood Urea Nitrogen 7, Creatinine 0.8, Estimat Glomerular Filtration Rate > 60, Glucose Level 90, Calcium Level 7.7L, Total Bilirubin 8.5H, Direct Bilirubin 6.1H, Aspartate Amino Transf (AST/SGOT) 434H, Alanine Aminotransferase (ALT/SGPT) 172H, Alkaline Phosphatase 264H, Total Protein 9.1H, Albumin 1.7L, Globulin 7.4, Albumin/Globulin Ratio 0.2L Height (Feet): 5 Height (Inches): 4.00 Weight (Pounds): 200 Assessment/Plan Problem List: (1) Hepatitis B ICD Codes: B19.10 - Unspecified viral hepatitis B without hepatic coma SNOMED: 29904667, 036180601 (2) Pleural effusion, right ICD Codes: J90 - Pleural effusion, not elsewhere classified SNOMED: 39030229 (3) Peripheral edema ICD Codes: R60.9 - Edema, unspecified SNOMED: 108643492 (4) Anasarca ICD Codes: R60.1 - Generalized edema SNOMED: 929305486, 639428247 (5) Cirrhosis ICD Codes: K74.60 - Unspecified cirrhosis of liver SNOMED: 28603974 (6) Electrolyte imbalance ICD Codes: E87.8 - Other disorders of electrolyte and fluid balance, not elsewhere classified SNOMED: 030221561 (7) Anemia ICD Codes: D64.9 - Anemia, unspecified SNOMED: 871731224 (8) Migraine ICD Codes: G43.909 - Migraine, unspecified, not intractable, without status migrainosus SNOMED: 51988254 (9) Pleural effusion ICD Codes: J90 - Pleural effusion, not elsewhere classified SNOMED: 16599188 (10) UTI (urinary tract infection) ICD Codes: N39.0 - Urinary tract infection, site not specified SNOMED: 44316292 Status: progressing Assessment/Plan: check h/h abnormal cbc afebrile pleural effusion uti coagylapathy cirrhosis etoh abuse asictes paracentesis Norris Nolan MD Aug 27, 2020 20:16
[2020-08-27] MEDS: Iron Sucrose 100 MG in NS 55 ML IVPB SCH (20:29)
[2020-08-28] VITALS: BP 116/61
[2020-08-28 04:00] VITALS: BP 114/62
--- NOTE | 2020-08-28 04:00 | NUR ---
NURSE NOTES: patient resting comfortable in bed with no signs of distress. no pain no complain. no changes from previous assessment . call bedoya within reach, bed in low position. will continue to monitor.
[2020-08-28 06:43] LABS: HEMATOCRIT 26.5 % (37.0-47.0); HEMOGLOBIN 8.3 G/DL (12.0-16.0); MEAN CORPUSCULAR VOLUME 105 FL (80-99); PLATELET COUNT 90 K/UL (150-450); RED BLOOD COUNT 2.52 M/UL (4.20-5.40); RED CELL DISTRIBUTION WIDTH 19.1 % (11.6-14.8); WHITE BLOOD COUNT 8.2 K/UL (4.8-10.8)
[2020-08-28 06:56] LABS: AMMONIA 76 umol/L (11-32)
[2020-08-28 07:10] LABS: ALANINE AMINOTRANSFERASE 157 U/L (12-78); ALBUMIN 1.5 G/DL (3.4-5.0); ALBUMIN/GLOBULIN RATIO 0.2 (1.0-2.7); ALKALINE PHOSPHATASE 268 U/L (46-116); ANION GAP 5 mmol/L (5-15); ASPARTATE AMINO TRANSFERASE 384 U/L (15-37); BILIRUBIN,TOTAL 7.6 MG/DL (0.2-1.0); BLOOD UREA NITROGEN 5 mg/dL (7-18); CALCIUM 7.9 MG/DL (8.5-10.1); CARBON DIOXIDE 23 MMOL/L (21-32); CHLORIDE 105 MMOL/L (98-107); CREATININE 0.8 MG/DL (0.55-1.30); POTASSIUM 4.2 MMOL/L (3.5-5.1); SODIUM 133 MMOL/L (136-145)
--- NOTE | 2020-08-28 07:10 | NUR ---
NURSE NOTES: received patient on bed, sleeping, on room air, no sign of distress, denies pain or discomfort,HL patent, on fall precaution, bed in lowest position, call light within reach, wheels locked, side rails up x 3, Kept clean dry comfortable in bed, needs met and anticipated ken williamson
[2020-08-28 07:11] LABS: BILIRUBIN,DIRECT 5.8 MG/DL (0.0-0.3)
[2020-08-28 08:00] VITALS: BP 121/69
[2020-08-28] MEDS: Spironolactone 50mg tab ORAL SCH (08:10)
[2020-08-28] MEDS: Phospha 250 Neutral tab ORAL SCH ×2 (08:11→12:48)
--- NOTE | 2020-08-28 10:53 | Infectious Diseases Prog Note ---
Assessment/Plan Assessment/Plan IMPRESSION: Cirrhosis of liver, Hepatitis B, Anemia, Thrombocytopenia, Acidosis at the time of admission. Small ascites RECOMMENDATION: Observe off antibiotic. Will f/u hepatitis panel Clear for discharge Subjective ROS Limited/Unobtainable: Yes Allergies: Coded Allergies: No Known Allergies (Unverified , 08/22/20) Objective Last 24 Hour Vital Signs Date Time Temp Pulse Resp B/P (MAP) Pulse Ox O2 Delivery O2 Flow Rate FiO2 08/28/20 08:15 Room Air 08/28/20 08:00 97.7 101 19 121/69 (86) 99 08/28/20 04:00 98.6 100 18 114/62 (79) 96 08/28/20 00:00 98.4 103 18 116/61 (79) 97 08/27/20 21:00 Room Air 08/27/20 20:00 98.6 110 17 112/64 (80) 97 08/27/20 15:49 97.3 100 17 103/56 (72) 95 08/27/20 12:00 97.0 78 17 120/72 (88) 98 Height (Feet): 5 Height (Inches): 4.00 Weight (Pounds): 200 General Appearance: no acute distress HEENT: other - icterus Respiratory/Chest: lungs clear Cardiovascular: normal rate Abdomen: soft, non tender Extremities: no edema Neurologic/Psychiatric: other - sleeping Laboratory Tests Test 08/28/20 06:15 White Blood Count 8.2 K/UL (4.8-10.8) Red Blood Count 2.52 M/UL (4.20-5.40) L Hemoglobin 8.3 G/DL (12.0-16.0) L Hematocrit 26.5 % (37.0-47.0) L Mean Corpuscular Volume 105 FL (80-99) H Mean Corpuscular Hemoglobin 33.0 PG (27.0-31.0) H Mean Corpuscular Hemoglobin Concent 31.3 G/DL (32.0-36.0) L Red Cell Distribution Width 19.1 % (11.6-14.8) H Platelet Count 90 K/UL (150-450) L Mean Platelet Volume 8.9 FL (6.5-10.1) Neutrophils (%) (Auto) % (45.0-75.0) Lymphocytes (%) (Auto) % (20.0-45.0) Monocytes (%) (Auto) % (1.0-10.0) Eosinophils (%) (Auto) % (0.0-3.0) Basophils (%) (Auto) % (0.0-2.0) Differential Total Cells Counted 100 Neutrophils % (Manual) 55 % (45-75) Lymphocytes % (Manual) 33 % (20-45) Monocytes % (Manual) 9 % (1-10) Eosinophils % (Manual) 3 % (0-3) Basophils % (Manual) 0 % (0-2) Band Neutrophils 0 % (0-8) Platelet Estimate Decreased L Platelet Morphology Normal Polychromasia 1+ Hypochromasia 1+ Anisocytosis 2+ Macrocytosis 1+ Prothrombin Time 30.0 SEC (9.30-11.50) H Prothromb Time International Ratio 3.0 (0.9-1.1) H Sodium Level 133 MMOL/L (136-145) L Potassium Level 4.2 MMOL/L (3.5-5.1) Chloride Level 105 MMOL/L (98-107) Carbon Dioxide Level 23 MMOL/L (21-32) Anion Gap 5 mmol/L (5-15) Blood Urea Nitrogen 5 mg/dL (7-18) L Creatinine 0.8 MG/DL (0.55-1.30) Estimat Glomerular Filtration Rate > 60 mL/min (>60) Glucose Level 93 MG/DL (74-106) Calcium Level 7.9 MG/DL (8.5-10.1) L Total Bilirubin 7.6 MG/DL (0.2-1.0) H Direct Bilirubin 5.8 MG/DL (0.0-0.3) H Aspartate Amino Transf (AST/SGOT) 384 U/L (15-37) H Alanine Aminotransferase (ALT/SGPT) 157 U/L (12-78) H Alkaline Phosphatase 268 U/L (46-116) H Ammonia 76 umol/L (11-32) H Total Protein 8.6 G/DL (6.4-8.2) H Albumin 1.5 G/DL (3.4-5.0) L Globulin 7.1 g/dL Albumin/Globulin Ratio 0.2 (1.0-2.7) L Current Medications Medications (Trade) Dose Ordered Sig/Emily Route PRN Reason Start Time Stop Time Status Last Admin Dose Admin Acetaminophen (Tylenol) 325 mg Q6H PRN ORAL Mild Pain (Pain Scale 1-3) 08/23/20 16:15 09/22/20 16:14 08/23/20 17:08 Furosemide (Lasix) 40 mg DAILY IV 08/24/20 06:45 09/23/20 06:44 08/28/20 08:11 Lorazepam (Ativan 2mg/ml 1ml) 1 mg Q2H PRN IV delerium tremens/seizure 08/22/20 21:45 08/29/20 21:44 Ondansetron HCl (Zofran) 4 mg Q6H PRN IVP Nausea & Vomiting 08/22/20 21:45 09/21/20 21:44 Pantoprazole (Protonix) 40 mg DAILY ORAL 08/23/20 09:00 09/22/20 08:59 08/28/20 08:11 Phosphorus (Phospha 250 Neutral) 500 mg THREE TIMES A DAY ORAL 08/26/20 13:00 09/25/20 12:59 08/28/20 08:11 Potassium Chloride (K-Dur) 40 meq TWICE A DAY ORAL 08/24/20 09:00 11/21/20 17:59 08/28/20 08:11 Spironolactone (Aldactone) 100 mg DAILY ORAL 08/24/20 06:45 09/23/20 06:44 08/28/20 08:10 Elijah Resendiz MD Aug 28, 2020 10:53
--- NOTE | 2020-08-28 11:50 | Pulmonology Progress Note ---
Subjective ROS Limited/Unobtainable: Yes Interval Events: None major reported per nursing Constitutional: Reports: no symptoms HEENT: Repors: no symptoms Respiratory: Reports: no symptoms Cardiovascular: Reports: no symptoms Gastrointestinal/Abdominal: Reports: no symptoms Allergies: Coded Allergies: No Known Allergies (Unverified , 08/22/20) Objective Last 24 Hour Vital Signs Date Time Temp Pulse Resp B/P (MAP) Pulse Ox O2 Delivery O2 Flow Rate FiO2 08/28/20 08:15 Room Air 08/28/20 08:00 97.7 101 19 121/69 (86) 99 08/28/20 04:00 98.6 100 18 114/62 (79) 96 08/28/20 00:00 98.4 103 18 116/61 (79) 97 08/27/20 21:00 Room Air 08/27/20 20:00 98.6 110 17 112/64 (80) 97 08/27/20 15:49 97.3 100 17 103/56 (72) 95 08/27/20 12:00 97.0 78 17 120/72 (88) 98 Intake and Output 08/27/20 08/28/20 19:00 07:00 Intake Total 550 ml 780 ml Balance 550 ml 780 ml Intake Oral 550 ml 780 ml # Voids 3 2 General Appearance: no acute distress HEENT: atraumatic Respiratory: lungs clear Cardiovascular: normal rate Abdomen: distended, tender, other - striae Laboratory Tests 08/28/20 06:15: White Blood Count 8.2, Red Blood Count 2.52L, Hemoglobin 8.3L, Hematocrit 26.5L, Mean Corpuscular Volume 105H, Mean Corpuscular Hemoglobin 33.0H, Mean Corpuscular Hemoglobin Concent 31.3L, Red Cell Distribution Width 19.1H, Platelet Count 90L, Mean Platelet Volume 8.9, Neutrophils (%) (Auto) , Lymphocytes (%) (Auto) , Monocytes (%) (Auto) , Eosinophils (%) (Auto) , Basophils (%) (Auto) , Differential Total Cells Counted 100, Neutrophils % (Manual) 55, Lymphocytes % (Manual) 33, Monocytes % (Manual) 9, Eosinophils % (Manual) 3, Basophils % (Manual) 0, Band Neutrophils 0, Platelet Estimate DecreasedL, Platelet Morphology Normal, Polychromasia 1+, Hypochromasia 1+, Anisocytosis 2+, Macrocytosis 1+, Prothrombin Time 30.0H, Prothromb Time International Ratio 3.0H, Sodium Level 133L, Potassium Level 4.2, Chloride Level 105, Carbon Dioxide Level 23, Anion Gap 5, Blood Urea Nitrogen 5L, Creatinine 0.8, Estimat Glomerular Filtration Rate > 60, Glucose Level 93, Calcium Level 7.9L, Total Bilirubin 7.6H, Direct Bilirubin 5.8H, Aspartate Amino Transf (AST/SGOT) 384H, Alanine Aminotransferase (ALT/SGPT) 157H, Alkaline Phosphatase 268H, Ammonia 76H, Total Protein 8.6H, Albumin 1.5L, Globulin 7.1, Albumin/Globulin Ratio 0.2L Current Medications Medications (Trade) Dose Ordered Sig/Emily Route PRN Reason Start Time Stop Time Status Last Admin Dose Admin Acetaminophen (Tylenol) 325 mg Q6H PRN ORAL Mild Pain (Pain Scale 1-3) 08/23/20 16:15 09/22/20 16:14 08/23/20 17:08 Furosemide (Lasix) 40 mg DAILY IV 08/24/20 06:45 09/23/20 06:44 08/28/20 08:11 Lorazepam (Ativan 2mg/ml 1ml) 1 mg Q2H PRN IV delerium tremens/seizure 08/22/20 21:45 08/29/20 21:44 Ondansetron HCl (Zofran) 4 mg Q6H PRN IVP Nausea & Vomiting 08/22/20 21:45 09/21/20 21:44 Pantoprazole (Protonix) 40 mg DAILY ORAL 08/23/20 09:00 09/22/20 08:59 08/28/20 08:11 Phosphorus (Phospha 250 Neutral) 500 mg THREE TIMES A DAY ORAL 08/26/20 13:00 09/25/20 12:59 08/28/20 08:11 Potassium Chloride (K-Dur) 40 meq TWICE A DAY ORAL 08/24/20 09:00 11/21/20 17:59 08/28/20 08:11 Spironolactone (Aldactone) 100 mg DAILY ORAL 08/24/20 06:45 09/23/20 06:44 08/28/20 08:10 Assessment/Plan Assessment/Plan 1. DVT ppx -Elevated D-dimer (08/23) - Venous duplex of legs (08/23) negative for DVT -> SCD and ambulate 2. Hyperbilirubinemia, GI following 3. Elevated LFTs, GI following 4. Hypoalbuminemia, treated 5. UTI -Follow-up UCx negative - s/p broad spectrum Abx 6. Respiratory distress on arrival -Now saturating well on room air -Monitor for hypoxia and provide supplemental oxygen as needed 7. Small pleural effusion -Monitor effusions for now given normoxemia -We will consider thoracentesis if effusion increases in size 8. Cirrhosis of the liver, ascites -GI following -paracentesis canceled due to insufficient volume on Abd US (08/25) -Outpatient hepatology follow-up on 08/28/2020 per patient 9. Cholelithiasis, GI following 10. Anemia -On IV iron Noted DC planning Medically stable for discharge from pulmonary standpoint The care for this patient was discussed with my supervising physician. Time spent for this case was approximately 31 minutes. Harpal Mares Aug 28, 2020 11:50
[2020-08-28 12:00] VITALS: BP 121/69
--- NOTE | 2020-08-28 13:12 | Nephrology Progress Note ---
Assessment/Plan Problem List: (1) Electrolyte imbalance (2) Anasarca (3) Cirrhosis (4) Anemia (5) Cholelithiasis Assessment Electrolyte imbalance Cirrhosis of the liver, ascites Hepatitis B Previous alcohol dependent Gallstones Anemia Plan August 28: Labs reviewed. Serum sodium drifting down. Continue to monitor electrolytes and renal parameters. Medication list reviewed. Patient okay for discharge and follow-up at liver clinic as outpatient for consideration of liver transplant. August 27: Labs reviewed. Medication list reviewed. Not much to add from renal standpoint of view. Continue per GI. August 26: Labs reviewed. Abnormal electrolyte addressed. Medication list reviewed no paracentesis was done. Patient is stable for discharge and follow- up at the liver clinic. August 25: Labs reviewed. Low magnesium and low potassium addressed. Discussed with GI. Continue current management. Stable for discharge from jerad al standpoint of view. August 24: No labs drawn today. Stable from renal standpoint of view. paracentesis, pending Check AFP albumin infusion diuretic ( lasix 40 mg iv and aldactone 100 mg po) has out patient hepatology fu needs transplant evaluation and hep B treatment vit k given Subjective ROS Limited/Unobtainable: No Constitutional: Reports: malaise Objective Objective Last 24 Hour Vital Signs Date Time Temp Pulse Resp B/P (MAP) Pulse Ox O2 Delivery O2 Flow Rate FiO2 08/28/20 12:00 98.2 101 19 121/69 (86) 99 08/28/20 08:15 Room Air 08/28/20 08:00 97.7 101 19 121/69 (86) 99 08/28/20 04:00 98.6 100 18 114/62 (79) 96 08/28/20 00:00 98.4 103 18 116/61 (79) 97 08/27/20 21:00 Room Air 08/27/20 20:00 98.6 110 17 112/64 (80) 97 08/27/20 15:49 97.3 100 17 103/56 (72) 95 Intake and Output 08/27/20 08/28/20 19:00 07:00 Intake Total 550 ml 780 ml Balance 550 ml 780 ml Intake Oral 550 ml 780 ml # Voids 3 2 Current Medications Medications (Trade) Dose Ordered Sig/Emily Route PRN Reason Start Time Stop Time Status Last Admin Dose Admin Acetaminophen (Tylenol) 325 mg Q6H PRN ORAL Mild Pain (Pain Scale 1-3) 08/23/20 16:15 09/22/20 16:14 08/23/20 17:08 Furosemide (Lasix) 40 mg DAILY IV 08/24/20 06:45 09/23/20 06:44 08/28/20 08:11 Lorazepam (Ativan 2mg/ml 1ml) 1 mg Q2H PRN IV delerium tremens/seizure 08/22/20 21:45 08/29/20 21:44 Ondansetron HCl (Zofran) 4 mg Q6H PRN IVP Nausea & Vomiting 08/22/20 21:45 09/21/20 21:44 Pantoprazole (Protonix) 40 mg DAILY ORAL 08/23/20 09:00 09/22/20 08:59 08/28/20 08:11 Phosphorus (Phospha 250 Neutral) 500 mg THREE TIMES A DAY ORAL 08/26/20 13:00 09/25/20 12:59 08/28/20 12:48 Potassium Chloride (K-Dur) 40 meq TWICE A DAY ORAL 08/24/20 09:00 11/21/20 17:59 08/28/20 08:11 Spironolactone (Aldactone) 100 mg DAILY ORAL 08/24/20 06:45 09/23/20 06:44 08/28/20 08:10 Laboratory Tests 08/28/20 06:15: White Blood Count 8.2, Red Blood Count 2.52L, Hemoglobin 8.3L, Hematocrit 26.5L, Mean Corpuscular Volume 105H, Mean Corpuscular Hemoglobin 33.0H, Mean Corpuscular Hemoglobin Concent 31.3L, Red Cell Distribution Width 19.1H, Platelet Count 90L, Mean Platelet Volume 8.9, Neutrophils (%) (Auto) , Lymphocytes (%) (Auto) , Monocytes (%) (Auto) , Eosinophils (%) (Auto) , Basophils (%) (Auto) , Differential Total Cells Counted 100, Neutrophils % (Manual) 55, Lymphocytes % (Manual) 33, Monocytes % (Manual) 9, Eosinophils % (Manual) 3, Basophils % (Manual) 0, Band Neutrophils 0, Platelet Estimate DecreasedL, Platelet Morphology Normal, Polychromasia 1+, Hypochromasia 1+, Anisocytosis 2+, Macrocytosis 1+, Prothrombin Time 30.0H, Prothromb Time International Ratio 3.0H, Sodium Level 133L, Potassium Level 4.2, Chloride Level 105, Carbon Dioxide Level 23, Anion Gap 5, Blood Urea Nitrogen 5L, Creatinine 0.8, Estimat Glomerular Filtration Rate > 60, Glucose Level 93, Calcium Level 7.9L, Total Bilirubin 7.6H, Direct Bilirubin 5.8H, Aspartate Amino Transf (AST/SGOT) 384H, Alanine Aminotransferase (ALT/SGPT) 157H, Alkaline Phosphatase 268H, Ammonia 76H, Total Protein 8.6H, Albumin 1.5L, Globulin 7.1, Albumin/Globulin Ratio 0.2L Height (Feet): 5 Height (Inches): 4.00 Weight (Pounds): 200 General Appearance: no apparent distress Respiratory/Chest: chest wall non-tender Abdomen: distended Sidney Morel MD Aug 28, 2020 13:12
--- NOTE | 2020-08-28 14:15 | NUR ---
nurse notes Discharge to home obtained, patient agreed with the plan of care, discharge packet handed to patient, discharge teaching done all questions answered verbalized understanding ken williamson
--- NOTE | 2020-08-28 14:19 | NUR ---
CASE MANAGEMENT:REVIEW 08/28/20 SI: CIRRHOSIS. ANASARCA. CHOLELITHIASIS 98.2 101 19 121/69 99% ON RA H/H-8.3/26.5 PLT-90 TBILI/DBILI+7.6/5.8 AST/ALT+384/157 AMMONIA+76 IS: IV LASIX QD K-DUR PO BID ALDACTONE PO QD : MED/SURG STATUS DCP: FROM HOME PLAN: DISCHARGE ORDER NOTED
--- NOTE | 2020-08-28 14:23 | NUR ---
DISCHARGE PLAN DISCHARGE ORDER NOTED BEDSIDE NURSE WILL COORDINATE DISCHARGE TO HOME
--- NOTE | 2020-08-28 15:51 | Cardiac Electrophysiology PN ---
Assessment/Plan Assessment/Plan 1. Shortness of breath due to volume overload. The patient has cirrhosis of the liver. Her INR is 3.2. D-dimer is 11.6. EF 75% On Lasix 40 iv daily and Aldactone 100 daily 2. Cirrhosis of the liver with ascites and with the INR, the patient received FFP and albumin and vitamin K Not enough fluid for paracentesis. 3. History of hepatitis B and alcoholism. Fu by Dr. Zapata. 4. Gallstones. KATHERINE RN DC planning Subjective Subjective No CP. On Lasix 40 iv daily and Aldactone 100 daily. No events Objective Last 24 Hour Vital Signs Date Time Temp Pulse Resp B/P (MAP) Pulse Ox O2 Delivery O2 Flow Rate FiO2 08/28/20 12:00 98.2 101 19 121/69 (86) 99 08/28/20 08:15 Room Air 08/28/20 08:00 97.7 101 19 121/69 (86) 99 08/28/20 04:00 98.6 100 18 114/62 (79) 96 08/28/20 00:00 98.4 103 18 116/61 (79) 97 08/27/20 21:00 Room Air 08/27/20 20:00 98.6 110 17 112/64 (80) 97 Intake and Output0 08/27/20 08/28/20 19:00 07:00 Intake Total 550 ml 780 ml Balance 550 ml 780 ml Intake Oral 550 ml 780 ml # Voids 3 2 Laboratory Tests Test 08/28/20 06:15 White Blood Count 8.2 K/UL (4.8-10.8) Red Blood Count 2.52 M/UL (4.20-5.40) L Hemoglobin 8.3 G/DL (12.0-16.0) L Hematocrit 26.5 % (37.0-47.0) L Mean Corpuscular Volume 105 FL (80-99) H Mean Corpuscular Hemoglobin 33.0 PG (27.0-31.0) H Mean Corpuscular Hemoglobin Concent 31.3 G/DL (32.0-36.0) L Red Cell Distribution Width 19.1 % (11.6-14.8) H Platelet Count 90 K/UL (150-450) L Mean Platelet Volume 8.9 FL (6.5-10.1) Neutrophils (%) (Auto) % (45.0-75.0) Lymphocytes (%) (Auto) % (20.0-45.0) Monocytes (%) (Auto) % (1.0-10.0) Eosinophils (%) (Auto) % (0.0-3.0) Basophils (%) (Auto) % (0.0-2.0) Differential Total Cells Counted 100 Neutrophils % (Manual) 55 % (45-75) Lymphocytes % (Manual) 33 % (20-45) Monocytes % (Manual) 9 % (1-10) Eosinophils % (Manual) 3 % (0-3) Basophils % (Manual) 0 % (0-2) Band Neutrophils 0 % (0-8) Platelet Estimate Decreased L Platelet Morphology Normal Polychromasia 1+ Hypochromasia 1+ Anisocytosis 2+ Macrocytosis 1+ Prothrombin Time 30.0 SEC (9.30-11.50) H Prothromb Time International Ratio 3.0 (0.9-1.1) H Sodium Level 133 MMOL/L (136-145) L Potassium Level 4.2 MMOL/L (3.5-5.1) Chloride Level 105 MMOL/L (98-107) Carbon Dioxide Level 23 MMOL/L (21-32) Anion Gap 5 mmol/L (5-15) Blood Urea Nitrogen 5 mg/dL (7-18) L Creatinine 0.8 MG/DL (0.55-1.30) Estimat Glomerular Filtration Rate > 60 mL/min (>60) Glucose Level 93 MG/DL (74-106) Calcium Level 7.9 MG/DL (8.5-10.1) L Total Bilirubin 7.6 MG/DL (0.2-1.0) H Direct Bilirubin 5.8 MG/DL (0.0-0.3) H Aspartate Amino Transf (AST/SGOT) 384 U/L (15-37) H Alanine Aminotransferase (ALT/SGPT) 157 U/L (12-78) H Alkaline Phosphatase 268 U/L (46-116) H Ammonia 76 umol/L (11-32) H Total Protein 8.6 G/DL (6.4-8.2) H Albumin 1.5 G/DL (3.4-5.0) L Globulin 7.1 g/dL Albumin/Globulin Ratio 0.2 (1.0-2.7) L Objective HEAD AND NECK: No JVD, but she has jaundiced sclerae. LUNGS: Clear. CARDIOVASCULAR: Regular S1 and S2 with no gallop. ABDOMEN: Distended with ascites. EXTREMITIES: 1+ pitting edema. Benjamin Cunningham MD Aug 28, 2020 15:51
[2020-08-28 16:05] VITALS: BP 104/58
--- NOTE | 2020-08-28 16:43 | NUR ---
NURSE NOTES Discharged in stable condition with all belongings taken accompanied by payroll secretary , discharged via private car ken hope
--- NOTE | 2020-08-28 21:40 | General Progress Note ---
Subjective Allergies: Coded Allergies: No Known Allergies (Unverified , 08/22/20) Subjective above noted feels OK tolerating po no abd pain Objective Last 24 Hour Vital Signs Date Time Temp Pulse Resp B/P (MAP) Pulse Ox O2 Delivery O2 Flow Rate FiO2 08/28/20 16:05 99.0 103 18 104/58 (73) 99 08/28/20 12:00 98.2 101 19 121/69 (86) 99 08/28/20 08:15 Room Air 08/28/20 08:00 97.7 101 19 121/69 (86) 99 08/28/20 04:00 98.6 100 18 114/62 (79) 96 08/28/20 00:00 98.4 103 18 116/61 (79) 97 Intake and Output 08/27/20 08/28/20 19:00 07:00 Intake Total 550 ml 780 ml Balance 550 ml 780 ml Intake Oral 550 ml 780 ml # Voids 3 2 Laboratory Tests 08/28/20 06:15: White Blood Count 8.2, Red Blood Count 2.52L, Hemoglobin 8.3L, Hematocrit 26.5L, Mean Corpuscular Volume 105H, Mean Corpuscular Hemoglobin 33.0H, Mean Corpuscular Hemoglobin Concent 31.3L, Red Cell Distribution Width 19.1H, Platelet Count 90L, Mean Platelet Volume 8.9, Neutrophils (%) (Auto) , Lymphocytes (%) (Auto) , Monocytes (%) (Auto) , Eosinophils (%) (Auto) , Basophi ls (%) (Auto) , Differential Total Cells Counted 100, Neutrophils % (Manual) 55, Lymphocytes % (Manual) 33, Monocytes % (Manual) 9, Eosinophils % (Manual) 3, Basophils % (Manual) 0, Band Neutrophils 0, Platelet Estimate DecreasedL, Moi telet Morphology Normal, Polychromasia 1+, Hypochromasia 1+, Anisocytosis 2+, Macrocytosis 1+, Prothrombin Time 30.0H, Prothromb Time International Ratio 3.0H , Sodium Level 133L, Potassium Level 4.2, Chloride Level 105, Carbon Dioxide Level 23, Anion Gap 5, Blood Urea Nitrogen 5L, Creatinine 0.8, Estimat Glomerular Filtration Rate > 60, Glucose Level 93, Calcium Level 7.9L, Total Bilirubin 7.6H, Direct Bilirubin 5.8H, Aspartate Amino Transf (AST/SGOT) 384H, Alanine Aminotransferase (ALT/SGPT) 157H, Alkaline Phosphatase 268H, Ammonia 76H , Total Protein 8.6H, Albumin 1.5L, Globulin 7.1, Albumin/Globulin Ratio 0.2L Height (Feet): 5 Height (Inches): 4.00 Weight (Pounds): 200 Objective WDWN NCAT supple CTA RR Abd soft no edema Assessment/Plan Status: progressing Assessment/Plan: Assessment/Plan Status: progressing Assessment/Plan: hep B cirrhosis ascites gallstones coagulopathy MELD score 27 paracentesis, >>> not enough to tap AFP albumin diuretic ( lasix 40 mg iv and aldactone 100 mg po) has out patient hepatology fu needs transplant evaluation and hep B treatment as out patient Jane Azul MD Aug 28, 2020 21:40
--- NOTE | 2020-08-30 09:56 | Discharge Summary ---
Discharge Summary Discharge Summary _ Date of admission: 08/22/2020 Date of discharge: 08/28/[address] Nolan History of Present Illness and Brief Hospital Course Ms. Severino is a 25-year-old female with past medical history of hepatitis B, previous alcohol dependence, and obesity, who presented to the ED for evaluation of abdominal distention, leg edema, and shortness of breath x2 weeks. Abdomen/pelvis CT showed early signs of cirrhosis, cholelithiasis, nonspecific pericholecystic fluid, ascites, splenomegaly, small nonobstructing left renal stone without hydronephrosis, and colitis. Chest x-ray was notable for diffuse interstitial opacities consistent with pulmonary vascular congestion. She test ed negative for COVID-19 in the ER. Urinalysis findings were consistent with UTI. Patient was given broad-spectrum antibiotics. Patient was admitted to the hospital for further management. Given the abdominal distention and leg edema, patient was started on Lasix and Aldactone. Patient was scheduled for a paracentesis. However, abdominal ultrasound revealed only minimal ascitic fluid and paracentesis was canceled due to insufficient ascitic volume. Given the anemia, patient was transfused. Patient's H&H are improved and remained stable throughout her hospitalization. Patient was also treated for UTI. Her respiratory distress resolved. Patient remained stable throughout her hospitalization. Patient already had an appointment with cosmetics demonstrator as an outpatient. Patient was instructed to follow-up with her cosmetics demonstrator for evaluation for possible liver transplant. Patient was medically stable for discharge and was discharged on 08/28/2020. Consultants: Pulmonology Dr. Parry Pain management DEBORAH Dodson Hematology oncology Dr. Alaniz Infectious disease Dr. Resendiz Cardiology Dr. Cunningham Nephrology Dr. Kothari Discharge Condition Improved and stable Final diagnoses Respiratory distress Cirrhosis of the liver History of hepatitis B History of alcohol abuse Cholelithiasis Splenomegaly Pancytopenia Coagulopathy Hyperbilirubinemia Hypoalbuminemia UTI Small pleural effusion Ascites Anemia Acidosis Anasarca Electrolyte imbalance I have been assigned to dictate discharge summary for this account. Harpal Mares Aug 30, 2020 09:56
== END 2020-08-28 16:45 | disposition home or self-care (01) | DRG 280 ==
LOC: EMR 15:10 → 4E 17:43 → EDBEDREQ 18:01
PROC: 30233K1 Transfusion of Nonautologous Frozen Plasma into Peripheral Vein, Percutaneous Approach (ICD-10-PCS; principal; 2020-08-25)
DX: K70.31 Alcoholic cirrhosis of liver with ascites (principal); D61.818 Other pancytopenia; D68.4 Acquired coagulation factor deficiency; F10.20 Alcohol dependence, uncomplicated; N39.0 Urinary tract infection, site not specified; K80.20 Calculus of gallbladder without cholecystitis without obstruction; R06.03 Acute respiratory distress; E88.09 Other disorders of plasma-protein metabolism, not elsewhere classified; D64.9 Anemia, unspecified; E87.2 Acidosis; E87.8 Other disorders of electrolyte and fluid balance, not elsewhere classified; R16.1 Splenomegaly, not elsewhere classified; E66.01 Morbid (severe) obesity due to excess calories; B19.10 Unspecified viral hepatitis B without hepatic coma; E87.79 Other fluid overload; R60.1 Generalized edema
CPT/HCPCS: 36415; 71045; 74176; 76705; 80053; 81003; 81025; 82105; 82140; 82248; 82607; 82728; 82746; 82977; 83540; 83550; 83605; 83690; 83735; 83880; 84100; 84484; 84550; 85007; 85025; 85379; 85610; 85730; 86705; 86709; 86803; 86850; 86900; 86901; 86927; 87040; 87086; 87340; 93005; 93306; 93970; 96361; 96365; 96375; 99285; C9399; J3430; J8499

== ENCOUNTER 2020-09-04 13:14 | Inpatient (IN) | payer MEDICAID ==
[~2020-09-04] VITALS: Ht 162.6 cm; Wt 72.6 kg
[2020-09-04 14:25] VITALS: BP 117/60
--- NOTE | 2020-09-04 14:52 | NUR ---
pt arrived to ed from home for low abd/bladder pain. pt denies nausea/vomiting. pt states looser/soft stools with costa blood, described texture as sand. pt denies cough/fever/sob. pt jaundiced in appearance. pt denies painful urination. pt recently admitted to hospital for abd pain, dx with hepatitis B. pt states she followed up with primary md, did not do anyhting for her. iv placed, blood drawn & sent to lab. pt medicated per eMAR. pt on continuous monitor.
[2020-09-04 15:02] LABS: APPEARANCE,URINE CLEAR; BILIRUBIN, URINE 3+ (NEGATIVE); COLOR,URINE BROWN; GLUCOSE, URINE (UA) NEGATIVE (NEGATIVE); KETONES,URINE 1+ (NEGATIVE); LEUKOCYTE ESTERASE ,URINE 2+ (NEGATIVE); NITRITE,URINE POSITIVE (NEGATIVE); PH,URINE 5 (4.5-8.0); PROTEIN,URINE 2+ (NEGATIVE); UROBILINOGEN,URINE 8 MG/DL (0.0-1.0)
[2020-09-04 15:02] LABS: BASOPHILS % (AUTO) 2.4 % (0.0-2.0); EOSINOPHILS % (AUTO) 2.7 % (0.0-3.0); HEMATOCRIT 25.2 % (37.0-47.0); HEMOGLOBIN 8.4 G/DL (12.0-16.0); LYMPHOCYTES % (AUTO) 20.2 % (20.0-45.0); MEAN CORPUSCULAR VOLUME 108 FL (80-99); MONOCYTES % (AUTO) 12.6 % (1.0-10.0); NEUTROPHILS % (AUTO) 62.2 % (45.0-75.0); PLATELET COUNT 104 K/UL (150-450); RED BLOOD COUNT 2.34 M/UL (4.20-5.40); RED CELL DISTRIBUTION WIDTH 19.6 % (11.6-14.8); WHITE BLOOD COUNT 14.6 K/UL (4.8-10.8)
[2020-09-04 15:14] LABS: ANION GAP 9 mmol/L (5-15); BLOOD UREA NITROGEN 9 mg/dL (7-18); CALCIUM 7.5 MG/DL (8.5-10.1); CARBON DIOXIDE 19 MMOL/L (21-32); CHLORIDE 102 MMOL/L (98-107); CREATININE 0.8 MG/DL (0.55-1.30); POTASSIUM 4.2 MMOL/L (3.5-5.1); SODIUM 130 MMOL/L (136-145)
[2020-09-04 15:25] LABS: ALANINE AMINOTRANSFERASE 165 U/L (12-78); ALBUMIN 1.7 G/DL (3.4-5.0); ALBUMIN/GLOBULIN RATIO 0.2 (1.0-2.7); ALKALINE PHOSPHATASE 328 U/L (46-116); ASPARTATE AMINO TRANSFERASE 396 U/L (15-37); BILIRUBIN,TOTAL 8.2 MG/DL (0.2-1.0)
[2020-09-04 15:26] LABS: BILIRUBIN,DIRECT 6.4 MG/DL (0.0-0.3)
--- NOTE | 2020-09-04 15:29 | NUR ---
1520: pt taken to CT
--- NOTE | 2020-09-04 16:24 | Diagnostic Imaging Report ---
EXAM: CT Abdomen and Pelvis With Intravenous Contrast CLINICAL HISTORY: ABD PAIN TECHNIQUE: Axial computed tomography images of the abdomen and pelvis with intravenous contrast. CTDI is 11.6 mGy and DLP is 617.4 mGy-cm. One or more of the following dose reduction techniques were used: automated exposure control, adjustment of the mA and/or kV according to patient size, use of iterative reconstruction technique. COMPARISON: No relevant prior studies available. FINDINGS: ABDOMEN: Liver: Cirrhosis with portal hypertension. Gallbladder and bile ducts: Cholelithiasis. Pancreas: Unremarkable. Spleen: splenomegaly. Adrenals: Unremarkable. Kidneys and ureters: Nonobstructing left renal stone. Stomach and bowel: Nonspecific thickening of the GI tract in light of the liver disease and ascites. PELVIS: Appendix: Appendix not identified. Bladder: Unremarkable. Reproductive: Unremarkable. ABDOMEN and PELVIS: Intraperitoneal space: Ascites Bones/joints: No acute fracture. Soft tissues: Anasarca. Vasculature: Collaterals. No abdominal aortic aneurysm. Lymph nodes: No enlarged lymph nodes. IMPRESSION: 1. Cirrhosis with portal hypertension. 2. Appendix not identified. 3. Cholelithiasis.
[2020-09-04] MEDS ORDERED: cefTRIAXone 1 GM in NS 55 ML IVPB ONE (16:45)
[2020-09-04] MEDS ORDERED: Pantoprazole Inj IVP ONE (16:45)
[2020-09-04 17:08] VITALS: BP 118/43
--- NOTE | 2020-09-04 17:35 | NUR ---
attempted to call report. RN busy. was told RN will call back
--- NOTE | 2020-09-04 17:45 | NUR ---
report given to deniz rogers patient is to be transferd to room [address] [place]
[2020-09-04 18:20] VITALS: BP 96/64
--- NOTE | 2020-09-04 18:23 | NUR ---
1820: pt taken upstairs with belongings.
--- NOTE | 2020-09-04 19:13 | NUR ---
NURSE NOTES: Received report from PORTIA Avendaño. Pt is A&Ox4 in bed. Side rails up x2, bed locked and in lowest position, call light within reach. Will continue to monitor.
--- NOTE | 2020-09-04 19:14 | NUR ---
NURSE HAND-OFF: Important Events on Shift:[] Patient Status: [] Diet: [] Pending Orders: [] Pending Results/Labs:[] Pending MD notification:[] Latest Vital Signs: Temperature 99.3 , Pulse 107 , B/P 96 /64 , Respiratory Rate 18 , O2 SAT 100 , Room Air, O2 Flow Rate . Vital Sign Comment: [] Latest Marx Fall Score: 0 Fall Risk: Safety Measures: Call light , Bed Alarm , Side Rails , Bed position . Fall Precautions: Report given to [PORTIA Goodrich].
[2020-09-04 20:00] VITALS: BP 108/58
--- NOTE | 2020-09-04 20:00 | NUR ---
NURSE NOTES: Received orders from Doctor who is aware of patient labs and condition. Orders entered and carried out.
--- NOTE | 2020-09-04 20:03 | Emergency Room Report ---
History of Present Illness General Chief Complaint: Abdominal Pain Source: Patient Present Illness HPI 25-year-old female presents for evaluation. Complaining of lower abdominal pain. Complaining of blood in stool for the last 2 days. History of hepatitis B. History of cirrhosis. Is not currently taking any blood thinners. Pain is throbbing, 6 out of 10, nonradiating. Denies fevers or chills. Denies dysuria or hematuria. No other aggravating relieving factors. Denies any other associated symptoms Allergies: Coded Allergies: No Known Allergies (Unverified , 08/22/20) COVID-19 Screening Contact w/high risk pt: No Experienced COVID-19 symptoms?: No COVID-19 Testing performed ASSISTANT TECHNICIAN: No Patient History Past Medical History: other - Hepatitis/cirrhosis Past Surgical History: none Pertinent Family History: none Social History: Reports: alcohol use; Denies: smoking, drug use Now: No Immunizations: UTD Reviewed Nursing Documentation: PMH: Agreed; PSxH: Agreed Nursing Documentation-PMH Hx Cardiac Problems: No Hx Cancer: No Hx Gastrointestinal Problems: No - hep b ,anasarca,acities Hx Neurological Problems: No Review of Systems All Other Systems: negative except mentioned in HPI Physical Exam Vital Signs Date Time Temp Pulse Resp B/P (MAP) Pulse Ox O2 Delivery O2 Flow Rate FiO2 09/04/20 14:07 98.6 110 18 114/72 (86) 97 09/04/20 14:25 Room Air 09/04/20 14:50 100 Sp02 EP Interpretation: reviewed, normal General Appearance: no apparent distress, alert, GCS 15, non-toxic Head: normocephalic, atraumatic Eyes: bilateral eye normal inspection, bilateral eye PERRL, bilateral eye scleral icterus ENT: hearing grossly normal, normal pharynx, no angioedema, normal voice Neck: full range of motion, supple/symm/no masses Respiratory: chest non-tender, lungs clear, normal breath sounds, speaking full sentences Cardiovascular #1: regular rate, rhythm, no edema Cardiovascular #2: 2+ carotid (R), 2+ carotid (L), 2+ radial (R), 2+ radial (L), 2+ dorsalis pedis (R), 2+ dorsalis pedis (L) Gastrointestinal: normal bowel sounds, soft, non-distended, no guarding, no rebound, tenderness Rectal: deferred Genitourinary: normal inspection, no CVA tenderness Musculoskeletal: back normal, normal range of motion, gait/station normal, non- tender Neurologic: alert, motor strength/tone normal, oriented x3, sensory intact, responsive, speech normal Psychiatric: judgement/insight normal, memory normal, mood/affect normal, no suicidal/homicidal ideation Reflexes: 3+ bicep (R), 3+ bicep (L), 3+ tricep (R), 3+ tricep (L), 3+ knee (R), 3+ knee (L) Skin: jaundice Lymphatic: no adenopathy Medical Decision Making Diagnostic Impression: Primary Impression: Cirrhosis Qualified Codes: K74.60 - Unspecified cirrhosis of liver; R18.8 - Other ascites Additional Impressions: LGI bleed Jaundice UTI (urinary tract infection) Qualified Codes: N39.0 - Urinary tract infection, site not specified ER Course Hospital Course 25-year-old F presents to ED with rectal bleeding, abd pain Differential diagnoses include: UGIB, LGIB, hemorrhoids Clinical course Patient placed on stretcher. nurse monitoring. After initial history and physical I ordered labs, IV fluids, UA Labs - noted leukocytosis, Hb/Hct stable. platelets low. LFTs markedly elevated. Some coagulopathy and identified UA positive bacteria CT shows ascites and some portal hypertension. Protonix given. Case discussed with Dr. Nolan and he agreed to accept the patient to his service for further care and support I feel this is a highly complex case requiring extensive working including EKG/Rhythm strip, Xray/CT/US, Blood/urine lab work, repeat exams while in ED, and administration of strong opiates/narcotics for pain control, admission to hospital or close patient follow up. Diagnosis - LGIB, cirrhosis, jaundice, UTI Patient admitted to floor in serious condition Laboratory Tests Test 09/04/20 14:00 09/04/20 14:43 Urine Color Brown Urine Appearance Clear Urine pH 5 (4.5-8.0) Urine Specific [place] 1.025 (1.005-1.035) Urine Protein 2+ (NEGATIVE) H Urine Glucose (UA) Negative (NEGATIVE) Urine Ketones 1+ (NEGATIVE) H Urine Blood 2+ (NEGATIVE) H Urine Nitrite Positive (NEGATIVE) H Urine Bilirubin 3+ (NEGATIVE) H Urine Ictotest Positive (NEGATIVE) Urine Urobilinogen 8 MG/DL (0.0-1.0) H Urine Leukocyte Esterase 2+ (NEGATIVE) H Urine RBC 0-2 /HPF (0 - 2) Urine WBC 2-4 /HPF (0 - 2) Urine Squamous Epithelial Cells Few /LPF (NONE/OCC) Urine Bacteria Few /HPF (NONE) Urine Mucus Few /LPF (NONE/OCC) H Urine HCG, Qualitative Negative (NEGATIVE) White Blood Count 14.6 K/UL (4.8-10.8) H Red Blood Count 2.34 M/UL (4.20-5.40) L Hemoglobin 8.4 G/DL (12.0-16.0) L Hematocrit 25.2 % (37.0-47.0) L Mean Corpuscular Volume 108 FL (80-99) H Mean Corpuscular Hemoglobin 35.8 PG (27.0-31.0) H Mean Corpuscular Hemoglobin Concent 33.2 G/DL (32.0-36.0) Red Cell Distribution Width 19.6 % (11.6-14.8) H Platelet Count 104 K/UL (150-450) L Mean Platelet Volume 9.0 FL (6.5-10.1) Neutrophils (%) (Auto) 62.2 % (45.0-75.0) Lymphocytes (%) (Auto) 20.2 % (20.0-45.0) Monocytes (%) (Auto) 12.6 % (1.0-10.0) H Eosinophils (%) (Auto) 2.7 % (0.0-3.0) Basophils (%) (Auto) 2.4 % (0.0-2.0) H Prothrombin Time 29.1 SEC (9.30-11.50) H Prothromb Time International Ratio 3.0 (0.9-1.1) H Activated Partial Thromboplast Time 47 SEC (23-33) H Sodium Level 130 MMOL/L (136-145) L Potassium Level 4.2 MMOL/L (3.5-5.1) Chloride Level 102 MMOL/L (98-107) Carbon Dioxide Level 19 MMOL/L (21-32) L Anion Gap 9 mmol/L (5-15) Blood Urea Nitrogen 9 mg/dL (7-18) Creatinine 0.8 MG/DL (0.55-1.30) Estimat Glomerular Filtration Rate > 60 mL/min (>60) Glucose Level 103 MG/DL (74-106) Calcium Level 7.5 MG/DL (8.5-10.1) L Total Bilirubin 8.2 MG/DL (0.2-1.0) H Direct Bilirubin 6.4 MG/DL (0.0-0.3) H Aspartate Amino Transf (AST/SGOT) 396 U/L (15-37) H Alanine Aminotransferase (ALT/SGPT) 165 U/L (12-78) H Alkaline Phosphatase 328 U/L (46-116) H Total Protein 9.0 G/DL (6.4-8.2) H Albumin 1.7 G/DL (3.4-5.0) L Globulin 7.3 g/dL Albumin/Globulin Ratio 0.2 (1.0-2.7) L Lipase 363 U/L (73-393) CT/MRI/US Diagnostic Results CT/MRI/US Diagnostic Results : Imaging Test Ordered: CT A/P Impression EXAM: CT Abdomen and Pelvis With Intravenous Contrast CLINICAL HISTORY: ABD PAIN TECHNIQUE: Axial computed tomography images of the abdomen and pelvis with intravenous contrast. CTDI is 11.6 mGy and DLP is 617.4 mGy-cm. One or more of the following dose reduction techniques were used: automated exposure control, adjustment of the mA and/or kV according to patient size, use of iterative reconstruction technique. COMPARISON: No relevant prior studies available. FINDINGS: ABDOMEN: Liver: Cirrhosis with portal hypertension. Gallbladder and bile ducts: Cholelithiasis. Pancreas: Unremarkable. Spleen: splenomegaly. Adrenals: Unremarkable. Kidneys and ureters: Nonobstructing left renal stone. Stomach and bowel: Nonspecific thickening of the GI tract in light of the liver disease and ascites. PELVIS: Appendix: Appendix not identified. Bladder: Unremarkable. Reproductive: Unremarkable. ABDOMEN and PELVIS: Intraperitoneal space: Ascites Bones/joints: No acute fracture. Soft tissues: Anasarca. Vasculature: Collaterals. No abdominal aortic aneurysm. Lymph nodes: No enlarged lymph nodes. IMPRESSION: 1. Cirrhosis with portal hypertension. 2. Appendix not identified. 3. Cholelithiasis. Last Vital Signs Date Time Temp Pulse Resp B/P (MAP) Pulse Ox O2 Delivery O2 Flow Rate FiO2 09/04/20 18:20 99.3 107 18 96/64 (75) 100 09/04/20 17:43 Room Air 100 Status: improved Disposition: ADMITTED INPATIENT Condition: Serious Referrals: [facility],REFERRING (PCP) Jr Flores MD Sep 04, 2020 20:03
[2020-09-04] MEDS ORDERED: HYDROmorphone 1mg/ml Carpuject IVP PRN (23:30)
[2020-09-05] VITALS: BP 104/54
[2020-09-05 04:00] VITALS: BP 106/59
--- NOTE | 2020-09-05 07:22 | NUR ---
NURSE HAND-OFF: Important Events on Shift: Pain x1 Patient Status: Sleeping Diet: NPO Pending Orders: Pending Results/Labs: Pending MD notification: Latest Vital Signs: Temperature 98.5 , Pulse 101 , B/P 106 /59 , Respiratory Rate 17 , O2 SAT 99 , Room Air, O2 Flow Rate . Vital Sign Comment: VSS Latest Marx Fall Score: 0 Fall Risk: Safety Measures: Call light , Bed Alarm , Side Rails , Bed position . Fall Precautions: Report given to PORTIA Camacho.
[2020-09-05 08:00] VITALS: BP 118/55
--- NOTE | 2020-09-05 08:44 | Consultation ---
History of Present Illness General Date patient seen: Sep 05, 2020 Chief Complaint: Abdominal Pain Present Illness HPI CONSULTING PHYSICIAN: Maral Hdez MD. REFERRING PHYSICIAN: Norrsi Nolan MD. PHYSICIAN DUCT LAYER HELPER: DEBORAH Saab. CHIEF COMPLAINT: Abdominal pain. HISTORY OF PRESENT ILLNESS: This is a 25-year-old female, who is being seen on the Med/Surg floor of [facility] for comprehensive pain management consultation. The patient is a known patient from previous admission now admitted under the care of Dr. Nolan due to abdominal pain, she was started on Dilaudid 1mg IV Q4H PRN as per Dr. Hdez and was given one dose. She now has no pain and I d/w her about changing to oral medication and she seems to understand. REVIEW OF SYSTEMS: Denies rash, fever, chills, sweating, dizziness, drowsiness, sore throat, or change in weight. No nausea, vomiting, diarrhea, or blood in the stool. No dysuria. PHYSICAL EXAMINATION: GENERAL: Alert, awake, and oriented. HEENT: PERRLA. NECK: Range of motion is full in all directions. No tenderness to paracervical muscles. No adenopathy. LUNGS: Decreased breath sounds bilaterally. HEART: S1 and S2, regular. ABDOMEN: Tenderness to palpation. BACK: Range of motion is full in flexion and extension. EXTREMITIES: Upper and lower extremity range of motion is full in all direction. No cyanosis. No clubbing. Sensory is intact. Reflexes are not obtainable. No adenopathy. Allergies: Coded Allergies: No Known Allergies (Unverified , 08/22/20) Medication History Scheduled Hydroxyzine Pamoate* (Vistaril*), 50 MG ORAL EVERY 6 HOURS Nitrofurantoin Monohyd/M-Cryst (Nitrofurantoin [place]-Mcr 100 mg), 100 MG ORAL Q12H Riboflavin (Riboflavin), 400 MG PO DAILY Sumatriptan Succinate* (Imitrex*), 50 MG ORAL DAILY PRN MIGRAINE Patient History Healthcare decision maker Resuscitation status Advanced Directive on File Physical Exam Last 24 Hour Vital Signs Date Time Temp Pulse Resp B/P (MAP) Pulse Ox O2 Delivery O2 Flow Rate FiO2 09/05/20 08:00 98.6 107 16 118/55 (76) 100 09/05/20 04:00 98.5 101 17 106/59 (75) 99 09/05/20 00:00 98.6 111 19 104/54 (71) 100 09/04/20 20:00 98.1 114 18 108/58 (75) 98 09/04/20 18:20 99.3 107 18 96/64 (75) 100 09/04/20 17:43 98.6 109 20 118/43 100 Room Air 100 09/04/20 17:08 109 20 118/43 100 Room Air 09/04/20 14:50 100 20 Room Air 100 09/04/20 14:25 107 24 117/60 100 Room Air 09/04/20 14:07 98.6 110 18 114/72 (86) 97 Intake and Output 09/04/20 09/05/20 19:00 07:00 Intake Total 1060 ml Balance 1060 ml Intake IV Total 1060 ml # Voids 2 Laboratory Tests Test 09/04/20 14:00 09/04/20 14:43 Urine Color Brown Urine Appearance Clear Urine pH 5 (4.5-8.0) Urine Specific [place] 1.025 (1.005-1.035) Urine Protein 2+ (NEGATIVE) H Urine Glucose (UA) Negative (NEGATIVE) Urine Ketones 1+ (NEGATIVE) H Urine Blood 2+ (NEGATIVE) H Urine Nitrite Positive (NEGATIVE) H Urine Bilirubin 3+ (NEGATIVE) H Urine Ictotest Positive (NEGATIVE) Urine Urobilinogen 8 MG/DL (0.0-1.0) H Urine Leukocyte Esterase 2+ (NEGATIVE) H Urine RBC 0-2 /HPF (0 - 2) Urine WBC 2-4 /HPF (0 - 2) Urine Squamous Epithelial Cells Few /LPF (NONE/OCC) Urine Bacteria Few /HPF (NONE) Urine Mucus Few /LPF (NONE/OCC) H Urine HCG, Qualitative Negative (NEGATIVE) White Blood Count 14.6 K/UL (4.8-10.8) H Red Blood Count 2.34 M/UL (4.20-5.40) L Hemoglobin 8.4 G/DL (12.0-16.0) L Hematocrit 25.2 % (37.0-47.0) L Mean Corpuscular Volume 108 FL (80-99) H Mean Corpuscular Hemoglobin 35.8 PG (27.0-31.0) H Mean Corpuscular Hemoglobin Concent 33.2 G/DL (32.0-36.0) Red Cell Distribution Width 19.6 % (11.6-14.8) H Platelet Count 104 K/UL (150-450) L Mean Platelet Volume 9.0 FL (6.5-10.1) Neutrophils (%) (Auto) 62.2 % (45.0-75.0) Lymphocytes (%) (Auto) 20.2 % (20.0-45.0) Monocytes (%) (Auto) 12.6 % (1.0-10.0) H Eosinophils (%) (Auto) 2.7 % (0.0-3.0) Basophils (%) (Auto) 2.4 % (0.0-2.0) H Prothrombin Time 29.1 SEC (9.30-11.50) H Prothromb Time International Ratio 3.0 (0.9-1.1) H Activated Partial Thromboplast Time 47 SEC (23-33) H Sodium Level 130 MMOL/L (136-145) L Potassium Level 4.2 MMOL/L (3.5-5.1) Chloride Level 102 MMOL/L (98-107) Carbon Dioxide Level 19 MMOL/L (21-32) L Anion Gap 9 mmol/L (5-15) Blood Urea Nitrogen 9 mg/dL (7-18) Creatinine 0.8 MG/DL (0.55-1.30) Estimat Glomerular Filtration Rate > 60 mL/min (>60) Glucose Level 103 MG/DL (74-106) Calcium Level 7.5 MG/DL (8.5-10.1) L Total Bilirubin 8.2 MG/DL (0.2-1.0) H Direct Bilirubin 6.4 MG/DL (0.0-0.3) H Aspartate Amino Transf (AST/SGOT) 396 U/L (15-37) H Alanine Aminotransferase (ALT/SGPT) 165 U/L (12-78) H Alkaline Phosphatase 328 U/L (46-116) H Total Protein 9.0 G/DL (6.4-8.2) H Albumin 1.7 G/DL (3.4-5.0) L Globulin 7.3 g/dL Albumin/Globulin Ratio 0.2 (1.0-2.7) L Lipase 363 U/L (73-393) Height (Feet): 5 Height (Inches): 4.00 Weight (Pounds): 160 Medications Current Medications Medications (Trade) Dose Ordered Sig/Emily Route PRN Reason Start Time Stop Time Status Last Admin Dose Admin Hydromorphone HCl (Dilaudid) 1 mg Q4H PRN IVP For Pain 09/04/20 23:30 09/11/20 23:29 09/04/20 23:49 Assessment/Plan Assessment/Plan: (1) Liver cirrhosis (2) Abdominal pain Patient will be discontinued off Dilaudid and started on Tramadol 25mg PO 1 tab Q4H PRN D/w Dr. Hdez and he concurred. Artur Katz Sep 05, 2020 08:44
[2020-09-05] MEDS ORDERED: traMADol 50mg tab ORAL PRN (08:45)
--- NOTE | 2020-09-05 10:02 | General Progress Note ---
Subjective ROS Limited/Unobtainable: Yes Allergies: Coded Allergies: No Known Allergies (Unverified , 08/22/20) Objective Last 24 Hour Vital Signs Date Time Temp Pulse Resp B/P (MAP) Pulse Ox O2 Delivery O2 Flow Rate FiO2 09/05/20 08:00 98.6 107 16 118/55 (76) 100 09/05/20 04:00 98.5 101 17 106/59 (75) 99 09/05/20 00:00 98.6 111 19 104/54 (71) 100 09/04/20 20:00 98.1 114 18 108/58 (75) 98 09/04/20 18:20 99.3 107 18 96/64 (75) 100 09/04/20 17:43 98.6 109 20 118/43 100 Room Air 100 09/04/20 17:08 109 20 118/43 100 Room Air 09/04/20 14:50 100 20 Room Air 100 09/04/20 14:25 107 24 117/60 100 Room Air 09/04/20 14:07 98.6 110 18 114/72 (86) 97 Intake and Output 09/04/20 09/05/20 19:00 07:00 Intake Total 1060 ml Balance 1060 ml Intake IV Total 1060 ml # Voids 2 Laboratory Tests 09/04/20 14:00: Urine Color Brown, Urine Appearance Clear, Urine pH 5, Urine Specific [place] 1.025, Urine Protein 2+H, Urine Glucose (UA) Negative, Urine Ketones 1+H, Urine Blood 2+H, Urine Nitrite PositiveH, Urine Bilirubin 3+H, Urine Ictotest Positive, Urine Urobilinogen 8H, Urine Leukocyte Esterase 2+H, Urine RBC 0-2, Urine WBC 2-4, Urine Squamous Epithelial Cells Few, Urine Bacteria Few, Urine Mucus FewH, Urine HCG, Qualitative Negative 09/04/20 14:43: White Blood Count 14.6H, Red Blood Count 2.34L, Hemoglobin 8.4L, Hematocrit 25.2L, Mean Corpuscular Volume 108H, Mean Corpuscular Hemoglobin 35.8H, Mean Corpuscular Hemoglobin Concent 33.2, Red Cell Distribution Width 19.6H, Platelet Count 104L, Mean Platelet Volume 9.0, Neutrophils (%) (Auto) 62.2, Lymphocytes (%) (Auto) 20.2, Monocytes (%) (Auto) 12.6H, Eosinophils (%) (Auto) 2.7, Basophils (%) (Auto) 2.4H, Prothrombin Time 29.1H, Prothromb Time International Ratio 3.0H, Activated Partial Thromboplast Time 47H, Sodium Level 130L, Potassium Level 4.2, Chloride Level 102, Carbon Dioxide Level 19L, Anion Gap 9, Blood Urea Nitrogen 9, Creatinine 0.8, Estimat Glomerular Filtration Rate > 60, Glucose Level 103, Calcium Level 7.5L, Total Bilirubin 8.2H, Direct Bilirubin 6.4H, Aspartate Amino Transf (AST/SGOT) 396H, Alanine Aminotransferase (ALT/SGPT) 165H, Alkaline Phosphatase 328H, Total Protein 9.0H, Albumin 1.7L, Globulin 7.3, Albumin/Globulin Ratio 0.2L, Lipase 363 Height (Feet): 5 Height (Inches): 4.00 Weight (Pounds): 160 General Appearance: alert EENT: scleral icterus Neck: supple Cardiovascular: normal rate Respiratory/Chest: decreased breath sounds Abdomen: hypoactive bowel sounds, distended Extremities: non-tender Assessment/Plan Assessment/Plan: Assessment/Plan Status: progressing Assessment/Plan: ? hep B cirrhosis ascites gallstones coagulopathy MELD score 27 paracentesis, >>> not enough to tap in last admission AFP has out patient hepatology fu drug screen advance diet AIH serology Faraz Zapata MD Sep 05, 2020 10:02
--- NOTE | 2020-09-05 10:08 | Consultation ---
Consult Note Consult Note HEMATOLOGY/ ONC CONSULTATION DATE OF CONSULTATION: 09/05/2020 [facility] MD: Dr. Nolan REASON FOR REFERRAL: Anemia Evaluation HPI: This is a 25-year-old female presents for rectal bleeding, she is comp laining of lower abdominal pain. Complaining of blood in stool for the last 2 days. History of hepatitis B. History of cirrhosis. Is not currently taking any blood thinners. Denies fevers or chills. Denies dysuria or hematuria. She has liver cirrhosis which she has a haptologist outpatient she states and her last drink was over 1 year ago. She states that she has been experiencing a few tablesppons of rectal bleeding without stool just plain bright red bleeding. She is currently not bleeding and she is NPO. Currently her hgb is 8.4 and plt is 104k. Her LFT's are elevated. We were consutled for anemia evaluation. PAST MEDICAL HISTORY: As stated above PAST SURGICAL HX: Denies FAMILY HISTORY: Non Contributory SOCIAL HISTORY: Denies smoking tobacco, no drugs and no alcohol use, last drink more than 1 yr ago. ALLERGIES: NKDA ROS a 14 point ros system was done pertinent positve in hpi Physical Exam Vitals: noted General: no acute distress obese Eyes icteric, sclera yellow ENT: moist mucus membranes - slightly dry Neck: full range of motion, no bony tend, other Respiratory: chest non-tender- Pacemaker left Cardiovascular: regular rate, rhythm Gastrointestinal: normal bowel sounds Genitourinary: no CVA tenderness Musculoskeletal: back normal, no calf tenderness, Neurologic: alert, knitted cloth examiner III-XII nml as tested Skin: warm/dry LAB DATA: Reviewed MEDS: Reviewed ASSESSMENT AND REC's 1. Anemia of acute rectal bleeding --> transfuse to keep hgb >7, check anemia panel --> stool ob collection --> GI work up per GI appreciate rec's 2. Liver Cirrhosis --> likely due to history of Hep B --> outpatient Bridge Repairer 3. Elevated LFT'S --> monitor 4. Coagulopathy due to liver disease Greatly appreciate consultation, D/W RN. Virginia Spivey NP Sep 05, 2020 10:08
[2020-09-05 10:31] LABS: HEMATOCRIT 22.3 % (37.0-47.0); HEMOGLOBIN 7.2 G/DL (12.0-16.0); MEAN CORPUSCULAR VOLUME 109 FL (80-99); PLATELET COUNT 90 K/UL (150-450); RED BLOOD COUNT 2.04 M/UL (4.20-5.40); RED CELL DISTRIBUTION WIDTH 20.7 % (11.6-14.8); WHITE BLOOD COUNT 13.3 K/UL (4.8-10.8)
[2020-09-05 10:50] LABS: INR 3.1 (0.9-1.1)
[2020-09-05 10:54] LABS: ALANINE AMINOTRANSFERASE 155 U/L (12-78); ALBUMIN 1.5 G/DL (3.4-5.0); ALBUMIN/GLOBULIN RATIO 0.2 (1.0-2.7); ALKALINE PHOSPHATASE 267 U/L (46-116); ANION GAP 7 mmol/L (5-15); ASPARTATE AMINO TRANSFERASE 375 U/L (15-37); BILIRUBIN,TOTAL 8.2 MG/DL (0.2-1.0); BLOOD UREA NITROGEN 13 mg/dL (7-18); CALCIUM 7.8 MG/DL (8.5-10.1); CARBON DIOXIDE 19 MMOL/L (21-32); CHLORIDE 104 MMOL/L (98-107); CREATININE 0.8 MG/DL (0.55-1.30); POTASSIUM 4.7 MMOL/L (3.5-5.1); SODIUM 130 MMOL/L (136-145)
[2020-09-05 10:56] LABS: AMMONIA 38 umol/L (11-32)
[2020-09-05 11:02] LABS: BILIRUBIN,DIRECT 6.3 MG/DL (0.0-0.3)
--- NOTE | 2020-09-05 11:47 | NUR ---
NURSE NOTES: Reported Rf=424, albumin=1.5, hemoglobin and hematocrit 7.2 and 22.3 respectively, to Dr. Norris Nolan. Instructed to add consult Dr. Richard Alaniz and Dr. Faraz Zapata.
[2020-09-05 12:00] VITALS: BP 132/60
--- NOTE | 2020-09-05 14:56 | NUR ---
CASE MANAGEMENT: INITIAL REVIEW 25 YO F PRESENTED TO ED FROM HOME CC: ABD PAIN PMHx: Hepatitis/cirrhosis SI:GIB. HEP B VS: T 98.6 HR 110 RR 18 B/P 114/72 SATS 97% ON RA LABS: WBC 14.6 NA 130 CO2 19 CA 7.5 TBILI 8.2 DBILI 6.4 AST 396 ALT 165 ALP 328 IS: NS BOLUS X 1 PATIENT ADMITTED TO MED/SURG 09/04/2020 @ 1545 DCP: HOME CONCURRENT REVIEW FOR 09/05/2020 SI:GIB. HEP B VS: T 98.2 HR 106 RR 18 B/P 132/60 SATS 100% ON RA LABS: WBC 13.3 HGB 7.2 HCT 22.3 NA 130 CO2 19 CA 7.8 TBILI 8.2 DBILI 6.3 AST 375 ALT 155 ALP 267 AMMONIA 38 IS:PRN MEDS ONLY MED/SURG
[2020-09-05 16:00] VITALS: BP 103/59
--- NOTE | 2020-09-05 16:59 | History and Physical Report ---
DATE OF ADMISSION: 09/04/2020 HISTORY OF PRESENT ILLNESS: The patient admitted for GI bleed and anemia. The patient has cirrhosis of the liver due to alcohol abuse. The patient is also being admitted for LFT elevation and UTI. The patient was recently discharged from the hospital, comes back again with GI blood in the stool, abdominal pain, and anemia for about [address] scan shows portal hypertension. The patient denies nausea or vomiting. Does have rectal bleeding. Denies dizziness. Denies passive loss of consciousness. Does have abdominal pain for 3 days. PAST MEDICAL HISTORY: History of GI bleed, cirrhosis of the liver, alcohol abuse, splenomegaly, thrombocytopenia, hepatitis B, history of pleural effusion, history of anemia, and history of cirrhosis. PAST SURGICAL HISTORY: None. SOCIAL HISTORY: She has history of marijuana use, history of alcohol abuse. Denies history of smoking. FAMILY HISTORY: Noncontributory. MEDICATIONS: None. ALLERGIES: No known allergies. REVIEW OF SYSTEMS: HEENT: Denies headaches. RESPIRATORY: Denies shortness of breath. Denies cough. CARDIOVASCULAR: Denies chest pain. GASTROINTESTINAL: Reports abdominal pain and blood in the stool for the past 3 days. Denies nausea, vomiting, or diarrhea. Denies constipation. EXTREMITIES: Denies pain in lower extremities. CENTRAL NERVOUS SYSTEM: Denies change in speech pattern. Denies weakness. PHYSICAL EXAMINATION: VITAL SIGNS: Temperature 98.6, pulse is 101, blood pressure 106/59. HEENT: PERRLA. NECK: Supple. No lymphadenopathy. CHEST: Clear to auscultation. CARDIOVASCULAR: Regular rate and rhythm. No murmurs or extra sounds. GASTROINTESTINAL: Distended, but nontender. No organomegaly. Abdomen is soft. EXTREMITIES: Does have 1+ edema. NEUROLOGIC: Reflexes on both sides, but no neurological deficit. Moves all extremities. LABORATORY DATA: WBC of 14.6, hemoglobin 8.4, platelet 104. Sodium 130, potassium 4.2, BUN of 9, creatinine 0.8, glucose of 103, AST of 396, ALT of 165, total bilirubin of 6.2. ASSESSMENT AND PLAN: GI bleed, cirrhosis, anemia, UTI, elevated LFTs. I have asked Dr. Richard Alaniz, Dr. Elijah Resendiz, Dr. Zapata, and Dr. Benavides to see the patient to help with the withdrawal symptoms. At this point, the patient does not have any withdrawal symptoms, with management of the anemia as well as cirrhosis, to find if there is any infectious etiology ____ the patient has UTI. Norris Nolan M.D. DR: Destiny JOB#: [id number] CC:
--- NOTE | 2020-09-05 19:22 | NUR ---
NURSE HAND-OFF: Important Events on Shift:[] Patient Status: [] Diet: [npo except ice chips, meds] Pending Orders: [] Pending Results/Labs:[] Pending MD notification:[] Latest Vital Signs: Temperature 99.3 , Pulse 113 , B/P 103 /59 , Respiratory Rate 18 , O2 SAT 100 , Room Air, O2 Flow Rate . Vital Sign Comment: [] Latest Marx Fall Score: 0 Fall Risk: Safety Measures: Call light , Bed Alarm , Side Rails , Bed position . Fall Precautions: Report given to [CASSANDRA Emanuel].
[2020-09-05 20:00] VITALS: BP 117/54
--- NOTE | 2020-09-05 22:55 | NUR ---
NURSE NOTES: RECEIVED PATIENT LYING IN BED, AWAKE, ALERT/ORIENTED X4, VERBALLY RESPONSIVE, H/H 7.2/22.3, PRBC INFUSING ORDERED, RIGHT AC/GAUGE 20, TOLERATING WELL, NO S/SX OF ADVERSE REACTION, WILL CONTINUE TO MONITOR. NO SIGNS AND SYMPTOMS OF ACUTE CARDIO RESPIRATORY DISTRESS/SHORTNESS OF BREATH, NO EDEMA NOTED. ABDOMEN SOFT, ROUND, NON TENDER, AUDIBLE BOWEL SOUNDS, DENIES ABDOMINAL PAIN, LAST BM 09/05/20, NO DIARRHEA. SIDE RAILS UP X2/BED IN LOWEST POSITION FOR SAFETY, ENCOURAGED PATIENT TO UTILIZE CALL LIGHT FOR ASSISTANCE, VERBALIZED UNDERSTANDING, CONTINUE WITH CURRENT PLAN OF CARE. NAD.
[2020-09-06] VITALS: BP 104/57
[2020-09-06 04:00] VITALS: BP 105/59
--- NOTE | 2020-09-06 06:25 | Hematology/Onc Progress Note ---
Assessment/Plan Assessment/Plan Assessment/Plan # Pancytopenia is related to hx of alcohol use and early cirrhosis --> imaging has been noted --> get para as needed, abd distension --> inr correct with ffp and vit k --> outpatient liver specialist recommended and dw her --> ALSO started on iv iron --> 4 units ffp 08/25/20 --> 1 unit 09/05 prbc --> hgb 7.2 # Coagulopathy due to liver disease/hepatitis B --> ffp and vit k correct her inr --> transfuse prn # Hepatitis B --> outpatient eval --> transplant eval outpatient # Hyperbilirubinemia, GI following # Elevated LFTs, GI following # Hypoalbuminemia # UTI # Respiratory distress on arrival # Small pleural effusion # Cirrhosis of the liver, ascites # Cholelithiasis, GI following Appreciate consultation and dw Rn Subjective Constitutional: Denies: no symptoms, chills, fever, malaise, weakness, other HEENT: Denies: no symptoms, eye pain, blurred vision, tearing, double vision, ear pain, ear discharge, nose pain, nose congestion, throat pain, throat swelling, mouth pain, mouth swelling, other Cardiovascular: Denies: no symptoms, chest pain, edema, irregular heart rate, lightheadedness, palpitations, syncope, other Respiratory: Denies: no symptoms, cough, shortness of breath, SOB with excertion, SOB at rest, sputum, wheezing, other Gastrointestinal/Abdominal: Denies: no symptoms, abdomen distended, abdominal pain, black stools, tarry stools, blood in stool, constipated, diarrhea, difficulty swallowing, nausea, poor appetite, poor fluid intake, rectal bleeding, vomiting, other Hematologic/Lymphatic: Denies: no symptoms, anemia, easy bleeding, easy bruising, adenopathy, other Allergies: Coded Allergies: No Known Allergies (Unverified , 08/22/20) Subjective 09/06 ongoing prbc transfusion, pending repeat cbc Objective Objective Current Medications Medications (Trade) Dose Ordered Sig/Emily Route PRN Reason Start Time Stop Time Status Last Admin Dose Admin Ondansetron HCl (Zofran) 4 mg Q6H PRN IVP Nausea & Vomiting 09/05/20 12:30 10/05/20 12:29 09/05/20 12:48 Tramadol HCl (Ultram) 25 mg Q4H PRN ORAL severe pain 09/05/20 08:45 09/12/20 08:44 09/06/20 00:43 Last 24 Hour Vital Signs Date Time Temp Pulse Resp B/P (MAP) Pulse Ox O2 Delivery O2 Flow Rate FiO2 09/06/20 04:00 97.0 111 18 105/59 (74) 100 09/06/20 01:13 98.6 09/06/20 00:00 99.1 113 20 104/57 (73) 100 09/05/20 21:00 Room Air 09/05/20 20:00 98.6 109 18 117/54 (75) 100 09/05/20 16:00 99.3 113 18 103/59 (74) 100 09/05/20 12:00 98.2 106 18 132/60 (84) 100 09/05/20 09:00 Room Air 09/05/20 08:00 98.6 107 16 118/55 (76) 100 09/05/20 04:00 98.5 101 17 106/59 (75) 99 09/05/20 00:00 98.6 111 19 104/54 (71) 100 09/04/20 20:00 98.1 114 18 108/58 (75) 98 09/04/20 18:20 99.3 107 18 96/64 (75) 100 09/04/20 17:43 98.6 109 20 118/43 100 Room Air 100 09/04/20 17:08 109 20 118/43 100 Room Air 09/04/20 14:50 100 20 Room Air 100 09/04/20 14:25 107 24 117/60 100 Room Air 09/04/20 14:07 98.6 110 18 114/72 (86) 97 Intake and Output 09/05/20 09/06/20 19:00 07:00 Intake Total 60 ml Balance 60 ml Intake Oral 60 ml # Voids 5 Labs Test 09/04/20 14:00 09/04/20 14:43 09/05/20 10:15 09/05/20 21:30 Urine Color Brown Urine Appearance Clear Urine pH 5 (4.5-8.0) Urine Specific [place] 1.025 (1.005-1.035) Urine Protein 2+ (NEGATIVE) Urine Glucose (UA) Negative (NEGATIVE) Urine Ketones 1+ (NEGATIVE) Urine Blood 2+ (NEGATIVE) Urine Nitrite Positive (NEGATIVE) Urine Bilirubin 3+ (NEGATIVE) Urine Ictotest Positive (NEGATIVE) Urine Urobilinogen 8 MG/DL (0.0-1.0) Urine Leukocyte Esterase 2+ (NEGATIVE) Urine RBC 0-2 /HPF (0 - 2) Urine WBC 2-4 /HPF (0 - 2) Urine Squamous Epithelial Cells Few /LPF (NONE/OCC) Urine Bacteria Few /HPF (NONE) Urine Mucus Few /LPF (NONE/OCC) Urine HCG, Qualitative Negative (NEGATIVE) White Blood Count 14.6 K/UL (4.8-10.8) 13.3 K/UL (4.8-10.8) Red Blood Count 2.34 M/UL (4.20-5.40) 2.04 M/UL (4.20-5.40) Hemoglobin 8.4 G/DL (12.0-16.0) 7.2 G/DL (12.0-16.0) Hematocrit 25.2 % (37.0-47.0) 22.3 % (37.0-47.0) Mean Corpuscular Volume 108 FL (80-99) 109 FL (80-99) Mean Corpuscular Hemoglobin 35.8 PG (27.0-31.0) 35.1 PG (27.0-31.0) Mean Corpuscular Hemoglobin Concent 33.2 G/DL (32.0-36.0) 32.1 G/DL (32.0-36.0) Red Cell Distribution Width 19.6 % (11.6-14.8) 20.7 % (11.6-14.8) Platelet Count 104 K/UL (150-450) 90 K/UL (150-450) Mean Platelet Volume 9.0 FL (6.5-10.1) 7.3 FL (6.5-10.1) Neutrophils (%) (Auto) 62.2 % (45.0-75.0) % (45.0-75.0) Lymphocytes (%) (Auto) 20.2 % (20.0-45.0) % (20.0-45.0) Monocytes (%) (Auto) 12.6 % (1.0-10.0) % (1.0-10.0) Eosinophils (%) (Auto) 2.7 % (0.0-3.0) % (0.0-3.0) Basophils (%) (Auto) 2.4 % (0.0-2.0) % (0.0-2.0) Prothrombin Time 29.1 SEC (9.30-11.50) 31.7 SEC (9.30-11.50) Prothromb Time International Ratio 3.0 (0.9-1.1) 3.1 (0.9-1.1) Activated Partial Thromboplast Time 47 SEC (23-33) Sodium Level 130 MMOL/L (136-145) 130 MMOL/L (136-145) Potassium Level 4.2 MMOL/L (3.5-5.1) 4.7 MMOL/L (3.5-5.1) Chloride Level 102 MMOL/L (98-107) 104 MMOL/L (98-107) Carbon Dioxide Level 19 MMOL/L (21-32) 19 MMOL/L (21-32) Anion Gap 9 mmol/L (5-15) 7 mmol/L (5-15) Blood Urea Nitrogen 9 mg/dL (7-18) 13 mg/dL (7-18) Creatinine 0.8 MG/DL (0.55-1.30) 0.8 MG/DL (0.55-1.30) Estimat Glomerular Filtration Rate > 60 mL/min (>60) > 60 mL/min (>60) Glucose Level 103 MG/DL (74-106) 89 MG/DL (74-106) Calcium Level 7.5 MG/DL (8.5-10.1) 7.8 MG/DL (8.5-10.1) Total Bilirubin 8.2 MG/DL (0.2-1.0) 8.2 MG/DL (0.2-1.0) Direct Bilirubin 6.4 MG/DL (0.0-0.3) 6.3 MG/DL (0.0-0.3) Aspartate Amino Transf (AST/SGOT) 396 U/L (15-37) 375 U/L (15-37) Alanine Aminotransferase (ALT/SGPT) 165 U/L (12-78) 155 U/L (12-78) Alkaline Phosphatase 328 U/L (46-116) 267 U/L (46-116) Total Protein 9.0 G/DL (6.4-8.2) 8.4 G/DL (6.4-8.2) Albumin 1.7 G/DL (3.4-5.0) 1.5 G/DL (3.4-5.0) Globulin 7.3 g/dL 6.9 g/dL Albumin/Globulin Ratio 0.2 (1.0-2.7) 0.2 (1.0-2.7) Lipase 363 U/L (73-393) Differential Total Cells Counted 100 Neutrophils % (Manual) 59 % (45-75) Lymphocytes % (Manual) 28 % (20-45) Monocytes % (Manual) 8 % (1-10) Eosinophils % (Manual) 2 % (0-3) Basophils % (Manual) 0 % (0-2) Band Neutrophils 3 % (0-8) Platelet Estimate Decreased Platelet Morphology Normal Polychromasia 1+ Hypochromasia 1+ Anisocytosis 3+ Macrocytosis 2+ Ferritin 673 NG/ML (8-388) Ammonia 38 umol/L (11-32) Urine Opiates Screen Negative (NEGATIVE) Urine Barbiturates Screen Negative (NEGATIVE) Phencyclidine (PCP) Screen Negative (NEGATIVE) Urine Amphetamines Screen Negative (NEGATIVE) Urine Benzodiazepines Screen Negative (NEGATIVE) Urine Cocaine Screen Negative (NEGATIVE) Urine Marijuana (THC) Screen Negative (NEGATIVE) Height (Feet): 5 Height (Inches): 4.00 Weight (Pounds): 160 General Appearance: alert Neck: normal alignment Cardiovascular: regular rhythm Respiratory/Chest: no respiratory distress Abdomen: no organomegaly Extremities: normal inspection Richard Alaniz MD Sep 06, 2020 06:25
[2020-09-06 07:04] LABS: HEMATOCRIT 25.3 % (37.0-47.0); HEMOGLOBIN 8.2 G/DL (12.0-16.0); MEAN CORPUSCULAR VOLUME 106 FL (80-99); PLATELET COUNT 88 K/UL (150-450); RED BLOOD COUNT 2.39 M/UL (4.20-5.40); RED CELL DISTRIBUTION WIDTH 20.7 % (11.6-14.8); WHITE BLOOD COUNT 12.9 K/UL (4.8-10.8)
[2020-09-06 07:11] LABS: AMMONIA 38 umol/L (11-32)
[2020-09-06 07:25] LABS: ALANINE AMINOTRANSFERASE 162 U/L (12-78); ALBUMIN 1.5 G/DL (3.4-5.0); ALBUMIN/GLOBULIN RATIO 0.2 (1.0-2.7); ALKALINE PHOSPHATASE 262 U/L (46-116); ANION GAP 5 mmol/L (5-15); ASPARTATE AMINO TRANSFERASE 383 U/L (15-37); BILIRUBIN,TOTAL 8.2 MG/DL (0.2-1.0); BLOOD UREA NITROGEN 14 mg/dL (7-18); CALCIUM 7.9 MG/DL (8.5-10.1); CARBON DIOXIDE 21 MMOL/L (21-32); CHLORIDE 102 MMOL/L (98-107); CREATININE 0.8 MG/DL (0.55-1.30); POTASSIUM 4.2 MMOL/L (3.5-5.1); SODIUM 128 MMOL/L (136-145)
[2020-09-06 07:28] LABS: BILIRUBIN,DIRECT 5.9 MG/DL (0.0-0.3)
--- NOTE | 2020-09-06 07:30 | NUR ---
NURSE NOTES: Received report from Maryann PEARCE, patient a/a/o x4 laying in bed with no signs of distress or other issues at this time. IV in the right AC gauge #20 HP. no skin issues. call light within reach, bed in lowest position. side rales up x2. I will f/u as needed. plan: possible d/c today
--- NOTE | 2020-09-06 07:30 | NUR ---
NURSE HAND-OFF: Important Events on Shift:[PATIENT COMPLAINED OF BACK PAIN, TRAMADOL 25MG NOT EFFECTIVE, NO NEW ORDERS FROM MD, PAIN RELIEVED BY WARM COMPRESS- S/P BLOOD TRANSFUSION/MD WANT HGB GREATER THAN 7, LATEST H/H 7.2/22.3, PLEASE FOLLOW UP WITH AM LABS] Patient Status: [FULL CODE, STABLE] Diet: [NPO EXCEPT ICE CHIPS/MEDS] Pending Orders: [AM LABS] Pending Results/Labs:[] Pending MD notification:[] Latest Vital Signs: Temperature 97.0 , Pulse 111 , B/P 105 /59 , Respiratory Rate 18 , O2 SAT 100 , Room Air, O2 Flow Rate . Vital Sign Comment: [TACHY, MAX 113, ASYMPTOMATIC] Latest Marx Fall Score: 20 Fall Risk: Low Risk Safety Measures: Call light Within Reach, Bed Alarm Zone 1, Side Rails Side Rails x2, Bed position Low and Locked. Fall Precautions: Patient Fall Education Report given to [PORTIA LYNN].
[2020-09-06 08:00] VITALS: BP 107/53
--- NOTE | 2020-09-06 08:43 | General Progress Note ---
Subjective Date patient seen: Sep 06, 2020 Time patient seen: 07:00 - am Allergies: Coded Allergies: No Known Allergies (Unverified , 08/22/20) Subjective HISTORY OF PRESENT ILLNESS: This is a 25-year-old female, who is being seen on the Med/Surg floor of [facility]. In bed and denies pain. No new complaints at this time. REVIEW OF SYSTEMS: Denies rash, fever, chills, sweating, dizziness, drowsiness, sore throat, or change in weight. No nausea, vomiting, diarrhea, or blood in the stool. No dysuria. Objective Last 24 Hour Vital Signs Date Time Temp Pulse Resp B/P (MAP) Pulse Ox O2 Delivery O2 Flow Rate FiO2 09/06/20 04:00 97.0 111 18 105/59 (74) 100 09/06/20 01:13 98.6 09/06/20 00:00 99.1 113 20 104/57 (73) 100 09/05/20 21:00 Room Air 09/05/20 20:00 98.6 109 18 117/54 (75) 100 09/05/20 16:00 99.3 113 18 103/59 (74) 100 09/05/20 12:00 98.2 106 18 132/60 (84) 100 09/05/20 09:00 Room Air Intake and Output 09/05/20 09/06/20 19:00 07:00 Intake Total 60 ml Balance 60 ml Intake Oral 60 ml # Voids 5 Laboratory Tests 09/05/20 10:15: White Blood Count 13.3H, Red Blood Count 2.04L, Hemoglobin 7.2L, Hematocrit 22.3L, Mean Corpuscular Volume 109H, Mean Corpuscular Hemoglobin 35.1H, Mean Corpuscular Hemoglobin Concent 32.1, Red Cell Distribution Width 20.7H, Platelet Count 90L, Mean Platelet Volume 7.3, Neutrophils (%) (Auto) , Lymphocytes (%) (Auto) , Monocytes (%) (Auto) , Eosinophils (%) (Auto) , Basophils (%) (Auto) , Differential Total Cells Counted 100, Neutrophils % (Manual) 59, Lymphocytes % (Manual) 28, Monocytes % (Manual) 8, Eosinophils % (Manual) 2, Basophils % (Manual) 0, Band Neutrophils 3, Platelet Estimate DecreasedL, Platelet Morphology Normal, Polychromasia 1+, Hypochromasia 1+, Anisocytosis 3+, Macrocytosis 2+, Prothrombin Time 31.7H, Prothromb Time International Ratio 3.1H , Sodium Level 130L, Potassium Level 4.7, Chloride Level 104, Carbon Dioxide Level 19L, Anion Gap 7, Blood Urea Nitrogen 13, Creatinine 0.8, Estimat Glomerular Filtration Rate > 60, Glucose Level 89, Calcium Level 7.8L, Ferritin 673H, Total Bilirubin 8.2H, Direct Bilirubin 6.3H, Aspartate Amino Transf (AST/SGOT) 375H, Alanine Aminotransferase (ALT/SGPT) 155H, Alkaline Phosphatase 267H, Ammonia 38H, Total Protein 8.4H, Albumin 1.5L, Globulin 6.9, Albumin/Globulin Ratio 0.2L 09/05/20 21:30: Urine Opiates Screen Negative, Urine Barbiturates Screen Negative, Phencyclidine (PCP) Screen Negative, Urine Amphetamines Screen Negative, Urine Benzodiazepines Screen Negative, Urine Cocaine Screen Negative, Urine Marijuana (THC) Screen Negative 09/06/20 05:35: White Blood Count 12.9H, Red Blood Count 2.39L, Hemoglobin 8.2L, Hematocrit 25.3L, Mean Corpuscular Volume 106H, Mean Corpuscular Hemoglobin 34.2H, Mean Corpuscular Hemoglobin Concent 32.4, Red Cell Distribution Width 20.7H, Platelet Count 88L, Mean Platelet Volume 9.4, Neutrophils (%) (Auto) , Lymphocytes (%) (Auto) , Monocytes (%) (Auto) , Eosinophils (%) (Auto) , Basophils (%) (Auto) , Neutrophils % (Manual) [Pending], Lymphocytes % (Manual) [Pending], Platelet Estimate [Pending], Platelet Morphology [Pending], Prothrombin Time 30.0H, Prothromb Time International Ratio 3.0H, Sodium Level 128L, Potassium Level 4.2, Chloride Level 102, Carbon Dioxide Level 21, Anion Gap 5, Blood Urea Nitrogen 14, Creatinine 0.8, Estimat Glomerular Filtration Rate > 60, Glucose Level 81, Calcium Level 7.9L, Total Bilirubin 8.2H, Direct Bilirubin 5.9H, Aspartate Amino Transf (AST/SGOT) 383H, Alanine Aminotransferase (ALT/SGPT) 162H, Alkaline Phosphatase 262H, Ammonia 38H, Total Protein 8.1, Albumin 1.5L, Globulin 6.6, Albumin/Globulin Ratio 0.2L, Activated Partial Thromboplast Time 55H, Anti- Nuclear Antibody Screen [Pending], F-Actin IgG Antibody [Pending] Height (Feet): 5 Height (Inches): 4.00 Weight (Pounds): 160 Objective PHYSICAL EXAMINATION: GENERAL: Alert, awake, and oriented. LUNGS: Decreased breath sounds bilaterally. HEART: S1 and S2, regular. ABDOMEN: Tenderness to palpation. EXTREMITIES: No cyanosis. No clubbing. NEURO: No changes. Assessment/Plan Assessment/Plan: (1) Abdominal pain (2) Liver Cirrhosis Patient to be continued on Tramadol D/w Dr. Hdez and he concurred. Artur Katz Sep 06, 2020 08:43
[2020-09-06 12:00] VITALS: BP 90/47
[2020-09-06] MEDS ORDERED: Levofloxacin 750mg tab ORAL SCH (12:30)
--- NOTE | 2020-09-06 13:27 | General Progress Note ---
Subjective ROS Limited/Unobtainable: Yes Allergies: Coded Allergies: No Known Allergies (Unverified , 08/22/20) Objective Last 24 Hour Vital Signs Date Time Temp Pulse Resp B/P (MAP) Pulse Ox O2 Delivery O2 Flow Rate FiO2 09/06/20 04:00 97.0 111 18 105/59 (74) 100 09/06/20 01:13 98.6 09/06/20 00:00 99.1 113 20 104/57 (73) 100 09/05/20 21:00 Room Air 09/05/20 20:00 98.6 109 18 117/54 (75) 100 09/05/20 16:00 99.3 113 18 103/59 (74) 100 Intake and Output 09/05/20 09/06/20 19:00 07:00 Intake Total 60 ml Balance 60 ml Intake Oral 60 ml # Voids 5 Laboratory Tests 09/05/20 21:30: Urine Opiates Screen Negative, Urine Barbiturates Screen Negative, Phencyclidine (PCP) Screen Negative, Urine Amphetamines Screen Negative, Urine Benzodiazepines Screen Negative, Urine Cocaine Screen Negative, Urine Marijuana (THC) Screen Negative 09/06/20 05:35: White Blood Count 12.9H, Red Blood Count 2.39L, Hemoglobin 8.2L, Hematocrit 25.3L, Mean Corpuscular Volume 106H, Mean Corpuscular Hemoglobin 34.2H, Mean Corpuscular Hemoglobin Concent 32.4, Red Cell Distribution Width 20.7H, Platelet Count 88L, Mean Platelet Volume 9.4, Neutrophils (%) (Auto) , Lymphocytes (%) (Auto) , Monocytes (%) (Auto) , Eosinophils (%) (Auto) , Basophils (%) (Auto) , Differential Total Cells Counted 100, Neutrophils % (Manual) 57, Lymphocytes % (Manual) 30, Monocytes % (Manual) 9, Eosinophils % (Manual) 3, Basophils % (Manual) 1, Band Neutrophils 0, Platelet Estimate DecreasedL, Platelet Morphology Normal, Hypochromasia 1+, Anisocytosis 1+, Macrocytosis 1+, Prothrombin Time 30.0H, Prothromb Time International Ratio 3.0H, Activated Partial Thromboplast Time 55H, Sodium Level 128L, Potassium Level 4.2, Chloride Level 102, Carbon Dioxide Level 21, Anion Gap 5, Blood Urea Nitrogen 14, Creatinine 0.8, Estimat Glomerular Filtration Rate > 60, Glucose Level 81, Calcium Level 7.9L, Total Bilirubin 8.2H, Direct Bilirubin 5.9H, Aspartate Amino Transf (AST/SGOT) 383H, Alanine Aminotransferase (ALT/SGPT) 162H, Alkaline Phosphatase 262H, Ammonia 38H, Total Protein 8.1, Albumin 1.5L, Globulin 6.6, Albumin/Globulin Ratio 0.2L, Anti-Nuclear Antibody Screen [Pending], F-Actin IgG Antibody [Pending] Height (Feet): 5 Height (Inches): 4.00 Weight (Pounds): 160 General Appearance: moderate distress EENT: normal ENT inspection, scleral icterus Neck: supple Cardiovascular: normal rate Respiratory/Chest: decreased breath sounds Abdomen: normal bowel sounds, non tender, soft Extremities: non-tender Assessment/Plan Assessment/Plan: Assessment/Plan Status: progressing Assessment/Plan: ? hep B cirrhosis ascites gallstones coagulopathy MELD score 27 paracentesis, >>> not enough to tap in last admission AFP has out patient hepatology fu drug screen>>>neg advance diet AIH serology neg hep B serology Faraz Zapata MD Sep 06, 2020 13:27
--- NOTE | 2020-09-06 15:00 | NUR ---
NURSE NOTES: patient stated that wants to leave. RN thought risk and benefits of leaving against medical advice. patient verbalized understanding and continued wanting to leave against medical advice. pt left the floor with no signs of distress or other issues at this time. IV removed prior to d/c. patient's mother will provide transportation. I will f/u as needed.
--- NOTE | 2020-09-06 17:40 | NUR ---
[employer]IC[employer] FAXED TO [facility] [phone] PH opt 3
--- NOTE | 2020-09-06 19:59 | Consultation ---
DATE OF CONSULTATION: 09/06/2020 INFECTIOUS DISEASES CONSULTATION CONSULTING PHYSICIAN: Elijah Resendiz MD PRIMARY ATTENDING PHYSICIAN: Norris Nolan MD REASON FOR CONSULTATION: Leukocytosis and UTI. HISTORY OF PRESENT ILLNESS: This is a 25-year-old female admitted on 09/04/2020 complaining of lower abdominal pain. At the time of admission, it was 6/10 associated with lower GI bleeding. No dysuria. No hematuria. No fever. PAST MEDICAL HISTORY: Recent admission to [facility] in August 2020, cirrhosis of liver with jaundice, and pancytopenia. ALLERGIES: No known drug allergies. MEDICATIONS: Levaquin started from today, Ultram, Zofran. SOCIAL HISTORY: Formerly used alcohol, stopped drinking 1 year ago. Single and has 2 children. Denies drug abuse and smoking. REVIEW OF SYSTEMS: As per history of present illness. PHYSICAL EXAMINATION: VITAL SIGNS: Temperature is 97, pulse 111, blood pressure is 105/59. GENERAL APPEARANCE: Seems to have normal weight. HEAD AND NECK: She has icterus in sclerae. HEART: Tachycardic. LUNGS: Clear. ABDOMEN: Soft. EXTREMITIES: She has periankle edema bilaterally. LABORATORY AND DIAGNOSTIC DATA: WBC at the time of admission was 14.6. Today, WBC is 12.9, hemoglobin 8.2, hematocrit 25.3, platelet is 88. Sodium 128, potassium 4.2, chloride 102, bicarb 21, BUN 14, creatinine 0.8, glucose 81. Total bilirubin is 8.2, AST is 383, ALT is 162, alkaline phosphatase is 262, albumin is 1.5. UA shows nitrite positive, bilirubin 3+, leukocyte esterase 2+, wbc's 2-4. Previous hepatitis serology is negative. The patient had a CT scan of abdomen and pelvis at the time of previous admission that showed also cholelithiasis, nonobstructive left renal stone, mild splenomegaly. IMPRESSION: Leukocytosis, positive leukocyte esterase in the UA, may have UTI, although leukocytosis may be reactive to lower GI bleeding, cirrhosis, has anemia and thrombocytopenia, cholelithiasis. RECOMMENDATION: May benefit from Levaquin for few days. Case was discussed with microbiology lab. At the end of my exam, I thank Dr. Nolan for involving me in the care of this patient. Elijah Resendiz M.D. DR: [place] JOB#: [id number] CC:
--- NOTE | 2020-09-07 14:58 | Discharge Summary ---
Discharge Summary Discharge Summary _ Date of admission: 09/04/2020 Patient left AGAINST MEDICAL ADVICE on 09/06/2020 History of Present Illness and Brief Hospital Course Ms. Glover is a 25-year-old female with past medical history of hepatitis B, and liver cirrhosis, who presented to the ED for evaluation of lower abdominal pain and bloody stool x2 days. Patient was recently admitted to [facility] for abdominal distention, leg edema, and respiratory distress. Patient did not undergo paracentesis due to insufficient volume. Patient was instructed to follow-up with an outpatient senior technical support engineer and was discharged. During this visit, initial laboratory studies were remarkable for leukocytosis, stable H&H and thrombocytopenia. LFTs were markedly elevated and urinalysis was positive for bacteria. Abdomen/pelvis CT was notable for cirrhosis with portal hypertension and cholelithiasis. Protonix was given. Patient was admitted to the hospital for further management. Her pancytopenia was likely related to history of alcohol abuse and early cirrhosis. Patient was started on IV iron. Patient was transfused as well. Patient was instructed to follow-up with an outpatient senior technical support engineer. Given her leukocytosis and positive leukocyte esterase in the urinalysis, patient was started on Levaquin. On 09/06/2020, patient stated that she wanted to leave the hospital AGAINST MEDICAL ADVICE. Patient verbalized understanding and continued wanting to leave the hospital. Patient left the hospital AGAINST MEDICAL ADVICE on 09/06/2020. Consultants: Hematology oncology Virginia Spivey NP Infectious disease Dr. Resendiz Pain management DEBORAH Dodson Gastroenterology Dr. Zapata Final diagnoses UTI Leukocytosis Anemia with acute rectal bleeding History of hepatitis B History of liver cirrhosis Elevated LFTs Coagulopathy Cholelithiasis Ascites Portal hypertension I have been assigned to dictate discharge summary for this account. I was not involved in the patient's management Harpal Mares Sep 07, 2020 14:58
== END 2020-09-06 15:00 | disposition left against medical advice (07) | DRG 253 ==
LOC: EMR 14:07 → 4E 15:45 → EDBEDREQ 17:23 → 4E 19:40
DX: K92.2 Gastrointestinal hemorrhage, unspecified (principal); N39.0 Urinary tract infection, site not specified; D68.4 Acquired coagulation factor deficiency; D62 Acute posthemorrhagic anemia; K70.31 Alcoholic cirrhosis of liver with ascites; D61.818 Other pancytopenia; J90 Pleural effusion, not elsewhere classified; B19.10 Unspecified viral hepatitis B without hepatic coma; E88.09 Other disorders of plasma-protein metabolism, not elsewhere classified; K80.20 Calculus of gallbladder without cholecystitis without obstruction; Z86.19 Personal history of other infectious and parasitic diseases; K76.6 Portal hypertension; F10.10 Alcohol abuse, uncomplicated; D69.6 Thrombocytopenia, unspecified
CPT/HCPCS: 36415; 74177; 80053; 80307; 81003; 81025; 82140; 82248; 82728; 83690; 85007; 85025; 85610; 85730; 86039; 86235; 86850; 86900; 86901; 86920; 96361; 96365; 96375; 99285; J2405; J7030